=== PATIENT | male | born 1965 | race Caucasian/White ===

== ENCOUNTER 2022-12-24 16:06 | Emergency (ER) | payer OTHER, SELFPAY ==
--- NOTE | ~2022-12-24 | CT_ITS ---
EXAMINATION: CT HEAD WITHOUT CONTRAST CLINICAL INFORMATION: Headache. COMPARISON: None. TECHNIQUE: Contiguous axial imaging was performed from the skull base to vertex without intravenous administration of contrast. This CT examination was performed using dose optimization techniques as appropriate, variously including the following: *Automated exposure control *Adjustment of mA and/or kV according to patient size (this includes techniques or standardized protocols for targeted exams where dose is matched to indication/reason for exam; i.e. extremities or head) *Use of iterative reconstruction technique DLP: 714 mGy-cm FINDINGS: Metallic bodies, likely vascular coils, in the right frontal lobe generate significant streak artifacts limiting evaluation of the adjacent brain parenchyma. Otherwise, no evidence of acute intracranial hemorrhage or edematous territorial infarction within the well-seen portions of the brain. The ventricles are normal in size and configuration. No evidence for obstructive hydrocephalus. No abnormal mass effect or midline shift. No extra-axial fluid collections. No acute soft tissue or osseous abnormalities. The mastoid air cells and paranasal sinuses are clear. CT/CT head/brain wo IV con IMPRESSION: Metallic bodies generate significant artifact in the right supratentorial brain. Otherwise, no acute intracranial hemorrhage or edematous territorial infarction are noted in the well-seen portions of the parenchyma.
[2022-12-24 16:13] VITALS: BP 130/78; PULSE 85; RESP 15; O2SAT 96
[2022-12-24 16:19] VITALS: BP 135/85; PULSE 87; RESP 16; O2SAT 96; BMI 39.6
[2022-12-24 16:20] LABS: Glucose, Whole Blood 225 mg/dL (60-115)
[2022-12-24 16:52] LABS: MANUAL DIFF FLAG NO; Venous Blood Gas Refer to POC result
--- NOTE | 2022-12-24 16:52 | ED_ITS ---
HPI - General Adult General Chief complaint: General Medical Stated complaint: High blood Sugar Time Seen by Provider: 12/24/22 16:09 Source: patient and family Mode of arrival: ambulatory Limitations: no limitations History of Present Illness HPI narrative: This is a 57-year-old male history of diabetes presenting to the emergency department with dizziness, fatigue, malaise, patient tells me earlier today he had a flight from [place] prior to getting on the flight he felt extremely dizzy, he reports that they gave him orange juice and he felt better. According to patient his blood sugar was low at that time, and after the orange juice it went up to 300 and something. When he got off the plane he wanted to get evaluated because his blood sugar was in the mid 300s and he was still experiencing dizziness, occipital headache ( without vision changes, weakness, head trauma), he tells me just does not feel right. No history of DKA. Patient takes metformin twice a day he already took his dose this morning and is scheduled to take a 2nd dose before bed. Patient also reporting intermittent chest pain substernal, nonradiating. Also reporting shortness of breath both at rest and with exertion. Patient denies fevers, chills, sick contacts, nausea, vomiting, abdominal pain, vision changes, weakness. Related Data Allergies Allergy/AdvReac Type Severity Reaction Status Date / Time Unable to Assess Allergy Verified 12/24/22 16:10 Review of Systems Review of Systems: Constitutional : No Weight loss, No Fever, No Chills, + Fatigue, + Malaise ENT/Mouth : No sore throat, No Rhinorrhea Eyes: No Eye Pain, No Swelling, No Redness Cardiovascular : + Chest Pain, + SOB, No Dyspnea on Exertion, No Orthopnea, No Edema, No Palpitations Respiratory : No Cough, No Sputum, No Wheezing Gastrointestinal : No Nausea, No Vomiting, No Diarrhea, No Constipation, No abdominal Pain, No Hematochezia, No Melena Genitourinary : No Dysuria, No Urinary Frequency, No Hematuria, Musculoskeletal : No joint pain, No Myalgias, No Joint Swelling Skin : No Skin Lesions, No rash Neuro : No Weakness, No Numbness, + Dizziness, + Headache Psych : No Anxiety/Panic, No Depression All other systems reviewed and are negative Yes all other systems are reviewed and are negative [facility] Past Medical History Attestation statement: The following information was validated with the patient. Source: old records reviewed and nursing notes reviewed Social History Social History Alcohol intake: never Smoked in Last 30 Days: No Use of substances other than those prescribed or required for medical reasons: No Advance Directives: No Advance Directives Information Provided: Yes Physical Exam ED Vital Signs: Vital Signs - 24 hr 12/24/22 16:13 12/24/22 16:19 12/24/22 18:22 Temperature 98.4 F Pulse Rate 85 87 89 Respiratory Rate 15 16 16 Blood Pressure 130/78 135/85 112/71 Pulse Oximetry 96 96 96 Oxygen Delivery Method Room Air Room Air Room Air 12/24/22 18:31 12/24/22 18:33 12/24/22 18:36 Temperature Pulse Rate 88 93 95 Respiratory Rate Blood Pressure 117/74 124/79 116/73 Pulse Oximetry Oxygen Delivery Method BMI result Body Mass Index 39.6 Vital signs stable Appearance: Alert.? Oriented X3.? No acute distress.? Head: Normocephalic, atraumatic, no step-offs or deformities Eyes: Pupils equal, round and reactive to light.? Neck: Normal inspection.? Neck supple.? CVS: Normal heart rate and rhythm.? Pulses normal.? Respiratory: No respiratory distress.? Breath sounds normal.? Abdomen: Soft and nontender.? Skin: Skin warm and dry.? Normal skin color.? Normal skin turgor.? Extremities: No lower extremity edema.? No calf ttp. 5/5 strength to bilateral upper and lower extremities Back: No midline tenderness, no C-spine tenderness, full range of motion, no CVA tenderness bilaterally Neuro: Oriented X 3.? No motor deficit.? No sensory deficit. CN 2-12 intact . Negative Romberg and pronator drift. Normal [id number]-[id number], [id number], steady tandem gait normal coordination. NIH stroke scale 0. Course Reevaluation(s) Reevaluation #1: CBC wnl, chemistry with no acute findings requiring intervention. Normal potass ium and anion gap. Glucose 200, patient receiving IV fluids. Troponin, BNP negative. EKG nonischemic. D-dimer negative. Unlikely ACS, PE, CHF. UA clean. Acetone negative, VBG unremarkable unlikely that this is DKA, HHS. Time: 18:01 Reevaluation #2: Head CT with no acute intracranial hemorrhage or edematous her to oral infarction. Patient's NIH stroke scale is 0. I went to go re-evaluate patient he tells me he is feeling much better. No longer experiencing dizziness. He tells me he feels like he is back to normal. Will repeat point of care and obtain orthostatic vital signs. Time: 18:31 Reevaluation #3: Repeat point of care less than 200, orthostatic vital signs negative. Plan is to discharge home patient to continue his prescribed metformin dose. Will have him follow-up with PCP. Educated patient on diagnosis and treatment plan, answered all question, patient verbalizes understanding. At this time patient will be discharged home, advised to return with new or worsening symptoms. Educated on worrisome signs and symptoms and when to return. At this time I feel comfortable discharge home. Time: 18:44 Medications Administered Discontinued Medications Generic Name Dose Route Start Last Admin Trade Name Freq PRN Reason Stop Dose Admin Sodium Chloride 1,000 mls @ 999 mls/hr 12/24/22 16:15 12/24/22 18:30 Ns IV 12/24/22 17:15 Infused .Q1H1M JIN Infusion Medical Decision Making Medical Decision Making [facility] Narrative: 1430 57-year-old male sugars, chest pain, shortness of breath, headache. Review of systems overwhelmingly positive. Physical exam benign. Concerns for possible uncontrolled diabetes, electrolyte abnormalities. History and physical examination not consistent with PE, ACS, intracranial hemorrhage, stroke. Other differentials included dehydration or viral infection. Other differentials which are less likely include HHS and DKA Plan basic labs , point of care, will obtain head CT as patient reports an occipital headache and is poor historian, will also obtain acetone, to rule out DKA. Differential Diagnosis Differential Diagnoses: The differential diagnosis associated with the presentation includes Concerns for possible uncontrolled diabetes, electrolyte abnormalities. History and physical examination not consistent with PE, ACS, intracranial hemorrhage, stroke. Other differentials included dehydration or viral infection. Other differentials which are less likely include HHS and DKA Admission/Observation Consideration of admission/observation: Escalation of care including admission/observation considered Lab Data 12/24/22 16:45 12/24/22 16:45 Labs: Lab Results 02/28/23 02/28/23 02/28/23 Range/Units 16:11 16:45 16:45 WBC 7.6 (4.8-10.8) X10*3/uL RBC 5.10 (4.60-5.80) X10*6/uL Hgb 14.5 (14.0-18.0) g/dl Hct 42.3 (42.0-52.0) % MCV 82.9 (80.0-98.0) fL MCH 28.4 (27.0-33.0) pg MCHC 34.3 (31.0-36.0) g/dl RDW 14.5 (11.0-16.0) % Plt Count 218 (160-400) X10*3/uL MPV 8.6 L (9.4-12.4) fL Immature Gran % (Auto) 0.3 (0.0-0.4) % Neut % (Auto) 47.1 (45-73) % Lymph % (Auto) 32.2 (20-40) % Isabella % (Auto) 12.7 H (2-11) % Eos % (Auto) 6.5 H (0-4) % Baso % (Auto) 1.2 (0-2) % Lymph # (Auto) 2.4 (1.2-4.9) X10*3/uL Isabella # (Auto) 1.0 (0.1-1.2) X10*3/uL Eos # (Auto) 0.5 H (0.0-0.4) X10*3/uL Baso # (Auto) 0.1 (0.0-0.2) X10*3/uL Abs Immat Gran (auto) 0.02 (0.00-0.03) X10*3/uL Absolute Neuts (auto) 3.6 (2.0-8.3) x10*3/uL Absolute Nucleated RBC 0.000 (0.0-0.012) X10*3/uL Nucleated RBC % (auto) 0.0 (0.0-0.2) /100WBC D-Dimer High Sensitivty NG/ML VBG pH (7.32-7.43) VBG pCO2 mmHg VBG pO2 mmHg VBG HCO3 (22-26) mmol/L VBG O2 Saturation % VBG Base Excess mmol/L Sodium 137 (135-145) mmol/L Potassium 4.2 (3.3-5.1) mmol/L Chloride 99 (96-108) mmol/L Carbon Dioxide 25 (22-29) mmol/L Anion Gap 17 (12-20) BUN 18 H (9-16) mg/dL Creatinine 1.21 (0.5-1.4) mg/dL Estim Creat Clear Calc 64.6 Estimated GFR > 60 POC Glucose 225 H (60-115) mg/dL Random Glucose 200 H (60-115) mg/dL Calcium 10.0 (8.4-10.2) mg/dL Total Bilirubin 0.4 (0.0-1.0) mg/dL AST 38 H (5-37) U/L ALT 45 H (0-40) U/L Alkaline Phosphatase 96 (39-117) U/L Troponin I High Sens (<3.5-35.0) ng/L B-Natriuretic Peptide (<100) pg/mL Total Protein 7.1 (6.5-8.0) g/dL Albumin 4.4 (3.5-5.0) g/dL Urine Color Urine Appearance Urine pH (5.0-9.0) Ur Specific Tyro (1.005-1.025) Urine Protein (Neg-Trace) mg/dL Urine Glucose (UA) (Negative) mg/dL Urine Ketones (Negative) mg/dL Urine Blood (Negative) Urine Nitrite (Negative) Ur Leukocyte Esterase (Negative) Acetone, Qual Negative (Negative) COVID-19 (MAYCO) (Negative) COVID-19 Clin Com Influenza Type A (PETEY) (Negative) Influenza Type B (PETEY) (Negative) Influenza A & B Note 12/24/22 12/24/22 12/24/22 Range/Units 16:45 16:45 16:45 WBC (4.8-10.8) X10*3/uL RBC (4.60-5.80) X10*6/uL Hgb (14.0-18.0) g/dl Hct (42.0-52.0) % MCV (80.0-98.0) fL MCH (27.0-33.0) pg MCHC (31.0-36.0) g/dl RDW (11.0-16.0) % Plt Count (160-400) X10*3/uL MPV (9.4-12.4) fL Immature Gran % (Auto) (0.0-0.4) % Neut % (Auto) (45-73) % Lymph % (Auto) (20-40) % Isabella % (Auto) (2-11) % Eos % (Auto) (0-4) % Baso % (Auto) (0-2) % Lymph # (Auto) (1.2-4.9) X10*3/uL Isabella # (Auto) (0.1-1.2) X10*3/uL Eos # (Auto) (0.0-0.4) X10*3/uL Baso # (Auto) (0.0-0.2) X10*3/uL Abs Immat Gran (auto) (0.00-0.03) X10*3/uL Absolute Neuts (auto) (2.0-8.3) x10*3/uL Absolute Nucleated RBC (0.0-0.012) X10*3/uL Nucleated RBC % (auto) (0.0-0.2) /100WBC D-Dimer High Sensitivty < 150 NG/ML VBG pH (7.32-7.43) VBG pCO2 mmHg VBG pO2 mmHg VBG HCO3 (22-26) mmol/L VBG O2 Saturation % VBG Base Excess mmol/L Sodium (135-145) mmol/L Potassium (3.3-5.1) mmol/L Chloride (96-108) mmol/L Carbon Dioxide (22-29) mmol/L Anion Gap (12-20) BUN (9-16) mg/dL Creatinine (0.5-1.4) mg/dL Estim Creat Clear Calc Estimated GFR POC Glucose (60-115) mg/dL Random Glucose (60-115) mg/dL Calcium (8.4-10.2) mg/dL Total Bilirubin (0.0-1.0) mg/dL AST (5-37) U/L ALT (0-40) U/L Alkaline Phosphatase (39-117) U/L Troponin I High Sens < 3.5 (<3.5-35.0) ng/L B-Natriuretic Peptide < 10 (<100) pg/mL Total Protein (6.5-8.0) g/dL Albumin (3.5-5.0) g/dL Urine Color Urine Appearance Urine pH (5.0-9.0) Ur Specific Tyro (1.005-1.025) Urine Protein (Neg-Trace) mg/dL Urine Glucose (UA) (Negative) mg/dL Urine Ketones (Negative) mg/dL Urine Blood (Negative) Urine Nitrite (Negative) Ur Leukocyte Esterase (Negative) Acetone, Qual (Negative) COVID-19 (MAYCO) (Negative) COVID-19 Clin Com Influenza Type A (PETEY) (Negative) Influenza Type B (PETEY) (Negative) Influenza A & B Note 12/24/22 12/24/22 12/24/22 Range/Units 16:45 16:46 16:46 WBC (4.8-10.8) X10*3/uL RBC (4.60-5.80) X10*6/uL Hgb (14.0-18.0) g/dl Hct (42.0-52.0) % MCV (80.0-98.0) fL MCH (27.0-33.0) pg MCHC (31.0-36.0) g/dl RDW (11.0-16.0) % Plt Count (160-400) X10*3/uL MPV (9.4-12.4) fL Immature Gran % (Auto) (0.0-0.4) % Neut % (Auto) (45-73) % Lymph % (Auto) (20-40) % Isabella % (Auto) (2-11) % Eos % (Auto) (0-4) % Baso % (Auto) (0-2) % Lymph # (Auto) (1.2-4.9) X10*3/uL Isabella # (Auto) (0.1-1.2) X10*3/uL Eos # (Auto) (0.0-0.4) X10*3/uL Baso # (Auto) (0.0-0.2) X10*3/uL Abs Immat Gran (auto) (0.00-0.03) X10*3/uL Absolute Neuts (auto) (2.0-8.3) x10*3/uL Absolute Nucleated RBC (0.0-0.012) X10*3/uL Nucleated RBC % (auto) (0.0-0.2) /100WBC D-Dimer High Sensitivty NG/ML VBG pH (7.32-7.43) VBG pCO2 mmHg VBG pO2 mmHg VBG HCO3 (22-26) mmol/L VBG O2 Saturation % VBG Base Excess mmol/L Sodium (135-145) mmol/L Potassium (3.3-5.1) mmol/L Chloride (96-108) mmol/L Carbon Dioxide (22-29) mmol/L Anion Gap (12-20) BUN (9-16) mg/dL Creatinine (0.5-1.4) mg/dL Estim Creat Clear Calc Estimated GFR POC Glucose (60-115) mg/dL Random Glucose (60-115) mg/dL Calcium (8.4-10.2) mg/dL Total Bilirubin (0.0-1.0) mg/dL AST (5-37) U/L ALT (0-40) U/L Alkaline Phosphatase (39-117) U/L Troponin I High Sens (<3.5-35.0) ng/L B-Natriuretic Peptide (<100) pg/mL Total Protein (6.5-8.0) g/dL Albumin (3.5-5.0) g/dL Urine Color Yellow Urine Appearance Clear Urine pH 6.0 (5.0-9.0) Ur Specific Tyro 1.020 (1.005-1.025) Urine Protein Negative (Neg-Trace) mg/dL Urine Glucose (UA) 100 H (Negative) mg/dL Urine Ketones Trace (Negative) mg/dL Urine Blood Negative (Negative) Urine Nitrite Negative (Negative) Ur Leukocyte Esterase Negative (Negative) Acetone, Qual (Negative) COVID-19 (MAYCO) Negative (Negative) COVID-19 Clin Com See Note Influenza Type A (PETEY) Negative (Negative) Influenza Type B (PETEY) Negative (Negative) Influenza A & B Note See Note 12/24/22 12/24/22 Range/Units 16:48 18:28 WBC (4.8-10.8) X10*3/uL RBC (4.60-5.80) X10*6/uL Hgb (14.0-18.0) g/dl Hct (42.0-52.0) % MCV (80.0-98.0) fL MCH (27.0-33.0) pg MCHC (31.0-36.0) g/dl RDW (11.0-16.0) % Plt Count (160-400) X10*3/uL MPV (9.4-12.4) fL Immature Gran % (Auto) (0.0-0.4) % Neut % (Auto) (45-73) % Lymph % (Auto) (20-40) % Isabella % (Auto) (2-11) % Eos % (Auto) (0-4) % Baso % (Auto) (0-2) % Lymph # (Auto) (1.2-4.9) X10*3/uL Isabella # (Auto) (0.1-1.2) X10*3/uL Eos # (Auto) (0.0-0.4) X10*3/uL Baso # (Auto) (0.0-0.2) X10*3/uL Abs Immat Gran (auto) (0.00-0.03) X10*3/uL Absolute Neuts (auto) (2.0-8.3) x10*3/uL Absolute Nucleated RBC (0.0-0.012) X10*3/uL Nucleated RBC % (auto) (0.0-0.2) /100WBC D-Dimer High Sensitivty NG/ML VBG pH 7.42 (7.32-7.43) VBG pCO2 33 mmHg VBG pO2 64 mmHg VBG HCO3 22 (22-26) mmol/L VBG O2 Saturation 89.0 % VBG Base Excess -1.3 mmol/L Sodium (135-145) mmol/L Potassium (3.3-5.1) mmol/L Chloride (96-108) mmol/L Carbon Dioxide (22-29) mmol/L Anion Gap (12-20) BUN (9-16) mg/dL Creatinine (0.5-1.4) mg/dL Estim Creat Clear Calc Estimated GFR POC Glucose 196 H (60-115) mg/dL Random Glucose (60-115) mg/dL Calcium (8.4-10.2) mg/dL Total Bilirubin (0.0-1.0) mg/dL AST (5-37) U/L ALT (0-40) U/L Alkaline Phosphatase (39-117) U/L Troponin I High Sens (<3.5-35.0) ng/L B-Natriuretic Peptide (<100) pg/mL Total Protein (6.5-8.0) g/dL Albumin (3.5-5.0) g/dL Urine Color Urine Appearance Urine pH (5.0-9.0) Ur Specific Tyro (1.005-1.025) Urine Protein (Neg-Trace) mg/dL Urine Glucose (UA) (Negative) mg/dL Urine Ketones (Negative) mg/dL Urine Blood (Negative) Urine Nitrite (Negative) Ur Leukocyte Esterase (Negative) Acetone, Qual (Negative) COVID-19 (MAYCO) (Negative) COVID-19 Clin Com Influenza Type A (PETEY) (Negative) Influenza Type B (PETEY) (Negative) Influenza A & B Note Critical Care Time Critical Care Time Critical Care Time: No Discharge Plan Discharge Clinical Impression: Hyperglycemia, Chest pain, Shortness of breath, Headache Patient Disposition: Home, Self-Care Instructions: Acute Headache (ED), Chest Pain (DC), General Headache (ED), Shortness of Breath (ED), Chest Pain (ED) Additional Instructions: Take your medications as prescribed. If you were prescribed antibiotics today, it is important that you take your medication to their entirety, do not skip any doses, do not finish them early. Follow-up with your primary care provider this week. Return to the emergency department with new or worsening symptoms. Such as fevers, chills, chest pain, shortness of breath, nausea, vomiting, dizziness, headache, vision changes, lethargy In case of emergency call 911 Continue taking her metformin as prescribed. Your blood sugar came down nicely after fluid hydration. Please follow-up with your primary care provider and endocrinology. Please check your sugars and show them with your primary care provider [place] robert medicamentos seg?n lo prescrito. Si le recetaron antibi?ticos hoy, es importante que tome dong medicamento en dong totalidad, no se salte ninguna dosis, no los termine antes de tiempo. Seguimiento con dong proveedor de atenci?n primaria esta semana. Regrese al departamento de emergencias con s?ntomas nuevos o que empeoran. Peyton fiebre, escalofr?os, dolor de pecho, dificultad para respirar, n?useas, v?mitos, mareos, dolor de claudia, cambios en la visi?n, letargo En homa de emergencia llama al 911 Contin?e tomando dong metformina seg?n lo prescrito. Dong nivel de az?car en la jacklyn baj? muy bryan despu?s de la hidrataci?n con l?quidos. Por favor, esa un seguimiento con dong proveedor de atenci?n primaria y endocrinolog?a. Verifique robert niveles de az?car y mu?streselos a dong proveedor de atenci?n primaria. Referrals: Physician,Unknown J [Primary Care Provider] - 2 days
[2022-12-24 16:54] LABS: VBG Base Excess -1.3 mmol/L; VBG HCO3 22 mmol/L (22-26); VBG pCO2 33 mmHg; VBG pH 7.42 (7.32-7.43); VBG pO2 64 mmHg
[2022-12-24 16:54] LABS: Appearance Urine Clear; Basophils Absolute Auto 0.1 X10*3/uL (0.0-0.2); Basophils Percent Auto 1.2 % (0-2); Color Urine Yellow; Eosinophils Absolute Auto 0.5 X10*3/uL (0.0-0.4); Eosinophils Percent Auto 6.5 % (0-4); Glucose Urine UA 100 mg/dL (Negative); Hematocrit 42.3 % (42.0-52.0); Hemoglobin 14.5 g/dl (14.0-18.0); Imm Gran Abs Auto 0.02 X10*3/uL (0.00-0.03); Imm Gran Pct Auto 0.3 % (0.0-0.4); Leukocyte Esterase Urine Negative (Negative); Lymphocytes Absolute Auto 2.4 X10*3/uL (1.2-4.9); Lymphocytes Percent Auto 32.2 % (20-40); Mean Corpuscular HGB Conc 34.3 g/dl (31.0-36.0); Mean Corpuscular Hemoglobin 28.4 pg (27.0-33.0); Mean Corpuscular Volume 82.9 fL (80.0-98.0); Mean Platelet Volume 8.6 fL (9.4-12.4); Monocytes Percent Auto 12.7 % (2-11); Neutrophils Absolute Auto 3.6 x10*3/uL (2.0-8.3); Neutrophils Percent Auto 47.1 % (45-73); Nitrite Urine Negative (Negative); Platelet Count 218 X10*3/uL (160-400); Red Cell Distribution Width 14.5 % (11.0-16.0); Urine Blood Negative (Negative); Urine Ketones Trace mg/dL (Negative); Urine Protein Negative (Neg-Trace); White Blood Count 7.6 X10*3/uL (4.8-10.8)
[2022-12-24] MEDS: 0.9 % Sodium Chloride 1,000 ML 999 ML IV ×2 (16:55→18:43)
[2022-12-24 17:08] LABS: COVID-19 Test Negative (Negative); IDNOW Serial# 16C4AD1C
[2022-12-24 17:09] LABS: Acetone, serum QL Negative (Negative)
[2022-12-24 17:12] LABS: Alanine Aminotransferase 45 U/L (0-40); Albumin Level 4.4 g/dL (3.5-5.0); Alkaline Phosphatase 96 U/L (39-117); Anion Gap 17 (12-20); Aspartate Amino Transferase 38 U/L (5-37); Bilirubin Total 0.4 mg/dL (0.0-1.0); Blood Urea Nitrogen 18 mg/dL (9-16); Carbon Dioxide 25 mmol/L (22-29); Chloride 99 mmol/L (96-108); Creatinine Clr Calc Pharmacy 64.6; Estimated Glomerular Filt Rate > 60; Glucose Random 200 mg/dL (60-115); Potassium 4.2 mmol/L (3.3-5.1); Sodium 137 mmol/L (135-145); Total Protein 7.1 g/dL (6.5-8.0)
[2022-12-24 17:18] LABS: B Type Natriuretic Peptide < 10 pg/mL (<100)
[2022-12-24 17:19] LABS: D Dimer High Sensitivity < 150 NG/ML
[2022-12-24 17:20] LABS: Troponin-I High Sensitivity < 3.5 ng/L (<3.5-35.0)
[2022-12-24 17:20] LABS: IDNOW Serial# BCCEAD1C; Influenza A Negative (Negative); Influenza B2 Negative (Negative)
[2022-12-24 18:22] VITALS: BP 112/71; PULSE 89; RESP 16; TEMP 36.9; O2SAT 96
[2022-12-24 18:31] VITALS: BP 117/74; PULSE 88
[2022-12-24 18:33] VITALS: BP 124/79; PULSE 93
[2022-12-24 18:33] LABS: Glucose, Whole Blood 196 mg/dL (60-115)
[2022-12-24 18:36] VITALS: BP 116/73; PULSE 95
--- NOTE | 2022-12-24 20:07 | PC.NURSE ---
Pt assess and discharge by provider, This Rn print and reviewed discharge with pt, pt verbalized understanding. no distressed at discharge.
== END 2022-12-24 20:11 | disposition home or self-care (01) ==
PROVIDERS: Physician Assistant; Emergency Provider Emergency Medicine
DX: R07.89 Other chest pain (principal); R06.02 Shortness of breath; R51.9 Headache, unspecified; Z20.822 Contact with and (suspected) exposure to COVID-19; Z20.828 Contact with and (suspected) exposure to other viral communicable diseases; Z79.899 Other long term (current) drug therapy
CPT/HCPCS: 36415; 70450; 80053; 81003; 82009; 82803; 82947; 83880; 84484; 85025; 85379; 87502; 87635; 96360; 96361; 99284

== ENCOUNTER 2025-02-10 19:51 | Emergency (ER) | payer OTHER, SELFPAY ==
--- NOTE | ~2025-02-10 | XR_ITS ---
CLINICAL HISTORY: pain Three views of the lumbar spine. Findings: No fractures or suspicious bony lesions are seen. There is minimal spondylolisthesis of T12 on L1. There are moderate to advanced multilevel degenerative changes. Impression: Chronic findings as described. This document has been electronically signed by: Angel Santos MD on 02/10/2025 20:50:20
[2025-02-10 20:12] VITALS: BP 190/91; PULSE 77; RESP 18; O2SAT 98; BMI 31.2
--- NOTE | 2025-02-10 20:19 | ED_ITS ---
HPI - General Adult General Chief complaint: Back Pain/Injury Stated complaint: lower back pain ? kidney stone Time Seen by Provider: 02/10/25 23:38 Source: patient Limitations: no limitations History of Present Illness ED Provider: Sera Martines PA-C HPI narrative: 59-year-old male presents with right-sided low back pain x2 months. Patient states his discomfort was precipitated by moving a box. Pain over right low back with radiation down right lower extremity. Pain worse with ambulation. Associated paresthesia at time. Denies weakness of lower extremity, urinary retention or bowel incontinence. Related Data Previous Rx's ?Medication ?Instructions ?Recorded ketorolac 10 mg tablet 10 mg PO Q6H PRN pain #20 tabs 02/11/25 methocarbamol 750 mg tablet 750 mg PO Q8H PRN pain, moderate 02/11/25 #15 tabs methylprednisolone 4 mg tablets in 4 mg PO QAM #21 ea 02/11/25 a dose pack (Medrol (Willis)) Allergies Allergy/AdvReac Type Severity Reaction Status Date / Time No Known Allergies Allergy Verified 02/10/25 20:15 Review of Systems 2 Review of Systems: Yes all other systems are reviewed and are negative Constitutional: Constitutional: Denies fatigue and Denies fever(s) Cardiovascular: Cardiovascular: Denies chest pain and Denies dyspnea Respiratory: Respiratory: Denies dyspnea Gastrointestinal: Gastrointestinal: Denies abdominal pain Musculoskeletal: Musculoskeletal: Reports back pain, Denies muscle weakness, Denies numbness, Reports radiating pain into limb and Reports tingling Neurologic: Denies numbness and Reports tingling Endocrine: Endocrine: Denies fatigue PMF Past Medical History Attestation statement: The following information was validated with the patient. Social History Social History Alcohol intake: never Smoked in Last 30 Days: No Use of substances other than those prescribed or required for medical reasons: No Advance Directives: No Advance Directives Information Provided: No Do you have a plan to hurt others: No Plan Physical Exam ED Vital Signs: Vital Signs - 24 hr 02/10/25 20:12 02/10/25 23:04 02/11/25 00:00 Temperature 98.5 F 98.3 F Pulse Rate 77 70 68 Respiratory Rate 18 16 16 Blood Pressure 190/91 H 165/81 H 140/61 H Pulse Oximetry 98 98 98 Oxygen Delivery Method Room Air Room Air Room Air BMI result Body Mass Index 31.2 Const Other: Alert Orientation/consciousness: patient oriented x3 Resp Effort & Inspection: normal respiratory effort Cardio Other: Normal peripheral perfusion Skin Other: Warm dry no rash Neuro Other: Antalgic gait General: patient oriented x3, no focal motor deficits and CN's II-XI intact bilaterally Extrem Other: Strength 5/5 bilateral lower extremities Psych Other: Cooperative Course Course Course Narrative: This is a rapid medical exam performed by Alon Fields [employer]: Additional HPI, ROS, PE not included below will be deferred to primary provider. Patient is a 59-year-old male presenting emergency department with complaint of right lower back pain for the past 2 months. States pain radiates down right leg to foot. Also reports history of kidney stones, is unsure if this is the cause of his symptoms. Plan: Labs, UA, xray Medications Administered Discontinued Medications Generic Name Dose Route Start Last Admin Trade Name Freq PRN Reason Stop Dose Admin Ketorolac Tromethamine 15 mg 02/11/25 00:27 02/11/25 00:43 Ketorolac Tromethamine 15 Mg/Ml Vial IM 02/11/25 00:28 15 mg ONCE ONE Administration Methocarbamol 750 mg 02/11/25 00:27 02/11/25 00:43 Methocarbamol 750 Mg Tablet PO 02/11/25 00:28 750 mg ONCE ONE Administration Medical Decision Making Medical Decision Making [facility] Narrative: 59-year-old male presents with right-sided low back pain x2 months. Patient states his discomfort was precipitated by moving a box. Pain over right low back with radiation down right lower extremity. Pain worse with ambulation. Associated paresthesia at time. Denies weakness of lower extremity, urinary retention or bowel incontinence. Problem: Ongoing back pain History: Per patient I have considered the following differential diagnoses: Lumbar strain, compression fracture, lumbar radiculopathy, cauda equina Plan: Screening labs and imaging obtained from triage, the patient has a arthritis. He is having radicular symptoms without red flag signs symptoms concerning for cord compression. We will Treat appropriately. I have independently reviewed the following tests: Labs: No leukocytosis, not anemic, urine not infected no hematuria Lumbar spine : Findings: No fractures or suspicious bony lesions are seen. There is minimal spondylolisthesis of T12 on L1. There are moderate to advanced multilevel degenerative changes. Impression: Chronic findings as described. Lab Data 02/10/25 20:30 02/10/25 20:30 Labs: Lab Results 02/10/25 02/10/25 02/10/25 Range/Units 20:29 20:30 23:57 WBC 8.7 (4.8-10.8) X10*3/uL RBC 5.55 (4.60-5.80) X10*6/uL Hgb 15.4 (14.0-18.0) g/dl Hct 46.3 (42.0-52.0) % MCV 83.4 (80.0-98.0) fL MCH 27.7 (27.0-33.0) pg MCHC 33.3 (31.0-36.0) g/dl RDW 15.0 (11.0-16.0) % Plt Count 278 D (160-400) X10*3/uL MPV 9.0 L (9.4-12.4) fL Immature Gran % (Auto) 0.2 (0.0-0.4) % Neut % (Auto) 44.5 L (45-73) % Lymph % (Auto) 31.9 (20-40) % Clay % (Auto) 11.9 H (2-11) % Eos % (Auto) 10.6 H (0-4) % Baso % (Auto) 0.9 (0-2) % Lymph # (Auto) 2.8 (1.2-4.9) X10*3/uL Clay # (Auto) 1.0 (0.1-1.2) X10*3/uL Eos # (Auto) 0.9 H (0.0-0.4) X10*3/uL Baso # (Auto) 0.1 (0.0-0.2) X10*3/uL Abs Immat Gran (auto) 0.02 (0.00-0.03) X10*3/uL Absolute Neuts (auto) 3.9 (2.0-8.3) x10*3/uL Absolute Nucleated RBC 0.000 (0.0-0.012) X10*3/uL Nucleated RBC % (auto) 0.0 (0.0-0.2) /100WBC Sodium 142 (135-145) mmol/L Potassium 4.3 (3.3-5.1) mmol/L Chloride 107 (96-108) mmol/L Carbon Dioxide 24 (22-29) mmol/L Anion Gap 15 (12-20) BUN 16 (9-16) mg/dL Creatinine 1.15 (0.5-1.4) mg/dL Estim Creat Clear Calc 58.5 Estimated GFR > 60 POC Glucose 91 (60-115) mg/dL Random Glucose 96 (60-115) mg/dL Calcium 9.9 (8.4-10.2) mg/dL Total Bilirubin 0.6 (0.0-1.0) mg/dL AST 34 (5-37) U/L ALT 30 (0-40) U/L Alkaline Phosphatase 120 H (39-117) U/L Total Protein 7.4 (6.5-8.0) g/dL Albumin 4.3 (3.5-5.0) g/dL Urine Color Yellow Urine Appearance Clear Urine pH 6.0 (5.0-9.0) Ur Specific [place] 1.025 (1.005-1.025) Urine Protein Negative (Neg-Trace) mg/dL Urine Glucose (UA) Negative (Negative) mg/dL Urine Ketones Trace (Negative) mg/dL Urine Blood Negative (Negative) Urine Nitrite Negative (Negative) Ur Leukocyte Esterase Negative (Negative) Discharge Plan Discharge Clinical Impression: Lumbar radiculopathy Patient Disposition: Home, Self-Care Instructions: Lumbar Radiculopathy (ED) Additional Instructions: All of your labs were normal, the x-ray revealed that you do have arthritis in the back. See home care instructions. You were also being treated for sciatica. See home care instructions. Take the ketorolac as directed this is an anti-inflammatory, take it with food. Take the Medrol Dosepak as directed this is another anti-inflammatory. Use the methocarbamol as needed for further pain, this is a muscle relaxant, do not drive or operate machinery while taking this medication. Follow up with your primary care provider next week. Prescriptions: New methylprednisolone [Medrol (Willis)] 4 mg tablets,dose pack 4 mg PO QAM Qty: 21 0RF Rx Instructions: Take per package instructions methocarbamol 750 mg tablet 750 mg PO Q8H PRN (Reason: pain, moderate) Qty: 15 0RF ketorolac 10 mg tablet 10 mg PO Q6H PRN (Reason: pain) Qty: 20 0RF Rx Instructions: maximum total duration of 5 days from all oral, intranasal, or parenteral formulations. Patient had dose of Toradol here in the emergency department. Print Language: Bahraini
[2025-02-10 20:41] LABS: MANUAL DIFF FLAG NO
[2025-02-10 20:43] LABS: Basophils Absolute Auto 0.1 X10*3/uL (0.0-0.2); Basophils Percent Auto 0.9 % (0-2); Eosinophils Absolute Auto 0.9 X10*3/uL (0.0-0.4); Eosinophils Percent Auto 10.6 % (0-4); Hematocrit 46.3 % (42.0-52.0); Hemoglobin 15.4 g/dl (14.0-18.0); Imm Gran Abs Auto 0.02 X10*3/uL (0.00-0.03); Imm Gran Pct Auto 0.2 % (0.0-0.4); Lymphocytes Absolute Auto 2.8 X10*3/uL (1.2-4.9); Lymphocytes Percent Auto 31.9 % (20-40); Mean Corpuscular HGB Conc 33.3 g/dl (31.0-36.0); Mean Corpuscular Hemoglobin 27.7 pg (27.0-33.0); Mean Corpuscular Volume 83.4 fL (80.0-98.0); Monocytes Percent Auto 11.9 % (2-11); Neutrophils Absolute Auto 3.9 x10*3/uL (2.0-8.3); Neutrophils Percent Auto 44.5 % (45-73); Platelet Count 278 X10*3/uL (160-400); Red Blood Count 5.55 X10*6/uL (4.60-5.80); White Blood Count 8.7 X10*3/uL (4.8-10.8)
[2025-02-10 20:44] LABS: Appearance Urine Clear; Color Urine Yellow; Glucose Urine UA Negative (Negative); Leukocyte Esterase Urine Negative (Negative); Nitrite Urine Negative (Negative); Specific Gravity - Urine 1.025 (1.005-1.025); Urine Blood Negative (Negative); Urine Ketones Trace mg/dL (Negative); Urine Protein Negative (Neg-Trace)
[2025-02-10 21:06] LABS: Alanine Aminotransferase 30 U/L (0-40); Albumin Level 4.3 g/dL (3.5-5.0); Anion Gap 15 (12-20); Aspartate Amino Transferase 34 U/L (5-37); Bilirubin Total 0.6 mg/dL (0.0-1.0); Blood Urea Nitrogen 16 mg/dL (9-16); Calcium 9.9 mg/dL (8.4-10.2); Carbon Dioxide 24 mmol/L (22-29); Chloride 107 mmol/L (96-108); Creatinine Clr Calc Pharmacy 58.5; Estimated Glomerular Filt Rate > 60; Glucose Random 96 mg/dL (60-115); Potassium 4.3 mmol/L (3.3-5.1); Sodium 142 mmol/L (135-145); Total Protein 7.4 g/dL (6.5-8.0)
[2025-02-10 21:13] LABS: Alkaline Phosphatase 120 U/L (39-117)
--- OUTSIDE RECORDS SUMMARY | 2025-02-10 22:19 | XMS_ITS | Patient Health Record ---
Author Organization [facility] Address [address], [place] [address] Care Team Providers Care Patient Care Specialist Name Role Phone Shane Zamora Primary Care Provider ALLERGIES No Known Allergies REASON FOR REFERRAL No Information MEDICATIONS Medication SIG (Take, Route, Frequency, Duration) Notes Start Date End Date Status Isosorbide Mononitrate ER 60 MG 1 tablet in the morning Orally Once a day Active traZODone HCl 100 MG 1 tablet at bedtime Orally Once a day Active Polyethylene Glycol 3350 17 GM/SCOOP 1 scoop as needed Orally Once a day Active Bydureon BCise 2 MG/0.85ML 2 MG Subcutan eous Once a week Active Allopurinol 100 MG 1 tablet Orally Twic e a day Active DULoxetine HCl 30 MG 3 capsules Orally O nce a day Active lamoTRIgine 100 MG 1 tablet Orally Once a day Active clonazePAM 1 MG 1 tablet as needed Orally Every 12 hours for 30 days 10/22/2021 Active Nitroglycerin 0.4 MG as directed Subling ual Every 5 min Active oxyCODONE HCl 5 MG 1 tablet as needed Orally every 6 hrs for 30 days 10/22/2021 Active Clopidogrel Bisulfate 75 MG 1 tablet Ora lly Once a day Active metFORMIN HCl 500 MG 1 tablet with a tien l Orally twice a day Active Albuterol Sulfate HFA 108 (9 0 Base) MCG/ACT 2 puffs as needed Inhalation every 6 hrs Active hydroCHLOROthiazide 25 MG 1 tablet in th e morning Orally Once a day Active Tamsulosin HCl 0.4 MG 1 capsule Orally O nce a day Active Insulin Glargine 100 UNIT/ML 18 Units at bedtime Subcutaneous Once a day Active Aspirin 81 MG 1 tablet Orally Once a day Active Sertraline HCl 50 MG 1 tablet Orally Onc e a day Active Lactulose 10 GM/15ML 30 ml Orally Once a day Active Docusate Sodium 100 MG 1 capsule Orally Once a day Active Atorvastatin Calcium 40 MG 1 tablet Oral ly Once a day Active Ranolazine ER 500 MG 1 tablet Orally Twi ce a day Active Pantoprazole Sodium 40 MG 1 tablet Orall y Once a day Active Gabapentin 600 MG 1 tablet Orally Thre e times a day Active Furosemide 20 MG 1 tablet Orally Once a day Active SOCIAL HISTORY Tobacco Use: Social History Observation Description Date Details (start date - stop date) Former Smoker NA - NA Sex Assigned At : Social History Observation Description Sex Assigned At Unknown Tobacco Use/Smoking Question Answer Notes Are you a former smoker Alcohol Screen Question Answer Notes Did you have a drink containing alcohol in the p ast year? No Points 0 Interpretation Negative PROBLEMS Problem Type ICD Code Onset Dates Problem Status W/U Status Risk SNOMED Code Notes Problem Type 2 diabetes mellitus with hyperglycemia (E11.65) Active confirmed Hyperglycemia d ue to type 2 diabetes mellitus (857964962225990) Problem Hyperlipidemia, unspecified (E78.5) Active confirmed Hyperlipidemia (33722096) Problem Major depressive disorder, recurrent, moderate (F33.1) Active confirmed Moderate recurrent major depression (97385899) Problem Generalized anxiety disorder (F41.1) Active confirmed Generalized anxiety disorder (18191764) Problem Insomnia, unspecified (G47.00) Active confirmed Insomnia (871157224) Problem Essential (primary) hypertension (I10) Active confirmed Essential hypertension (09037399) Problem Atherosclerotic heart disease of [place] coronary artery without angina pectoris (I25.10) Active confirmed Atherosclerotic heart disease of [place] coronary artery without angina pectoris (253059859059198) Problem Gastro-esophageal reflux disease without esophagitis (K21.9) Active confirmed Gastro-esophage al reflux disease without esophagitis (867629618) Problem Constipation, unspecified (K59.00) Active confirmed Constipation (40361889) Problem Gout, unspecified (M10.9) Active confirmed Gout (06900899) Problem Muscle weakness (generalized) (M62.81) Active confirmed Muscle weakness (53748195) Problem Unspecified rotator cuff tear or rupture of left shoulder, not specified as traumatic (M75.102) Active confirmed Tear of left rotator cuff (0523833605113607 2) Problem Enlarged prostate with lower urinary tract symptoms (N40.1) Active confirmed Lower urinary tract symptoms due to benign prostatic hypertrophy (08528299362719) PLAN OF TREATMENT No Information MEDICAL (GENERAL) HISTORY Medical History History ICD Code Rotator cuff arthropathy Constipation Coronary artery disease Diabetes mellitus Anxiety Depression BPH Asthma Degenerative joint disease Cervical spondylosis Gout Stroke Sleep apnea Arteriovenous malformations of the brain Hypertension Dyslipidemia Nephrolithiasis Insomnia History of substance abuse GERD Surgical History Surgery Date(Month/Year) Cardiac catheterization with stents Bilateral carpal tunnel release Cystoscopy and lithotripsy Ablation of arteriovenous malformations Left rotator cuff surgery 09/2021 Hospitalization History Reason Date(Month/Year) Abdominal pain, constipation, shoulder p ain 09/2021
--- OUTSIDE RECORDS SUMMARY | 2025-02-10 22:19 | XMS_ITS ---
Author Organization [facility], [facility] Address [address] [place] [address] Care Team Providers Care Carcass Trimmer Name Role Phone Indu STEPHENS, Renetta Unavailable Un available Rick Orozco Unavailable [phone] Encounters Encounter Location Date Provider Diagnosis [address] [facility] [address], [facility] [address] [place] [address] 01/16/2024 Rick Orozco Plan Of Treatment No Information Progress Notes * Bulmaro GARRIDOoDOB: [birth year] (59 yo M)Acc No.[id number]:01/16/2024 Progress Notes Patient:?ADITYA Justin Appointment Provider:?Rick Orozco DO :1965???Age:58 Y???Sex:Male Artie e:01/16/2024 Address:[address] [place], [place] [address]deepa toro [facility] Subjective: * Chief Complaints: * ??? * HPI: ???Pain Management:?The severity of the pain is?change after asking patient. .?New symptom(s):? Patient is ___ years old, presenting to our clinic with complaints of back and ____ pain. Patient states that currently the pain is worse than pain. Patient was referred by: The patient's pain began Since it started, it has been constant / intermittent The neck pain radiates to The lower back pain radiates to The patient's pain is described as The pain is worsened by The patient has tried the following modalities to treat the pain: Clinical encounter chaperoned by: PAIN SCORE ON NUMERIC SCALE IS DOCUMENTED ABOVE. * ROS:?Neurologic:?Pain?Pt. reports pain.?6 point ROS:?General/Constitutional ?denies fever, chills, night sweats, unexplained weight loss.?Allergy/Immunology:?Patient denies?swollen lymph glands.?Ophthalmologic:?Patient denies?loss of vision, double vision, eye pain, eye discharge.?ENT:?Patient denies?hoarseness, trouble swallowing, hearing loss, ear pain, .?Respiratory:?Patient denies?respiratory depression, difficulty breathing, cough, wheezing, reports of excessive snoring, reports of apnea while asleep.?Endocrine:?Patient denies?excessive sweating, heat intolerance, cold intolerance, fatigue.?Cardiovascular:?Patient denies?chest pain, new leg swelling, palpitations, heart murmur.?Gastrointestinal:?Patient denies?nausea, vomiting, diarrhea, constipation, blood in stool, abdominal pain.?Hematology:?Patient denies?easy bruising, prolonged bleeding.?Skin:?Patient denies?hives, itching, rash.?Psychiatric:?Patient denies?depression, anxiety, alcohol addiction, illegal drug abuse, prescription drug abuse, recent substance abuse treatment, craving medications, difficulty controlling medication use, family or work problems related to medication use, suicidal thoughts, homicidal thoughts.? * Medical History:? Objective: * Vitals:? * Examination: ???PHYSICAL EXAM: ?GENERAL APPEARANCE:?NAD, AAO x3, appears stated age, does not appear over sedated .?HEENT?normocephalic, anicteric sclera, no evidence of airway obstruction, EOMI.?CV?extremities appear to be grossly perfused, no obvious chest deformity.?RESPIRATORY?unlabored respirations, no respiratory depression.?ABDOMEN:? nondistended, no guarding noted.?EXTREMITIES:?no clubbing/cyanosis.?SKIN:? no gross lesions noted.?PSYCH?responds to commands, converses appropriately, cooperative, normal mood and affect.?MUSCULOSKELETAL?strength grossly intact in bilateral UE/LE..?NEUROLOGICAL?sensation and DTRs grossly intact in bilateral UE and LE.?CERVICAL?POSITIVE facet loading noted ?,decreased range of motion ?, tenderness to palpation along mid cervical facet joints ? .?THORACIC?Normal alignment and ROM. No deformity. No axial or paraspinal tenderness.?LUMBOSACRAL?POSITIVE facet loading noted ?, decreased range of motion ?, tenderness to palpation along lower lumbar facet joints ?, negative SLR.? Assessment: Plan: * Treatment: * Preventive Medicine:? ??Counseling:?pain Management?Follow-up Plan documented:?Yes.? * * Electronic signature of Barak Orozco DO on 02/10/2025 at 09:36 PM EDT Sign off status: Pending * Appointment Provider:?DO Rashaun Cisneros te:?01/16/2024 Generated for Efrain yusuf/Lainey/Arikitting on:?02/10/2025 09:36 PM EDT History and Physical Notes * HPI (History of Present Illness) Category Sub-Category Detail Notes Category Not es Pain Management The severity of the pain is change after asking patient. New symptom(s) Patient is ___ years old, presenting to our clinic with complaints of back and ____ pain. Patient states that currently the pain is worse than pain. Patient was referred by: The patient's pain began Since it started, it has been constant / intermittent The neck pain radiates to The lower back pain radiates to The patient's pain is described as The pain is worsened by The patient has tried the following modalities to treat the pain: Clinical encounter chaperoned by: PAIN SCORE ON NUMERIC SCALE IS DOCUMENTED ABOVE. Examination Category Sub-Category Detail Notes Category Not es PHYSICAL EXAM GENERAL APPEARANCE: PADMINI AAJosh x3, appears stated age, does not appear over sedated HEENT normocephalic, anict garrett sclera, no evidence of airway obstruction, EOMI CV extremities appear t o be grossly perfused, no obvious chest deformity CERVICAL POSITIVE facet loading noted ,decreased range of motion , tenderness to palpation along mid cervical facet joints MUSCULOSKELETAL strength grossly int act in bilateral UE/LE. RESPIRATORY unlabored respiratio ns, no respiratory depression ABDOMEN: nondistended, no gua rding noted SKIN: no gross lesions not ed EXTREMITIES: no clubbing/cyanosis THORACIC Normal alignment and ROM. No deformity. No axial or paraspinal tenderness LUMBOSACRAL POSITIVE facet loading noted , decreased range of motion , tenderness to palpation along lower lumbar facet joints , negative SLR PSYCH responds to commands , converses appropriately, cooperative, normal mood and affect NEUROLOGICAL sensation and DTRs g rossly intact in bilateral UE and LE
--- OUTSIDE RECORDS SUMMARY | 2025-02-10 22:19 | XMS_ITS | CCD ---
Author Name Karen Calero NP Address [address] [facility] [address] [address] [place] [address] Phone Organization 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 Name Role Phone Alycia Weaver NP Primary Care Provider Unavailabl e Unavailable Chronic Care Management Unavaila ble Summary Purpose DataExchange Insurance Providers Payer name Policy type / Coverage type Covered libertarian ID Effective Begin Date Effective End Date MEDICARE [place] [id number] Unknown Unknown NO COPAY HOLD [id number] Unknown Unknown Family History Family History data not found Problems Condition Codes Effective Dates Condition St atus At high risk for falls ICD-10: Z91.81 ICD-9: V15.88 04/02/2024 Active Bipolar disorder ICD-10: F31.9 ICD-9: 296.80 06/10/2023 Active CAD (coronary artery disease) ICD-10: I2 5.10 ICD-9: 414.00 06/10/2023 Active DM2 (diabetes mellitus, type 2) ICD-10: E11.9 ICD-9: 250.00 06/10/2023 Active 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 ICD-9: 278.00 12/09/2023 Active Frailty ICD-10: R54 ICD-9: 797 04/02/2024 Active Gout ICD-10: M10.9 ICD-9: 274.9 06/10/2023 Active H/O heart artery stent ICD-10: Z95.5 ICD-9: V45.82 06/10/2023 Active Hemiplegia ICD-10: G81.90 ICD-9: 342.90 12/09/2023 Active HLD (hyperlipidemia) ICD-10: E78.5 ICD-9: 272.4 06/10/2023 Active HTN (hypertension) ICD-10: I10 ICD-9: 401.9 06/10/2023 Active Hx of syncope ICD-10: Z87.898 ICD-9: V15.89 04/02/2024 Active Leg edema ICD-10: R60.0 ICD-9: 782.3 06/10/2023 Active Malaise and fatigue ICD-10: R53.81 ICD-9: 780.79 06/17/2024 Active Morbid (severe) obesity due to excess calories ICD-10: E66.01 ICD-9: 278.01 12/09/2023 Active Neuropathy ICD-10: G62.9 ICD-9: 355.9 06/10/2023 Active Other fatigue ICD-10: R53.83 06/17/2024 Active Pulmonary embolism ICD-10: I26.99 ICD-9: 415.19 06/17/2024 Active Recurrent falls ICD-10: R29.6 ICD-9: V15.88 04/02/2024 Active Spinal cord disorder ICD-10: G95.9 ICD-9: 336.9 12/09/2023 Active Syncope and collapse ICD-10: R55 ICD-9: 780.2 06/17/2024 Active Tremors of nervous system ICD-10: R25.1 ICD-9: 781.0 04/02/2024 Active Vascular disease ICD-10: I99.9 ICD-9: 459.9 12/09/2023 Active Colon cancer screening ICD-10: Z12.11 ICD-9: V76.51 04/02/2024 Active Medications Medication Codes Instructions Start Date Stop Date Status Fill Instructions nitroglycerin 0.4 mg sublingual tablet RxNorm: 208317 Take 1 Tablet(s) Sublingual every 5 minutes as needed for chest pain. Do not exceed 3 doses in 15 minutes 04/02/20 24 024 Inactive albuterol sulfate HFA 90 mcg/actuation aerosol inhaler RxNorm: 8001301 Administer 2 Puff(s) Inhalation every 6 hours as needed 04/02/20 24 024 Inactive Toujeo Max U-300 SoloStar 300 unit/mL (3 mL) subcutaneous insulin pen RxNorm: 0723273 Administer 13 Unit(s) Subcutaneous two times a day 13 units in the morning and 13 units in the evening 04/02/20 No Stop Date Active Flonase Allergy Relief 50 mcg/actuation nasal spray,suspension RxNorm: 5569918 [place] 2 [place] Nasal every day 04/02/20 24 Inactive isosorbide mononitrate ER 30 mg tablet,extended release 24 hr RxNorm: 602533 Take 1 Tablet(s) Oral every morning 04/02/20 Active Ozempic 2 mg/dose (8 mg/3 mL) subcutaneous pen injector RxNorm: 9257648 Administer 2 Milligram(s) Subcutaneous once a week 04/02/20 No Stop Date Active duloxetine 30 mg capsule,delayed release RxNorm: 380531 Take 3 Capsule(s) Oral once daily 04/02/20 025 Active olanzapine 7.5 mg tablet RxNorm: 572309 Take 1 Tablet(s) Oral every night at bedtime 04/02/20 025 Active metformin 1,000 mg tablet RxNorm: 775797 Take 1 Tablet(s) Oral two times a day 04/02/20 025 Active allopurinol 100 mg tablet RxNorm: 120232 Take 1 Tablet(s) Oral 2 times a week 04/02/20 025 Active loratadine 10 mg tablet RxNorm: 607861 Take 1 Tablet(s) Oral every day 04/02/20 025 Active lisinopril 20 mg tablet RxNorm: 321349 Take 1 Tablet(s) Oral every day 04/02/20 025 Active buspirone 10 mg tablet RxNorm: 580332 Take 1 Tablet(s) Oral two times a day 04/02/20 24 024 Inactive lisinopril 20 mg tablet RxNorm: 475457 Take 1 Tablet(s) Oral every day 12/09/19 24 024 Inactive aspirin 81 mg tablet,delayed release RxNorm: 729081 Take 1 Tablet(s) Oral every day 06/10/20 023 Inactive ranolazine ER 500 mg tablet,extended release,12 hr RxNorm: 041505 Take 1 Tablet(s) Oral two times a day 06/10/20 No Stop Date Active furosemide 20 mg tablet RxNorm: 167653 Take 1 Tablet(s) Oral every day 06/10/20 No Stop Date Active hydrochlorothiazide 12.5 mg tablet RxNorm: 638118 Take 1 Tablet(s) Oral every day 06/10/20 No Stop Date Active pantoprazole 40 mg tablet,delayed release RxNorm: 586822 Take 1 Tablet(s) Oral every morning 06/10/20 No Stop Date Active divalproex 500 mg tablet,delayed release RxNorm: 7975002 Take 1 Tablet(s) Oral two times a day for mood 06/10/20 No Stop Date Active atorvastatin 40 mg tablet RxNorm: 950181 Take 1 Tablet(s) Oral every evening 06/10/20 023 Inactive gabapentin 600 mg tablet RxNorm: 764047 Take 1 Tablet(s) Oral two times a day 06/10/20 No Stop Date Active citalopram 20 mg tablet RxNorm: 082108 Take 1 Tablet(s) Oral every day 06/10/20 No Stop Date Active clopidogrel 75 mg tablet RxNorm: 222154 Take 1 Tablet(s) Oral every day 06/10/20 No Stop Date Active hydroxyzine HCl 25 mg tablet RxNorm: 521535 Take 1 Tablet(s) Oral two times a day as needed for anxiety 06/10/20 No Stop Date Active buspirone 15 mg tablet RxNorm: 982372 Take 1 Tablet(s) Oral two times a day for anxiety 06/10/20 024 Inactive Ozempic 1 mg/dose (4 mg/3 mL) subcutaneous pen injector RxNorm: 7542706 Inject 1 Milligram(s) Subcutaneous once a week 06/10/20 024 Inactive duloxetine 60 mg capsule,delayed release RxNorm: 013273 Take 1 Capsule(s) Oral every day 06/10/20 024 Inactive metformin 500 mg tablet RxNorm: 183494 Take 1 Tablet(s) Oral two times a day 06/10/20 023 Inactive quetiapine 400 mg tablet RxNorm: 030832 Take 1 Tablet(s) Oral every evening for sleep and pspychosis 06/10/20 024 Inactive lisinopril 10 mg tablet RxNorm: 007850 Take 1 Tablet(s) Oral every day 06/10/20 024 Inactive Toujeo SoloStar U-300 Insulin 300 unit/mL (1.5 mL) subcutaneous pen RxNorm: 9966514 Administer 60 Unit(s) Subcutaneous every morning and 30 Units every evening 06/10/20 024 Inactive allopurinol 100 mg tablet RxNorm: 716239 Take 1 Tablet(s) Oral every day 06/10/20 024 Inactive Toujeo Max U-300 SoloStar subcutaneous RxNorm: 8775364 subcutaneous 06/10/20 023 Inactive Medication Administered No Medication Administered data Procedures Procedure Codes Date Screening for clinical depre ssion is positive and follow up plan documented CPT-4: G8431 06/17/2024 MED LIST DOCD IN [facility] CPT-4: 1159F 06/17/2024 RVW MEDS BY RX/DR IN [facility] CPT-4: 1160F 2023 Discharge Meds Reconciled w/ Current Med list CP T-4: 1111F 06/17/2024 Amnt pain noted; pain prsnt CPT-4: 1125F 05/28 Screening for clinical depre ssion is positive and follow up plan documented CPT-4: G8431 06/17/2024 [id number] CPT-4: 74940 Unknown [id number]-Bwgjoglyivmxlzn CPT-4: 04470 Unknown W8L-Knyuqyzcdgompwk CPT-4: 58498 Unknown Fecal Occult Blood Test (FOBT) Screening CPT-4: G0328 Unknown Vital Signs Date Vital 06/17/2024 Blood Pressure 1: 100/70 Code: 8480-6 BMI: 34.8 Code: 75254-6 Heart Rate 1: 87 bpm Height: 5'1 Code: 8302-2 Respiratory Rate: 18 bpm SpO2: 97% Temperature: 35.9 (C) / 96.7 (F) Weight: 184 lbs 3 oz Code: 25146-0 Reason For Visit Reason For Visit Effective Dates Notes established patient visit 06/17/2024 diabetes mellitus 06/17/2024 hyperlipidemia disease 06/17/2024 HTN 06/17/2024 CAD 06/17/2024 post ED/hospital visit 06/17/2024 fainting/passing out episodes 06/17/2024 Encounters Encounter Performer Location Location Address Codes Artie e ([id number]) Home or Residence Visit Est Pt - Moderate Level, 40 mins Diagnosis: At high risk for falls[ICD10: Z91.81] Diagnosis: Bipolar disorder[ICD10: F31.9] Diagnosis: CAD (coronary artery disease)[ICD10: I25.10] Diagnosis: DM2 (diabetes mellitus, type 2)[ICD10: E11.9] Diagnosis: 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] Diagnosis: HLD (hyperlipidemia)[ ICD10: E78.5] Diagnosis: Hemiplegia[ICD10: G81.90] Diagnosis: H/O heart artery stent[ICD10: Z95.5] Diagnosis: Gout[ICD10: M10.9] Diagnosis: Frailty[ICD10: R54] Diagnosis: HTN (hypertension)[IC D10: I10] Diagnosis: Hx of syncope[ICD10: Z87.898] Diagnosis: Morbid (severe) obesity due to excess calories[ICD10: E66.01] Diagnosis: Spinal cord disorder[ICD10: G95.9] Diagnosis: Tremors of nervous system[ICD10: R25.1] Diagnosis: Vascular disease[ICD10: I99.9] Diagnosis: Neuropathy[ICD10: G62.9] Diagnosis: Recurrent falls[ICD10: R29.6] Diagnosis: Leg edema[ICD10: R60.0] Diagnosis: Syncope and collapse[ICD10: R55] Diagnosis: Pulmonary embolism[ICD10: I26.99] Diagnosis: Malaise and fatigue[ICD10: R53.81] Diagnosis: Other fatigue[ICD10: R53.83] Karen Calero [facility] [address] [place] [id number] CPT-4: 14638 06/17/2024 Plan of Care Planned Activity Notes Codes Status Date Visit Plan: Z91.81-V15.88 At hig h risk for falls F31.9-296.80 Bipolar disorder I25.10-414.00 CAD (coronary artery disease) E11.9-250.00 DM2 (diabetes mellitus, type 2) E66.1-278.00 Drug-induced obesity E78.5-272.4 HLD (hyperlipidemia) G81.90-342.90 Hemiplegia Z95.5-V45.82 H/O heart artery stent M10.9-274.9 Gout R54-797 Frailty I10-401.9 HTN (hypertension) Z87.898-V15.89 Hx of syncope E66.01-278.01 Morbid (severe) obesity due to excess calories G95.9-336.9 Spinal cord disorder R25.1-781.0 Tremors of nervous system I99.9-459.9 Vascular disease G62.9-355.9 Neuropathy R29.6-V15.88 Recurrent falls R60.0-782.3 Leg edema 06/17/2024 Patient Education: Patient Medication Summary Completed 06/17/2024 Patient Education: Hypertension Completed 06/17/2024 Patient Education: Heart Disease Completed 06/17/2024 Patient Education: Diabetes Complete d 06/17/2024 Patient Education: Obesity Completed 06/17/2024 Appointment: Karen Calero WPtel: [address] [place] [address] E180 04/02/2024 Appointment: Marivel Lloyd WPtel: [address] [place] [address] E180 12/09/2023 Appointment: Marivel Lloyd WPtel: [address] [place] [address] E180 09/24/2023 Appointment: Marivel Lloyd WPtel: [address] [place] [address] N180 06/10/2023 Appointment: Marivel Lloyd WPtel: [address] [place] [address] N180 05/15/2023 Referral: Housing Coordination Referral Initiated Referral: Pending Medical Records Information faxed MR request Order Faxed Instructions Comment Date ?? Keep all scheduled appts with providers and f/u as needed. day worker referral for housing resources Next f/u appt in 6 weeks. CALL CRISIS HOTLINE IF YOU BECOME SUICIDAL OR HOMICIDAL!!! CALL 911 OR GO TO THE NEAREST ER IF YOU FEEL LIKE HURTING YOURSELF OR ANYONE ELSE!!!! Continue current medications as prescribed. Consume a low sodium, low fat, DIABETIC heart healthy diet. Continue current level of physical activity as tolerated. Use assistive devices as instructed. ?? Safety and falls precautions ongoing. Monitor bp daily and record findings. ?? Monitor blood glucose as instructed and record findings. ?? Notify provider for any issues via appening 24 hour line. [phone]. Z91.81-V15.88 At high risk for falls F31.9-296.80 Bipolar disorder I25.10-414.00 CAD (coronary artery disease) E11.9-250.00 DM2 (diabetes mellitus, type 2) E66.1-278.00 Drug-induced obesity E78.5-272.4 HLD (hyperlipidemia) G81.90-342.90 Hemiplegia Z95.5-V45.82 H/O heart artery stent M10.9-274.9 Gout R54-797 Frailty I10-401.9 HTN (hypertension) Z87.898-V15.89 Hx of syncope E66.01-278.01 Morbid (severe) obesity due to excess calories G95.9-336.9 Spinal cord disorder R25.1-781.0 Tremors of nervous system I99.9-459.9 Vascular disease G62.9-355.9 Neuropathy R29.6-V15.88 Recurrent falls R60.0-782.3 Leg edema 06/17/2024 Medical Equipment No Medical Equipment data Health Concerns Section Concern Status Date Bi Polar- DL Active 08/18/2023 Gout, unspecified- DL Active 08/18/2023 No Related Observations Available Goals Section Goals Value Date Patient will know the approp riate diet for gout.-DL (Achieved 09/01/2023) Unknown 09/01/2023 Patient will continue to navid e anti psychotic meds as prescribed. -DL Unknown 08/18/2023 Patient will see MD for Bi-Polar on regular basi s when needed.-DL Unknown 08/18/2023 Patient will take gout medication.-DL Unknown 08/18/2023 Interventions Section Planned Intervention Status Date Patient has psychiatrist/psychologist available when needed. Active 08/18/2023 Patient will be taking gout medication as ordere d. Active 08/18/2023 Advance Directives No Advance Directive data
--- OUTSIDE RECORDS SUMMARY | 2025-02-10 22:19 | XMS_ITS | Data Portability ---
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 [email or web address] Not available 03/28/2024 12:34:49 04/26/2024 04/26/2024 25 min 15 min health promotion with DM, HTN, fall and prevention of worsening s/s with discussion of diet and need to comply with exercise. nmccallgaston Not available 04/26/2024 16:43:24 05/24/2024 05/24/2024 25 min 15 min health promotion with Pre-DM, pain management with use of prescription and over the counter topical medications and prevention of worsening s/s with discussion of diet and need to comply with exercise. nmccallgaston Not available 05/24/2024 20:44:00 06/01/2024 06/01/2024 25 min 15 min health promotion with DM, HTN and prevention of worsening s/s with discussion of diet and need to comply with exercise. [facility] Not available 07/01/2024 14:03:13 06/23/2024 06/23/2024 25 min 15 min health promotion with DM, HTN and prevention of worsening s/s with discussion of diet and need to comply with exercise. [facility] Not available 07/01/2024 14:31:36 Plan of Treatment Reminders Order Date Submit Date Provider Last Modified By Organization Details Last Modified Time Details Appointments None record ed. Lab glucos e, finger stick, blood 2023 024 [facility], [address] [place] [address], [id number], 4 15:46:30 glucos e, finger stick, blood 2023 024 [facility], [address] [place] [address], [id number], 4 15:30:04 glucos e, finger stick, blood 2023 024 [facility], [address] [place] [address], [id number], 4 20:51:21 glucos e, finger stick, blood 2023 024 [facility], [address] [place] [address], [id number], 4 16:10:09 vitami n D, 25-hyd rodrigue, total, serum 2023 024 [employer] [facility], [address] [place] [address] , [address], [place], [address], 4 09:09:50 CMP, serum or plasma 2023 024 [facility] [address] , [address], [place], [address], 4 14:16:18 CBC w/ auto diff 2023 024 [facility], [address], [address], [place], [address], 4 14:16:18 urinal ysis, dipsti ck 2023 024 [facility] Main Office, [address] [place] [address], [id number], 4 04:25:54 glucos e, finger stick, blood 2023 024 [facility], [address] [place] [address], [id number], 4 16:19:19 Referral home health referr al - Please contac t deedee remy for evalua tion and need of home health servic es. Deedee remy is in need for self care assist ance due to the follow ing condit ions:I nabili ty to provid e adequa te self care as relate d to inabil ity stand for extend ed period s of time to prepar e meals, diffic ulty with ambula tion and is in need of Physic al therap y servic es as deedee remy has had greate r than 2 falls with syncop y in the past year and ambula ady with use of a caneAc tive histor y of COPD and cardio vascul ar diseas e and will need nursin g assist ance and aid servic es.Arturo segundo, DENTAL SCHEDULING COORDINATOR-BC /Dr. Huber , [facility] ([facility]) 2023 024 [facility], [address], [address], [place], [address], 4 14:53:59 neurol ogist referr al 2023 024 Damion Ibarra ([facility]), [address], [place], [address], 4 10:43:04 diabet ic ophtha lmolog y referr al - Please contac t patien t for evalua tion of DM retina screen ing. Englis h second langua ge Thank KAT Beatty-BC /Markus Lowery [facility] 2023 024 [id number] Sandoval Payne MD, [address] [facility], [facility] [address], [place], [address], 12:56:22 diabet ic nutrit ion educat ion referr al - Please contac t patien t for nutrit ional educat ion. Patien t only eat 1 meal daily with freque nt syncop e. Patien t trigly ceride level 409 mg/[place]ila ethan KAT Beatty-VIC /[facility] 2023 024 [id number] [facility], [facility], [facility] Conference Room 2nd Level, [place], [address], Ph [phone] 4 10:43:06 Procedures None record ed. Surgeries None record ed. Imaging None record ed. Medication Orders Mirala x 17 gram/d ose oral powder 2023 024 [facility], [address], [place], [address], 4 14:31:56 Fleet Minera l Oil enema 2023 024 [facility], [address], [place], [address], 4 14:31:54 docusa te sodium 100 mg capsul e 2023 024 [facility], [address] [place], [address], 4 14:31:58 Vitami n D3 125 mcg (5,000 unit) tablet 2023 024 [facility], [address], [place], [address], 4 04:30:05 ezetim kate 10 mg tablet 2023 024 [facility], [address], [place], [address], 4 13:15:44 Patient Targets Encounter Date Encounter Id Patient Goals Patient Target Last Modified By Organization Details Last Modified Time 03/23/2024 [id number] 6 months of BMI 25 Not available Not parish ilable Not available Blood Pressure Not available Not availab le Not available 6 months of Weight Not available Not available Not available 6 months of Hemoglobin A1C <6% Not available Not available Not available 6 months of HDL > 49 Not available Not availa ble Not available TSH <4.50 MIU/L Not available Not available Not available Cholesterol, Total <200 Not available Not available Not available 1 month of Triglycerides <150 Not available Not available Not available ASCVD Risk [id number] risk of atherosclerotic cardiovascular disease: 17.7%10-year risk in a similar patient with optimal risk factors Question: 5.7% [email or web address] Not available 03/28/2024 13:04:25 04/26/2024 8516 6 months of BMI Not available Not parish ilable Not available Blood Pressure Not available Not availab le Not available Pulse bpm Not available Not available Not available Respiration Rate Not available Not avail able Not available 6 months of Weight Not available Not available Not available 05/24/2024 8820 6 months of BMI 25 Not available Not parish ilable Not available assisted goal o f Blood Pressure Not available Not available Not available 6 months of Weight Not available Not available Not available ocean transportation intermediary goal o f HDL Not available Not available Not available assisted goal o f Cholesterol, Total Not available Not available Not available assisted goal o f Triglycerides Not available Not available Not available 06/01/2024 8875 Next visit of BMI 25 Not available Not a vailable Not available Blood Pressure Not available Not availab le Not available Next visit of Weight Not available Not available Not available assisted goal o f Hemoglobin A1C Not available Not available Not available assisted goal o f Glucose, Random Not available Not available Not available assisted goal o f HDL Not available Not available Not available ocean transportation intermediary goal o f Cholesterol, Total Not available Not available Not available ocean transportation intermediary goal o f Triglycerides Not available Not available Not available 06/23/2024 8987 Next visit of BMI 25 Not available Not a vailable Not available Blood Pressure Not available Not availab le Not available Next visit of Weight Not available Not available Not available [place] of Hemoglobin A1C Not available Not available Not available [place] of HDL Not available Not availab le Not available [place] of TSH Not available Not availab le Not available Cholesterol, Total Not available Not available Not available Next visit of Triglycerides Not available Not available Not available Cholesterol, LDL Not available Not avail able Not available Patient Instructions Encounter Date Encounter Id Patient Instructions Last Modified By Organization Details Last Modified Time 03/23/2024 [id number] high cholesterol : care instructions nmccallgaston Not available 03/28/2024 13:15:36 Cholesterol/High Triglyceride level: Please follow a low cholesterol diet. Increase fresh vegetables, water intake and natural vegetable fat. Exercise 3-5 days per week for at least 30 min per day. Take your Atorvastatin as directed daily. Adding ezetimibe 10 mg tablet 1 tablet every day as directed for 90 days, for Triglyceride level of 409. Will continue to monitor your cholesterol level. Dizziness/syncope: Current Appointment schedule: Neurology for evaluation. 04/05/2024 11:00 AM EDT Office Visit [facility] [address], [address] [place] [address], Damion Ibarra MD [address] [facility], [address], [place] [address], Diabetes: Monitor A1c level 6.3% is observed in control with current medications. Educated patient to eat at least 3 meals per day and continue current medications. Monitor your blood glucose and return to the office with your glucose log. Check your blood glucose and if your blood sugar is between 55-69 mg/dL, raise it by following the 15-15 rule: have 15 grams of carbs (small orange) and check your blood sugar after 15 minutes. If it's still below your target range, eat a small meal and recheck your blood glucose. Repeat these steps until it's in your target range is at least 80-90 or you feel less symptoms. Diabetic Jointer Operator Referral: [facility] [address] [place] [address] Ph. [phone] Diabetic Vision screening referral: Sandoval Payne MD [address] [place] [address] Ph. nmccallgaston Not available 03/28/2024 13:56:58 04/26/2024 8516 blood pressure check* nmccallgaston Not available 04/26/2024 16:10:05 learning about type 2 diabetes nmccallgaston Not available 04/26/2024 16:48:32 type 2 diabetes: care instructions nmccallgaston Not available 04/26/2024 16:48:33 body mass index: care instructions nmccallgaston Not available 04/26/2024 17:01:39 learning about healthy weight nmccallgaston Not available 04/26/2024 17:01:39 weight check* nmccallgaston Not availabl e 04/26/2024 17:01:39 Diabetes/Diet/Di zz iness: Your past dizziness maybe related to you not eating well. Continue diabetic medication as directed. Begin to eat as directed and follow up with Diabetic Jointer Operator as scheduled. Return to to the office with your blood glucose log. For low blood sugar between 55-69 mg/dL, raise it by following the 15-15 rule: have 15 grams of carbs and check your blood sugar after 15 minutes. If it's still below your target range, have another serving. Repeat these steps until it's in your target range. Hypertension: Take medication and monitor BP. Report if BP is greater than 140/90 or less then 100/60 continue current medication. will consider dose adjustment based on abnormal findings or onset of s/s. Report s/s of stroke, dizziness or weakness with any upper body pain or burning with women. Go to ER if have onset of chest pain. eileen Not available 04/26/2024 16:57:54 05/24/2024 8820 type 2 diabetes: care instructions eileen Not available 05/24/2024 20:51:11 transition of ca re 7 to 14 days follow-up* [email or web address] Not available 06/09/2024 14:53:41 Weight loss diet : Follow a low carbohydrate diet, increase water and 2-3 servings of fresh/frozen vegetables in daily diet. Patient is advised to drink at least 8-10 glasses of water daily. Diabetes: Your blood glucose level is elevated 7.9 with previous medications. Prior authorization completed in request for Ozempic and reordered Farxiga but the tier level is found at 6 for both medications. Please contact the office if you cannot continue or start these medications. Continue lispro and we will discuss other medications based on you financial ability and A1c from today's labs. Muscular/Skeletal Pain Start taking gabapentin 600 mg 3 times daily for 4-6 days. Consider use of topical analgesics such as [place]. If use of OTC is not working please return to the office to discuss taking a medication muscle/skeletal pain. Exercise your back with stretching daily. Follow up with orthopedic as scheduled and inform them of new medications provided. Will monitor for orthopedic reports prior to next visit. When should you call for help? Call your doctor now or seek immediate medical care if: You have new or worsening numbness in your legs. You have new or worsening weakness in your legs. (This could make it hard to stand up.) You lose control of your bladder or bowels. Watch closely for changes in your health, and be sure to contact your doctor if: You have a fever, lose weight, or don't feel well. You do not get better as expected. Home Health Request: Please contact patient for evaluation and need of home health services. Patient is in need for self care assistance due to the following conditions: Inability to provide adequate self care as related to inability stand for extended periods of time to prepare meals, difficulty with ambulation and is in need of Physical therapy services as patient has had greater than 2 falls in the past year and ambulates with use of a cane Active history of COPD and cardiovascular disease and will need nursing assistance and aid services. Based on services will determine need for medications. [facility] Not [facility] 05/24/2024 20:53:46 06/01/2024 8875 diabetes and preventing falls: care instructions eileen Not available 07/02/2024 15:38:12 preventing falls : care instructions zainnaomi Not available 07/02/2024 15:38:12 Diabetes: Monito r dietary and medication intake. Not eating can cause your blood surgars to be too low and worsen your dizziness. Please eat more freqently. For low blood sugar between 55-69 mg/dL, raise it by following the 15-15 rule: have 15 grams of carbs and check your blood sugar after 15 minutes. If it's still below your target range, have another serving. Repeat these steps until it's in your target range. High blood pressure: Take medication and monitor BP. Report if BP is greater than 140/90 or less then 100/60 continue current medication. will consider dose adjustment based on abnormal findings or onset of s/s. Report s/s of stroke, dizziness or weakness with any upper body pain or burning with women. Go to ER if have onset of chest pain. Home health: Patient instructed to continue with home health and will discuss need for regular home visit moving forward. Fall prevention: See handouts. How can you care for yourself at home? Taking care of yourself Exercise regularly to improve your strength, muscle tone, and balance. Walk if you can. Swimming may be a good choice if you cannot walk easily. Have your vision and hearing checked each year or any time you notice a change. If you have trouble seeing and hearing, you might not be able to avoid objects and could lose your balance. Know the side effects of the medicines you take. Ask your doctor or pharmacist whether the medicines you take can affect your balance. Sleeping pills or sedatives can affect your balance. Limit the amount of alcohol you drink. Alcohol can impair your balance and other senses. Ask your doctor whether calluses or corns on your feet need to be removed. If you wear loose-fitting shoes because of calluses or corns, you can lose your balance and fall. Talk to your doctor if you have numbness in your feet. You may get dizzy if you do not drink enough water. To prevent dehydration, drink plenty of fluids. Choose water and other clear liquids. If you have kidney, heart, or liver disease and have to limit fluids, talk with your doctor before you increase the amount of fluids you drink. Preventing falls at home Remove raised doorway thresholds, throw rugs, and clutter. Repair loose carpet or raised areas in the floor. Move furniture and electrical cords to keep them out of walking paths. Use nonskid floor wax, and wipe up spills right away, especially on ceramic tile floors. If you use a walker or cane, put rubber tips on it. If you use crutches, clean the bottoms of them regularly with an abrasive pad, such as steel wool. Keep your house well lit, especially stairways, porches, and outside walkways. Use night-lights in areas such as hallways and bathrooms. Add extra light switches or use remote switches (such as switches that go on or off when you clap your hands) to make it easier to turn lights on if you have to get up during the night. Install sturdy handrails on stairways. Move items in your cabinets so that the things you use a lot are on the lower shelves (about waist level). Keep a cordless phone and a flashlight with new batteries by your bed. If possible, put a phone in each of the main rooms of your house, or carry a cell phone in case you fall and cannot reach a phone. Or, you can wear a device around your neck or wrist. You push a button that sends a signal for help. Wear low-heeled shoes that fit well and give your feet good support. Use footwear with nonskid soles. Check the heels and soles of your shoes for wear. Repair or replace worn heels or soles. Do not wear socks without shoes on wood floors. Walk on the grass when the sidewalks are slippery. If you live in an area that gets snow and ice in the winter, sprinkle salt on slippery steps and sidewalks. Or ask a family member or friend to do this for you. [facility] Not available 07/02/2024 15:38:11 Medication and dietary compliance [facility] Not available 07/02/2024 15:31:18 06/23/2024 [id number] constipation: ca re instructions [facility] Not available 07/01/2024 14:35:07 learning about type 2 diabetes [facility] Not available 06/23/2024 14:31:44 type 2 diabetes: care instructions [facility] Not available 06/23/2024 14:31:44 dizziness: care instructions [facility] Not available 06/23/2024 14:31:44 High Blood Pressure: Continue monitoring BP report BP greater than 140/90 or less then 100/60 continue medication will consider dose adjustment based on abnormal findings or onset of s/s. Fall prevention: Report any new falls and cause of your fall. Please report any head injuries. How can you care for yourself at home? Taking care of yourself Exercise regularly to improve your strength, muscle tone, and balance. Walk if you can. Swimming may be a good choice if you cannot walk easily. Have your vision and hearing checked each year or any time you notice a change. If you have trouble seeing and hearing, you might not be able to avoid objects and could lose your balance. Know the side effects of the medicines you take. Ask your doctor or pharmacist whether the medicines you take can affect your balance. Sleeping pills or sedatives can affect your balance. Limit the amount of alcohol you drink. Alcohol can impair your balance and other senses. Ask your doctor whether calluses or corns on your feet need to be removed. If you wear loose-fitting shoes because of calluses or corns, you can lose your balance and fall. Talk to your doctor if you have numbness in your feet. You may get dizzy if you do not drink enough water. To prevent dehydration, drink plenty of fluids. Choose water and other clear liquids. If you have kidney, heart, or liver disease and have to limit fluids, talk with your doctor before you increase the amount of fluids you drink. Preventing falls at home Remove raised doorway thresholds, throw rugs, and clutter. Repair loose carpet or raised areas in the floor. Move furniture and electrical cords to keep them out of walking paths. Use nonskid floor wax, and wipe up spills right away, especially on ceramic tile floors. If you use a walker or cane, put rubber tips on it. If you use crutches, clean the bottoms of them regularly with an abrasive pad, such as steel wool. Keep your house well lit, especially stairways, porches, and outside walkways. Use night-lights in areas such as hallways and bathrooms. Add extra light switches or use remote switches (such as switches that go on or off when you clap your hands) to make it easier to turn lights on if you have to get up during the night. Install sturdy handrails on stairways. Move items in your cabinets so that the things you use a lot are on the lower shelves (about waist level). Keep a cordless phone and a flashlight with new batteries by your bed. If possible, put a phone in each of the main rooms of your house, or carry a cell phone in case you fall and cannot reach a phone. Or, you can wear a device around your neck or wrist. You push a button that sends a signal for help. Wear low-heeled shoes that fit well and give your feet good support. Use footwear with nonskid soles. Check the heels and soles of your shoes for wear. Repair or replace worn heels or soles. Do not wear socks without shoes on wood floors. Walk on the grass when the sidewalks are slippery. If you live in an area that gets snow and ice in the winter, sprinkle salt on slippery steps and sidewalks. Or ask a family member or friend to do this for you. Diabetes: Monitor A1c level is mildly elevated 6.3% and observed in control with current medications. Continue to follow up with your police detention attendant and keep a blood glucose log. For low blood sugar between 55-69 mg/dL, raise it by following the 15-15 rule: have 15 grams of carbs and check your blood sugar after 15 minutes. If it's still below your target range, have another serving. Repeat these steps until it's in your target range. Constipation: Increase vegetables, walk after meals and drink warm to aid with digestion and improvement of constipation. Please inform your police detention attendant of your bile changes for monitoring. If you have worsening symptoms occur please remember to improve your symptoms by assessing your lifestyle eating habits. Weight loss 10 lbs, eating evening meal greater than 3-4 hours before bedtime. Limiting acidic and greasy foods to early meal times to allow for digestion. Medication: Start Miralax 17 gram/dose oral powder 1 capful or pkt/day; Info: dissolve in 4-8 oz of liquid; may take 1-3 days to produce BM; use shortest effective tx duration Start Fleet Mineral Oil enema 1 mL as needed at bedtime for 15 days, for constipation Start docusate sodium 100 mg capsule 1 capsule every day as directed for 30 days, for constipation nmccnaomi Not available 07/02/2024 15:49:09 Reason for Referral Neurologist Referral for Fal ls Referring Physician: Renetta Griggs, [facility], Encounter Date: 03/23/2024 Diabetic Ophthalmology Refer ral for Hypertension in chronic kidney disease stage 2 due to type 2 diabetes mellitus diabetic vision screening and hypertension Please contact patient for evaluation of DM retina screening. Kazakh second language Thank ANGIE Villa[facility] Referring Physician: Renetta Griggs, [facility], Encounter Date: 03/23/2024 Diabetic Nutrition Education Referral for Hypertension in chronic kidney disease stage 2 due to type 2 diabetes mellitus insufficient dietary intake, syncopye and elevated triglyceride. Please contact patient for nutritional education. Patient only eat 1 meal daily with frequent syncope. Patient triglyceride level 409 mg/dlThank ANGIE Warren/Dr. Mayo [facility] Referring Physician: Renetta Griggs [facility], Encounter Date: 03/23/2024 Home Health Referral for Tra nsition of care need home health (medication reconciliation, fall precosions and need of follow up referral [facility] Please contact patient for evaluation and need of home health services. Patient is in need for self care assistance due to the following conditions:Inability to provide adequate self care as related to inability stand for extended periods of time to prepare meals, difficulty with ambulation and is in need of Physical therapy services as patient has had greater than 2 falls with syncopy in the past year and ambulates with use of a caneActive history of COPD and cardiovascular disease and will need nursing assistance and aid services.Thank Brianna Griggs, [facility]/Dr. Huber, [facility] ([facility] be [facility]) Referring Physician: Renetta Griggs, Family Medicine, Encounter Date: 05/24/2024 Results Created Date Observation Date Name Description Value Unit Range Abnormal Flag Note LastModifiedBy Organization Detail LastModifiedTime 03/23/20 24 03/24/2024 COMPR EHENS HASMUKH METAB OLIC PANEL glucose 121 mg/dL 65-99 high Fasti ng refer ence inter brenda For someo ne witho ut known diabe ady, a gluco se value betwe en 100 and 125 mg/dL is consi stent with predi abete s and shoul d be confi rmed with a follo w-up test. Not Available [facility] [address] [place], [address], 03/24/2024 09:09:49 03/23/20 24 03/24/2024 COMPR EHENS HASMUKH METAB OLIC PANEL urea nitrogen (BUN) 18 mg/dL 7-25 normal Not Available [facility] [address] [place], [address], 03/24/2024 09:09:49 03/23/20 24 03/24/2024 COMPR EHENS HASMUKH METAB OLIC PANEL creatinine 1.13 mg/dL 0.70-1 .35 normal Not Available [facility] [address] [place], [address], 03/24/2024 09:09:49 03/23/20 24 03/24/2024 COMPR EHENS HASMUKH METAB OLIC PANEL eGFR 74 mL/mi n/1.7 3m2 > or = 60 normal Not Available [facility] [address] [place], [address], 03/24/2024 09:09:49 03/23/20 24 03/24/2024 COMPR EHENS HASMUKH METAB OLIC PANEL BUN/creatini ne ratio SEE NOTE: (calc ) 6-22 Not Repor ti: BUN and Creat inine are withi n refer ence range . Not Available [facility] [address] [place], [address], 03/24/2024 09:09:49 03/23/20 24 03/24/2024 COMPR EHENS HASMUKH METAB OLIC PANEL sodium 137 mmol/ L 135-14 6 normal Not Available [facility] [address] [place], [address], 03/24/2024 09:09:49 03/23/20 24 03/24/2024 COMPR EHENS HASMUKH METAB OLIC PANEL potassium 5.0 mmol/ L 3.5-5. 3 normal Not Available [facility] [address] [place], [address], 03/24/2024 09:09:49 03/23/20 24 03/24/2024 COMPR EHENS HASMUKH METAB OLIC PANEL chloride 102 mmol/ L 98-110 normal Not Available [facility] [address] [place], [address], 03/24/2024 09:09:49 03/23/20 24 03/24/2024 COMPR EHENS HASMUKH METAB OLIC PANEL carbon dioxide 24 mmol/ L 20-32 normal Not Available [facility] [address] [place], [address], 03/24/2024 09:09:49 03/23/20 24 03/24/2024 COMPR EHENS HASMUKH METAB OLIC PANEL calcium 9.7 mg/dL 8.6-10 .3 normal Not Available [facility] [address] [place], [address], 03/24/2024 09:09:49 03/23/20 24 03/24/2024 COMPR EHENS HASMUKH METAB OLIC PANEL protein, total 6.7 g/dL 6.1-8. 1 normal Not Available [facility] [address] [place] [address], [address], 03/24/2024 09:09:49 03/23/20 24 03/24/2024 COMPR EHENS HASMUKH METAB OLIC PANEL albumin 4.4 g/dL 3.6-5. 1 normal Not Available [employer] [address] [place], [address], 03/24/2024 09:09:49 03/23/20 24 03/24/2024 COMPR EHENS HASMUKH METAB OLIC PANEL globulin 2.3 g/dL_ (calc ) 1.9-3. 7 normal Not Available [facility] [address] [place], [address], 03/24/2024 09:09:49 03/23/20 24 03/24/2024 COMPR EHENS HASMUKH METAB OLIC PANEL albumin/glob ulin ratio 1.9 (calc ) 1.0-2. 5 normal Not Available [facility] [address] [place] [address], [address], 03/24/2024 09:09:49 03/23/20 24 03/24/2024 COMPR EHENS HASMUKH METAB OLIC PANEL bilirubin, total 0.5 mg/dL 0.2-1. 2 normal Not Available [employer] [address] [place] [address], [address], 03/24/2024 09:09:49 03/23/20 24 03/24/2024 COMPR EHENS HASMUKH METAB OLIC PANEL alkaline phosphatase 50 U/L 35-144 normal Not Available [facility] [employer] [facility] [address] [place], [address], 03/24/2024 09:09:49 03/23/20 24 03/24/2024 COMPR EHENS HASMUKH METAB OLIC PANEL AST 12 U/L 10-35 normal Not Available [employer] [facility] [address] [place] [address], [address], 03/24/2024 09:09:49 03/23/20 24 03/24/2024 COMPR EHENS HASMUKH METAB OLIC PANEL ALT 10 U/L 9-46 normal Not Available [facility] [address] [place], [address], 03/24/2024 09:09:49 03/23/20 24 03/24/2024 CBC (INCL UDES DIFF/ PLT) white blood cell count 5.2 thous and/u L 3.8-10 .8 normal Not Available [facility] [address] [place], [address], 03/24/2024 09:09:50 03/23/20 24 03/24/2024 CBC (INCL UDES DIFF/ PLT) red blood cell count 4.32 lupillo on/uL 4.20-5 .80 normal Not Available [facility] [address] [place] [address], [address], 03/24/2024 09:09:50 03/23/20 24 03/24/2024 CBC (INCL UDES DIFF/ PLT) hemoglobin 12.8 g/dL 13.2-1 7.1 low Not Available [employer] [facility] [address] [place], [address], 03/24/2024 09:09:50 03/23/20 24 03/24/2024 CBC (INCL UDES DIFF/ PLT) hematocrit 36.6 % 38.5-5 0.0 low Not Available [employer] [facility] [address] [place] [address], [address], 03/24/2024 09:09:50 03/23/20 24 03/24/2024 CBC (INCL UDES DIFF/ PLT) MCV 84.7 fL 80.0-1 00.0 normal Not Available [employer] [facility] [address] [place] [address], [address], 03/24/2024 09:09:50 03/23/20 24 03/24/2024 CBC (INCL UDES DIFF/ PLT) MCH 29.6 pg 27.0-3 3.0 normal Not Available [facility] [address] [place] [address], [address], 03/24/2024 09:09:50 03/23/20 24 03/24/2024 CBC (INCL UDES DIFF/ PLT) MCHC 35.0 g/dL 32.0-3 6.0 normal Not Available [facility] [address] [place], [address], 03/24/2024 09:09:50 03/23/20 24 03/24/2024 CBC (INCL UDES DIFF/ PLT) RDW 17.3 % 11.0-1 5.0 high Not Available [facility] [address] [place] [address], [address], 03/24/2024 09:09:50 03/23/20 24 03/24/2024 CBC (INCL UDES DIFF/ PLT) platelet count 204 thous and/u L 140-40 0 normal Not Available [facility] [address] [place] [address], [address], 03/24/2024 09:09:50 03/23/20 24 03/24/2024 CBC (INCL UDES DIFF/ PLT) MPV 9.0 fL 7.5-12 .5 normal Not Available [facility] [address] [place] [address], [address], 03/24/2024 09:09:50 03/23/20 24 03/24/2024 CBC (INCL UDES DIFF/ PLT) absolute neutrophils 2122 cells /uL 1500-7 800 normal Not Available [facility] [address] [place] [address], [address], 03/24/2024 09:09:50 03/23/20 24 03/24/2024 CBC (INCL UDES DIFF/ PLT) absolute lymphocytes 2012 cells /uL 850-39 00 normal Not Available [facility] [address] [place] [address], [address], 03/24/2024 09:09:50 03/23/20 24 03/24/2024 CBC (INCL UDES DIFF/ PLT) absolute monocytes 619 cells /uL 200-95 0 normal Not Available [facility] [address] [place] [address], [address], 03/24/2024 09:09:50 03/23/20 24 03/24/2024 CBC (INCL UDES DIFF/ PLT) absolute eosinophils 390 cells /uL 15-500 normal Not Available [facility] [address] [place] [address], [address], 03/24/2024 09:09:50 03/23/20 24 03/24/2024 CBC (INCL UDES DIFF/ PLT) absolute basophils 57 cells /uL 0-200 normal Not Available [facility] [address] [place] [address], [address], 03/24/2024 09:09:50 03/23/20 24 03/24/2024 CBC (INCL UDES DIFF/ PLT) neutrophils 40.8 % normal Not Available [facility] [address] [place] [address], [address], 03/24/2024 09:09:50 03/23/20 24 03/24/2024 CBC (INCL UDES DIFF/ PLT) lymphocytes 38.7 % normal Not Available [facility] [address] [place] [address], [address], 03/24/2024 09:09:50 03/23/20 24 03/24/2024 CBC (INCL UDES DIFF/ PLT) monocytes 11.9 % normal Not Available [facility] [address] [place] [address], [address], 03/24/2024 09:09:50 03/23/20 24 03/24/2024 CBC (INCL UDES DIFF/ PLT) eosinophils 7.5 % normal Not Available [facility] [address] [place] [address], [address], 03/24/2024 09:09:50 03/23/20 24 03/24/2024 CBC (INCL UDES DIFF/ PLT) basophils 1.1 % normal Not Available [facility] [address] [place], [address], 03/24/2024 09:09:50 03/23/20 24 03/24/2024 VITAM IN D,25- OH,TO SOHAM,I A vitamin D,25-oh,tota l,ia 27 NG/mL 30-100 low Vitam in D Statu s 25-OH Vitam in D: Defic iency : <20 ng/mL Insuf ficie ncy: 20 - 29 ng/mL Optim al: > or = 30 ng/mL For 25-OH Vitam in D testi ng on patie nts on D2-dong pplem entat ion and patie nts for whom quant itati on of D2 and D3 fract ions is requi red, the [facility] e[facility](TM ) 25-OH VIT D, (D2,D 3), LC/MS /MS is recom nhan d: order code 58327 (cj ents >2yrs ). See Note 1 Note 1 For addit ional infor liban miller e refer to http: //[facility] [place].Que stDia gnost ics.c om/fa q/FAQ 199 (This link is being provi ded for infor aubrey son/ educrashawn gerard purpo ses only. ) Not Available [facility] [address] [place], [address], 03/24/2024 09:09:50 03/23/20 24 03/23/2024 gluco se, finge rstic k, blood Blood Glucose: mg/dl 160 Not Available Main [facility] [address] [place], [address], 03/23/2024 15:32:35 03/24/20 24 03/24/2024 urina lysis , dipst ick Leukocytes Negati ve Not Available Main Office [address] [place], [address], 03/24/2024 09:28:06 03/24/20 24 03/24/2024 urina lysis , dipst ick Nitrite negati ve Not Available Main Office [address] [place] [address], [address], 03/24/2024 09:28:06 03/24/20 24 03/24/2024 urina lysis , dipst ick Urobilinogen 4 Not Available Main Office [address] [place] [address], [address], 03/24/2024 09:28:06 03/24/20 24 03/24/2024 urina lysis , dipst ick Protein Negati ve Not Available Main Office [address] [place] [address], [address], 03/24/2024 09:28:06 03/24/20 24 03/24/2024 urina lysis , dipst ick pH 6.5 Not Available Main Offic e [address] [place] [address], [address], 03/24/2024 09:28:06 03/24/20 24 03/24/2024 urina lysis , dipst ick Blood Negati ve Not Available Main Office [address] [place] [address], [address], 03/24/2024 09:28:06 03/24/20 24 03/24/2024 urina lysis , dipst ick Specific Tofte 1.015 Not Available Main O ffice [address] [place] [address], [address], 03/24/2024 09:28:06 03/24/20 24 03/24/2024 urina lysis , dipst ick Ketone Negati ve Not Available Main Office [address] [place] [address], [address], 03/24/2024 09:28:06 03/24/20 24 03/24/2024 urina lysis , dipst ick Bilirubin Negati ve Not Available Main Office [address] [place] [address], [address], 03/24/2024 09:28:06 03/24/20 24 03/24/2024 urina lysis , dipst ick Glucose Negati ve Not Available Main Office [address] [place] [address], [address], 03/24/2024 09:28:06 03/24/20 24 03/24/2024 urina lysis , dipst ick Appearance Slight ly Cloudy Not Available Main Office [address] [place] [address], [address], 03/24/2024 09:28:06 03/24/20 24 03/24/2024 urina lysis , dipst ick Color Yellow Not Available Main Offic e [address] [place] [address], [address], 03/24/2024 09:28:06 04/26/20 24 04/26/2024 weigh t check * Weight Measure abnorm al Not Available Main Office [address] [place] [address], [address], 04/26/2024 16:59:50 04/26/20 24 04/26/2024 weigh t check * Weight/BMI 190.8l bs/38. 5% Not Available Main Office [address] [place] [address], [address], 04/26/2024 16:59:50 04/26/20 24 04/26/2024 blood press ure check * Unknown Analyte 122 Not Available Main O ffice [address] [place] [address], [address], 04/26/2024 15:51:31 04/26/20 24 04/26/2024 blood press ure check * Unknown Analyte 60 Not Available Main O ffice [address] [place] [address], [address], 04/26/2024 15:51:31 04/26/20 24 04/26/2024 gluco se, finge rstic k, blood Blood Glucose: mg/dl 145 Not Available Main O [facility]ice [address] [place], [address], 04/26/2024 15:21:57 05/24/20 24 05/24/2024 gluco se, finge rstic k, blood Blood Glucose: mg/dl 161 Not Available Main O [facility]ice [address] [place], [address], 05/24/2024 15:27:34 06/01/20 24 06/01/2024 gluco se, finge rstic k, blood Blood Glucose: mg/dl 137 Not Available Main O ffice [address] [place] [address], [address], 06/01/2024 15:19:57 07/02/20 24 07/02/2024 gluco se, finge rstic k, blood Blood Glucose: mg/dl 122 Not Available Main O ffice [address] [place] [address], [address], 07/02/2024 15:44:34 Result Notes None recorded. Problems Name Problem SNOMED Code Status Onset Date Resolution Date Notes Provider Name and Address Organization Details Recorded Time Type 2 diabetes mellitus 67366920 Active 2022 Renetta slaughter [address], [address] , [employer] 21:55:00 Dental abscess 101613154 Completed 202209/01/2023 Removal Reason: Resolved Renetta slaughter [address], [address] , [employer], [employer] 07:39:25 Morbid obesity 802213093 Completed 202212/22/2023 Removal Reason: improved Renetta slaughter, [address], [address] , [facility] 4 09:22:18 Hyperlip idemia screenin g Active 2022 Renetta Zabala-Lynn slaughter, [address], [address] , [facility] 3 05:04:07 Cerebral arteriov enous malforma tion 558262661 Active 2020 Renetta Zabala-Lynn slaughter, [address], [address] [place] [address] , [facility] 3 05:01:31 Phimosis 107493448 Active 2020 Renetta Zabala-Lynn slaughter, [address], [address] [place] [address] , [facility] 3 05:02:07 History of cocaine abuse 91259508003 9106 Active 2019 Renetta slaughter, [address], [address] , [facility] 3 05:03:25 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 17615559932 9102 Active 2015 Renetta slaughter, [address], [address] , [facility] 3 05:07:31 Recurren t major depressi on 36955556 Active 2022 Renetta Zabala-Gas sukhjinder, [address], [address] , [facility] 3 05:21:40 Anxiety attack 083018292 Active 2022 Renetta Zabala-Gas sukhjinder, [address], [address] , [employer], [facility] 3 05:23:11 Low back pain 871385650 Active 2022 Renetta Zabala-Lynn slaughter, [address], [address] , [employer], [facility] 3 21:41:30 Dental caries 75017949 Active 2022 Renetta Zabala-Gas ton, [address], [address] , [employer], [facility] 3 11:31:03 Atopic dermatit is 67308917 Active 2022 Renetta Zabala-Gas sukhjinder, [address], [address] , [employer], [facility] 3 11:31:36 Essentia l hyperten yvrose 37555005 Completed 202212/22/2023 Removal Reason: duplicat ion Renetta slaughter, [address], [address] , [employer], [facility] 4 09:23:02 Hyperlip idemia 49020478 Active 2022 Renetta Zabala-Gas sukhjinder, [address], [address] , [employer], [facility] 3 06:53:36 Congesti ve heart failure 29654016 Completed 202212/22/2023 Removal Reason: duplicat ion Renetta Zabala-Gas ton, [address], [address] , [employer], [facility] 4 09:27:01 Angina co-occur rent and due to coronary arterios clerosis 71812849416 938404 Active 2022 Renetta Loboall-Gas ton, [address], [address] , [facility] [employer] [facility] 3 16:07:15 Chronic kidney disease 693141473 Active 2022 Renetta slaughter, [address], [address] , [facility] [employer] [facility] 3 20:49:26 Bleeding from nose 874884299 Completed 202212/22/2023 Removal Reason: resolved Renetta slaughter, [address], [address] , [employer] [facility] 4 09:22:34 Pain of bilatera l knee joints 71627104396 4104 Active 2023 Renetta slaughter, [address], [address] , [facility] [employer] [facility] 4 16:45:25 Benign hyperten sive heart disease without congesti ve heart failure 67679558 Active 2023 Renetta slaughter, [address], [address] , [facility] [employer] [facility] 4 09:25:43 Depressi ve disorder 48922581 Active 2023 Renetta slaughter, [address], [address] , [facility] [employer], [facility] 4 09:25:36 Dizzines s 840315480 Active 2023 Chastity melvin, [facility] 4 14:08:11 Tremor 35285257 Active 2023 Chastity melvin, [facility] 4 14:11:58 Falls 054376478 Active 2023 Renetta slaughter, [address], [address] , [employer], [facility] 4 17:21:51 Chronic kidney disease due to type 2 diabetes mellitus 50734262826 8 Active 2023 Renetta slaughter, [address], [address] , [employer], [facility] 4 18:30:26 Vitamin D deficien cy 25112965 Active 2023 Renetta Zabala-Lynn slaughter, [address], [address] , [employer], [employer] 4 12:38:05 Body mass index 30+ - obesity 216804634 Active 2023 Renetta Zabala-Lynn slaughter, [address], [address] , [employer], [employer] 4 17:00:47 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 Medical Equipment None Reported. Allergies No known drug allergies Medications Name Sig Start Date Stop Date Status Note LastModified by Organization Details LastModified Time amoxicill in 500 mg capsule TAKE 1 CAPSULE BY MOUTH THREE TIMES DAILY UNTIL GONE 06/18 completed Not Available Not Available Not Available Miralax 17 gram/dose oral powder 1 capful or pkt/day; Info: dissolve in 4-8 oz of liquid; may take 1-3 days to produce BM; use shortest effectiv e tx duration 2023 active Not Available Not Available Not Avai lable atorvasta tin 40 mg tablet TAKE 1 TABLET BY MOUTH ONCE DAILY active Not Available Not Available No t Available metformin 500 mg tablet TAKE 2 TABLETS BY MOUTH TWICE DAILY active Not Available Not Available No t Available promethaz ine-DM 6.25 mg-15 mg/5 mL oral syrup TAKE 5 ML ORALLY EVERY 6 HOURS NEEDED active Not Available Not Available No t Available gabapenti n 600 mg tablet TAKE 1 TABLET BY MOUTH TWICE DAILY active Not Available Not Available No t Available benztropi ne 0.5 mg tablet TAKE 1 TABLET BY MOUTH ONCE DAILY AT NIGHT active Not Available Not Available No t Available torsemide 20 mg tablet TAKE 1 TABLET BY MOUTH ONCE DAILY STOP FUROSEMI DE active Not Available Not Available No t Available quetiapin e 300 mg tablet TAKE 1 TABLET BY MOUTH EVERY DAY AT BEDTIME active Not Available Not Available No t Available divalproe x 250 mg tablet,de layed release TAKE 1 TABLET BY MOUTH TWICE DAILY active Not Available Not Available No t Available nitroglyc herman 0.3 mg sublingua l tablet DISSOLVE ONE TABLET UNDER THE TONGUE EVERY 5 MINUTES NEEDED FOR CHEST PAIN. DO NOT EXCEED A TOTAL OF 3 DOSES IN 15 MINUTES active Not Available Not Available No t Available ibuprofen 800 mg tablet TAKE 1 TABLET BY MOUTH EVERY 8 HOURS WITH FOOD OR MILK NEEDED active Not Available Not Available No t Available Lidocaine Viscous 2 % mucosal solution PLEASE SEE ATTACHED FOR DETAILED DIRECTIO NS active Not Available Not Available No t Available amoxicill in 250 mg-potass ium clavulana te 62.5 mg/5 mL oral suspensio n TAKE 10ML (CC) BY MOUTH TWICE DAILY FOR 5 DAYS. 01/20 completed Not Available Not Available Not Available hydrocodo ne 5 mg-acetam inophen 325 mg tablet TAKE 1 TABLET BY MOUTH EVERY 6 HOURS NEEDED FOR PAIN 07/07 completed Not Available Not Available Not Available lisinopri l 20 mg tablet TAKE 1 TABLET BY MOUTH EVERY DAY active Not Available Not Available No t Available isosorbid e mononitra te ER 30 mg tablet,ex tended release 24 hr TAKE 1 TABLET BY MOUTH ONCE DAILY active Not Available Not Available No t Available quetiapin e 200 mg tablet TAKE 1 TABLET BY MOUTH ONCE DAILY AT NIGHT FOR PSYCHOSI S AND SLEEP 01/20 completed Pharmacy stated that he is taking 400mg Not Available Not Available Not Available olanzapin e 5 mg tablet TAKE 1 TABLET BY MOUTH ONCE DAILY AT NIGHT DIRECTED 01/20 completed Pharmacy stated that he is taking 7.5mg Not Available Not Available Not Available clopidogr el 75 mg tablet TAKE 1 TABLET BY MOUTH ONCE DAILY active Not Available Not Available No t Available allopurin ol 100 mg tablet TAKE 1 TABLET BY MOUTH ONCE DAILY active Not Available Not Available No t Available divalproe x 500 mg tablet,de layed release TAKE 1 TABLET BY MOUTH TWICE DAILY. TAKE 500MG AND 250MG, A TOTAL OF 750MG, TWICE DAILY FOR MOOD active Not Available Not Available No t Available ciproflox acin 500 mg tablet TAKE 1 TABLET BY MOUTH IN THE MORNING AND 1 AT BEDTIME 06/18 completed Not Available Not Available Not Available olanzapin e 7.5 mg tablet TAKE 1 TABLET BY MOUTH ONCE DAILY AT NIGHT DIRECTED active Not Available Not Available No t Available aspirin 81 mg tablet,de layed release TAKE 1 TABLET BY MOUTH ONCE DAILY active Not Available Not Available No t Available tramadol 50 mg tablet TAKE 1 TABLET BY MOUTH TWICE DAILY NEEDED active Not Available Not Available No t Available risperido ne 2 mg tablet TAKE 1 TABLET BY MOUTH TWICE DAILY FOR PSYCHOSI S active Not Available Not Available No t Available isosorbid e mononitra te ER 60 mg tablet,ex tended release 24 hr TAKE 1 TABLET BY MOUTH ONCE DAILY 01/20 completed Pharmacy stated that he is taking 30mg Not Available Not Available Not Available terbinafi ne HCl 250 mg tablet TAKE 1 TABLET BY MOUTH ONCE DAILY 01/20 completed Pharmacy stated that he is not taking medicati on Not Available Not Available Not Available citalopra m 20 mg tablet TAKE 1 TABLET BY MOUTH ONCE DAILY active Not Available Not Available No t Available trazodone 100 mg tablet TAKE 1 TABLET BY MOUTH ONCE DAILY AT NIGHT AT BEDTIME FOR SLEEP 01/20 completed Pharmacy stated that he is taking 150mg Not Available Not Available Not Available benzonata te 100 mg capsule TAKE 1-2 CAPSULES BY MOUTH THREE TIMES A DAY NEEDED FOR COUGH FOR 7 DAYS 01/20 completed Pharmacy stated that he is not taking medicati on Not Available Not Available Not Available pantopraz ole 40 mg tablet,de layed release TAKE 1 TABLET BY MOUTH ONCE DAILY active Not Available Not Available No t Available trazodone 150 mg tablet TAKE 1 TABLET BY MOUTH ONCE DAILY AT NIGHT AT BEDTIME FOR SLEEP active Not Available Not Available No t Available metformin 1,000 mg tablet TAKE 1 TABLET BY MOUTH TWICE DAILY active Not Available Not Available No t Available buspirone 10 mg tablet TAKE 1 TABLET BY MOUTH TWICE DAILY FOR ANXIETY 01/20 completed pharmacy stated that 15mg Not Available Not Available Not Available lisinopri l 10 mg tablet TAKE 2 TABLETS BY MOUTH ONCE DAILY active Not Available Not Available No t Available polymyxin B sulfate 10,000 unit-trim ethoprim 1 mg/mL eye drops INSTILL 3 DROPS THREE TIMES DAILY TO AFFECTED EYE UNTIL CLEAR active Not Available Not Available No t Available docusate sodium 100 mg capsule Take 1 capsule every day by oral route as directed for 30 days, for constipa tion. 2023 active Not Available Not Available Not Avai lable Fleet Mineral Oil enema Insert 1 mL as needed by rectal route at bedtime for 15 days, for constipa tion. 2023 active Not Available Not Available Not Avai lable folic acid 1 mg tablet TAKE 1 TABLET BY MOUTH ONCE DAILY FOR 30 DAYS active Not Available Not Available No t Available mupirocin 2 % topical ointment APPLY ASMAL AMOUNT OF OINTMENT TOPICALL Y TO AFFECTED AREA ONCE DAILY 02/04 completed Not Available Not Available Not Available furosemid e 20 mg tablet TAKE 1 TABLET BY MOUTH ONCE DAILY active Not Available Not Available No t Available oxycodone -acetamin ophen 7.5 mg-325 mg tablet TAKE 1 TABLET BY MOUTH FOUR TIMES DAILY NEEDED FOR PAIN 07/07 completed Not Available Not Available Not Available levofloxa adolph 750 mg tablet TAKE 1 TABLET BY MOUTH ONCE DAILY 02/04 completed Not Available Not Available Not Available methylpre dnisolone 4 mg tablets in a dose pack TAKE 6 TABLETS ON DAY 1 DIRECTED ON PACKAGE AND DECREASE BY 1 TAB EACH DAY FOR A TOTAL OF 6 DAYS 02/04 completed Not Available Not Available Not Available albuterol sulfate HFA 90 mcg/actua tion aerosol inhaler INHALE 2 PUFFS BY MOUTH 4 TIMES DAILY NEEDED active Not Available Not Available No t Available ipratropi um bromide 42 mcg (0.06 %) nasal spray SPRAY 2 SPRAYS TO EACH NOSTRIL THREE TIMES A DAY FOR 4 DAYS active Not Available Not Available No t Available fluticaso ne propionat e 50 mcg/actua tion nasal spray,robert pension active Not Available Not Available Not Available risperido ne 1 mg tablet TAKE 1 TABLET BY MOUTH TWICE DAILY FOR PSYCHOSI S 01/20 completed Not Available Not Available Not Available loratadin e 10 mg tablet TAKE 1 TABLET BY MOUTH ONCE DAILY active Not Available Not Available No t Available amoxicill in 875 mg-potass ium clavulana te 125 mg tablet Take 1 tablet every 12 hours by oral route for 7 days. 07/07 completed Not Available Not Available Not Available buspirone 15 mg tablet TAKE 1 TABLET BY MOUTH TWICE DAILY FOR ANXIETY active Not Available Not Available No t Available hydroxyzi ne pamoate 25 mg capsule TAKE 1 CAPSULE BY MOUTH TWICE DAILY NEEDED active Not Available Not Available No t Available ezetimibe 10 mg tablet Take 1 tablet every day by oral route as directed for 90 days, for choleste rol. active Not Available Not Available No t Available duloxetin e 30 mg capsule,d elayed release TAKE 1 CAPSULE BY MOUTH ONCE DAILY IN THE MORNING FOR DEPRESSI VE MOOD TAKE WITH 60 MG AND 30 MG DAILY 07/07 completed Not Available Not Available Not Available duloxetin e 60 mg capsule,d elayed release TAKE 1 CAPSULE BY MOUTH ONCE DAILY active Not Available Not Available No t Available chlorhexi dine gluconate 0.12 % mouthwash SWISH WITH 1 CAPFUL TWICE DAILY FOR 2 WEEKS active Not Available Not Available No t Available ranolazin e ER 500 mg tablet,ex tended release,1 2 hr TAKE 1 TABLET BY MOUTH TWICE DAILY active Not Available Not Available No t Available quetiapin e 400 mg tablet TAKE 1 TABLET BY MOUTH NIGHTLY PSYCHOSI S AND SLEEP active Not Available Not Available No t Available hydrochlo rothiazid e 12.5 mg tablet TAKE 1 TABLET BY MOUTH ONCE DAILY active Not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 I15.1 Will monitor BP and blood glucose and A1c Chronic ki dney disease 470628419 N18.5 Will monitor renal function Bleeding from nose 18923 6005 R04.0 Leave pressure bulb in place until follow up appointmen t with ENT as directed. Do not blow your nose. 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 Collection next visit. Pain of bi lateral knee joints 9742063310 91552 M25.561 Provided referral to orthopaedi c surgeon for c/o. Hyperlipidemia 06462100 E78.5 Will monitor level and treat per findings Morbid obesity 314374404 E66.01 Monitor wt with each visit Benign hyp ertensive heart disease without congestive heart failure 89908450 I11.0 will monitor for s/s with each visit. Depressive disorder 3548 9007 F33.9 will continue to monitor and discuss patient need to return to psychology if have worsening s/s Anxiety attack 246052992 F41.1 Will continue to monitor. Hyperlipid emia screening 758429241 Z13.220 E78.5 ASCVD Risk Score:12.4 % Risk of cardiovasc ular event (coronary or stroke or non-fatal PA or stroke) in next 10 years.5.2% 10-year cardiovasc ular risk if risk factors were optimal.la bs collected. Low back pain 505984299 M54.50 G89.29 Will refer to pain management to aid in pain management [id number] Renetta slaughter, [facility]- Main Office [address] [place] [address] 01/08/2024 13:26:50 01/11/2024 19:18:56 Depressive disorder 41737399 F33.9 Will monitor mental status with medication and contact psych to assist with medication evaluation and reconcilia tion Chronic ki dney disease 265663447 N18.5 Will monitor renal function Type 2 mika betes mellitus 02535965 E11.65 Current A1C is 6.3. Will monitor A1c and treat per findings. Collection next visit. Recurrent major depression 94567338 F33.9 R45.851 Will monitor thoughts or behavior with each visit. Will monitor for intention of self harm. Dizziness 235098328 R42 Improved with glucerna. Will monitor with each visit in associatio n with diabetes. Tremor 94484220 R25.1 Will monitor with each visit. Hyperlipidemia 14323670 E78.5 Will monitor cholestero l level [id number] slaughter [facility] Main Office [address] [place] [phone] 7 01/15/2024 13:00:14 01/17/2024 19:00:15 Dizziness 661324527 R42 EMS called for worsening s/s of dizziness. EMS call to take patient to hospital. Staff contacted patients [facility] per patient request to pickle pumper his car. Patient was admitted s/p ER visit for full evaluation .[facility] Chronic ki dney disease due to type 2 diabetes mellitus 7703634713 08 E11.22 N18.30 no abnormal findings Noncomplia nce with treatment 4002420 Z91.199 Upon return to the office will assess patient for home health care. Will review the medical records of specialty providers. Falls 149800641 R29.6 8099 Renetta slaughter [facility] Main Office [address] [place] [phone] 7 01/21/2024 12:55:53 01/24/2024 17:40:04 Falls 916988520 R29.6 Resolved since return from hospital. Dizziness 918691703 R42 Improved Chronic ki dney disease due to type 2 diabetes mellitus 9163275232 08 E11.22 N18.30 no abnormal findings:u frantz nitrogen (BUN) 18 normalcrea tinine 0.95 normaleGFR 92 normal A1c 6.3% Anxiety attack 104910294 F41.1 Will continue to monitor. Continue to follow up with mental health for continuati on of care. [id number] Renetta slaughter [facility] Main Office [address] [place] [phone] 03/23/2024 15:17:31 03/28/2024 13:59:42 Hypertension in chronic kidney disease stage 2 due to type 2 diabetes mellitus 9357513575 53398 E11.22 E11.8 I15.1 Will monitor BP and blood glucose and A1c Benign hyp ertensive heart disease without congestive heart failure 40216572 I11.0 will monitor for s/s with each visit. Hyperlipidemia 33452853 E78.5 E78.89 Will monitor cholestero l level Chronic ki dney disease 627584918 N18.5 Will monitor renal function Falls 612085192 R29.6 R42 H81.8X3 Keep appointmen t scheduled 04/05/2024 Vitamin D deficiency 347 29285 E55.9 labs collected [id number] slaughter [facility] Main Office [address] [place] [phone] 7 04/26/2024 15:03:18 04/26/2024 17:02:57 Hypertension in chronic kidney disease stage 2 due to type 2 diabetes mellitus 5538504922 51993 E11.22 E11.8 I15.1 Will monitor BP and blood glucose and A1c Benign hyp ertensive heart disease without congestive heart failure 79966890 I11.0 will monitor for s/s with each visit. Falls 815849238 R29.6 R42 H81.8X3 Keep appointmen t scheduled 04/05/2024 Chronic ki dney disease 171660775 N18.5 Will monitor renal function Type 2 mika betes mellitus 67167393 E11.65 Current A1C is 6.3. Will monitor A1c and treat per findings. Collection next visit. Body mass index 30+ - obesity 464529688 Z68.38 E66.9 Will monitor [id number] slaughter [facility] Main Office [address] [place] [phone] 7 05/24/2024 15:04:58 05/24/2024 20:55:01 Benign hypertensive heart disease without congestive heart failure 42853328 I11.0 will monitor for s/s with each visit. Type 2 mika betes mellitus 40249126 E11.65 Current A1C is 6.3. Will monitor A1c and treat per findings. Collection next visit. Deep venou s thrombosis of lower extremity 990751772 I82.409 continue Eliquis as directed. Will continue to monitor and instructed patient to follow up with cardiology . Transition of care 35164 35604 105 Z75.8 Z74.2 Referral to home health services. 8875 [address] slaughter [facility] Main Office [address] [place] [phone] 7 06/01/2024 15:01:33 07/02/2024 15:51:13 Benign hypertensive heart disease without congestive heart failure 43916845 I11.0 will monitor for s/s with each visit. Hypertensi on in chronic kidney disease stage 2 due to type 2 diabetes mellitus 5744503398 69230 E11.22 E11.8 I15.1 Will monitor BP and blood glucose and A1c Falls 060080568 R29.6 R42 H81.8X3 Keep appointmen t scheduled [id number] [address] slaughter [facility] Main Office [address] [place] [address] 06/23/2024 13:21:04 07/02/2024 15:51:29 Falls 817278537 R29.6 R42 H81.8X3 no fall since last appointmen t Dizziness 450408640 R42 Improved Type 2 mika betes mellitus 55164833 E11.65 Current A1C is 6.3. Will monitor A1c and treat per findings. Collection next visit. Constipation 33355503 K5 9.00 Medication ordered to aid with BM. Will inform endocrinol ogy of complaints of constipati on Health Concerns Section Related Observation LastModified by Organization Detai ls LastModified Time None Recorded Concern Status LastModified by Organization Details LastModified Time None Recorded Advance Directives Directive N: Payers Encounter Date Sequence Insurance Name Policy Number Policy Us Covered Member ID Us Member ID Guarantor Name 03/23/2024 1 [employer] (MEDICARE REPLACEMENT HMO) Justin Garrido [id number] Justin Garrido 03/23/2024 2 [place] Justin Garrido [id number] Justin Garrido 04/26/2024 1 [employer] (MEDICARE REPLACEMENT HMO) Justin Garrido [id number] Justin Garrido 04/26/2024 2 [place] Justin Garrido [id number] Justin Garrido 05/24/2024 1 [employer] (MEDICARE REPLACEMENT HMO) Justin Garrido [id number] Justin Garrido 05/24/2024 2 [place] Justin Garrido [id number] Justin Garrido 06/01/2024 1 [employer] (MEDICARE REPLACEMENT HMO) Justin Garrido [id number] Justin Garrido 06/01/2024 2 [place] Justin Garrido [id number] Justin Garrido 06/23/2024 1 [employer] (MEDICARE REPLACEMENT HMO) Justin Garrido [id number] Justin Garrido 06/23/2024 2 [place] Justin Garrido [id number] Justin Garrido Notes Date Note Type Note Provider Name and Address Organization Details Recorded Time 4 text/htm l DiabetesReported bypatient.Review finger sticks:fastin-250; Patient denies low BG in am Duration:chronic Control:usually well controlled; improved since last visit;home blood sugar range high(but reports improving since last visit, <200. No acute changes with BG); treated with insulin (and oral medications. Patient reports only eating 1 meal per day with intermittent snacks.); hemoglobin A1C has been less than 7; hemoglobin A1C goal is less than 6.5; LDL usually runs <100, goal is less than 80; BP usually runs less than 135/85, goal is less than 120/80 Compliance:compliant with medications; compliant with follow-up visits; compliant with physical activity; compliant with home glucose monitoring;noncompliant with diet(denies hunger and eat 1 time daily. Patient reports decrease in teeth causes the problem);side effects from medications(dizziness during the day and night and causes him not to be hungry and do not eat); no side effects from medications Self Care:monitoring glucose 4 times per day; checking feet regularly;not seeing eye doctor yearly(need referral); taking aspirin daily Associated Symptoms:no headaches; no confusion; no increased thirst; no increased urination; no blurred vision; no numbness of feet; no calluses on feet; no fatigue; no blurred vision; no paresthesias;weight loss (6 lbs);dizziness;sweats;increa sed appetite(poor decreased) Chronic Complications:diabetic neuropathy: Yes; hypertension: Yes; hyperlipidemia: Yes; kidney disease: Yes Comorbidities:cardiovascular risk factors; depression: Yes; heart failureDizzinessReported bypatient.Quality:spinning; lightheadedness; unsteadiness; disorientation Severity:some effect on daily activities;avoiding exercise Duration:intermittent episodes lasting: (1 time every 2-3 weeks) Onset/Timing:recurrent; episodic; took nitroglycerin 1 day ago Context:non-smoker Alleviating factors:holding still; lying down Aggravating factors:moving head; positional change Associated Symptoms:syncope;loss of consciousness; a fall;history of diabetes;seizure;palpitation s(after becoming dizzy) Prior opinioncardiology Renetta Alvarado n, [facility]- [address] [place], [address], [facility] [employer] [facility] 03/28/2024 13:58:49 4 text/htm l DiabetesReported bypatient.Review finger sticks:fasting: <150; middle of the night: 240-300 Duration:chronic Control:usually well controlled; improved since last visit;home blood sugar range high(but reports improving since last visit, <200. No acute changes with BG); treated with insulin (and oral medications. Patient reports only eating 1 meal per day with intermittent snacks.) Compliance:compliant with medications; compliant with follow-up visits; compliant with physical activity; compliant with home glucose monitoring;noncompliant with diet(drink OJ and other carbs at bedtime);side effects from medications(dizziness during the day and night and causes him not to be hungry and do not eat); no side effects from medications Self Care:monitoring glucose 4 times per day; checking feet regularly;not seeing eye doctor yearly(Patient did not get a call from eye MD); taking aspirin daily Associated Symptoms:no headaches; no confusion; no increased thirst; no increased appetite; no increased urination; no blurred vision; no numbness of feet; no calluses on feet; no fatigue; no blurred vision; no paresthesias;weight loss (4 lbs);dizziness;sweats Chronic Complications:diabetic neuropathy: Yes; hypertension: Yes; hyperlipidemia: Yes; kidney disease: Yes Comorbidities:cardiovascular risk factors; depression: Yes; heart failureDizzinessReported bypatient.Severity:no effect on daily activities Onset/Timing:took nitroglycerin 1 day ago Context:non-smoker Associated Symptoms:no double vision; no dysphagia; no slurred speech; no blurred vision; no vision changes; no foggy vision; no blindness; no spots in field of vision; no eye pain; no hearing loss; no difficulty understanding speech; no ear discharge; no ringing in the ears; no pressure in ears; no noise in the ears; no earache; no anxiety or unsteady feelings; no syncope; no loss of consciousness; no headache; no head pressure; no nausea; no vomiting; no weak limbs; no facial numbness; no difficulty with speech; no tingling around the mouth; normal stools; no sensation of heart racing; (normal) a fall; no history of hypertension; no history of diabetes; no seizure; no facial weakness; no tingling of fingers; no audible eye movements; no tinnitis; no shortness of breath; no palpitations; no deafness; no sweating; no photophobiaNotes:Patient reports no longer falling since began eating but reports only miss lunch daily. Renetta segundo, [facility] [address] [place] [address], [phone], [facility] [employer] [facility] 04/26/2024 17:02:17 4 text/htm l DiabetesReported bypatient.Review finger sticks:fasting: <250 Duration:chronic Control:usually well controlled; improved since last visit;home blood sugar range high(but continues to reports improving since last visit, <200. No acute changes with BG); treated with insulin (and oral medications continues. Patient reports only eating 1 meal per day with intermittent snacks.); hemoglobin A1C has been less than 7; hemoglobin A1C goal is less than 6.5 Compliance:compliant with medications; compliant with follow-up visits; compliant with physical activity; compliant with home glucose monitoring;side effects from medications(dizziness during the day and night and causes him not to be hungry and do not eat); no side effects from medications Self Care:monitoring glucose 4 times per day; checking feet regularly;not seeing eye doctor yearly(still did not get a call from eye MD); taking aspirin daily Associated Symptoms:no headaches; no confusion; no increased thirst; no increased appetite; no increased urination; no blurred vision; no numbness of feet; no calluses on feet; no fatigue; no blurred vision; no paresthesias;weight loss (2 lbs) Chronic Complications:diabetic neuropathy: Yes; hypertension: Yes; hyperlipidemia: Yes; kidney disease: Yes Comorbidities:cardiovascular risk factors; depression: Yes; heart failureDizzinessReported bypatient.Severity:no effect on daily activities Duration:intermittent episodes lasting:; lasts <1 minute Onset/Timing:daytime; recurrent; episodic; went to Er d/t chest pain Context:non-smoker;occurs with exertion Alleviating factors:holding still; lying down Aggravating factors:rapid movements; bending/stooping; positional change; exertion Associated Symptoms:no double vision; no dysphagia; no slurred speech; no blurred vision; no vision changes; no foggy vision; no blindness; no spots in field of vision; no eye pain; no hearing loss; no difficulty understanding speech; no ear discharge; no ringing in the ears; no pressure in ears; no noise in the ears; no earache; no anxiety or unsteady feelings; no syncope; no loss of consciousness; no headache; no head pressure; no nausea; no vomiting; no weak limbs; no facial numbness; no difficulty with speech; no tingling around the mouth; normal stools; no sensation of heart racing; (normal) a fall; no seizure; no facial weakness; no tingling of fingers; no audible eye movements;history of hypertension;history of diabetes; no tinnitis;shortness of breath; no palpitations; no deafness; no sweating; no photophobia Prior opinioncardiologyNotes:Patie nt continue to report no longer falling since began eating but reports no longer missing meals. blood thinner right arm pain r/t Renetta Alvarado n, [facility]- [address] [place], [address], [facility], [facility] 05/24/2024 20:54:31 4 text/htm l DiabetesReported bypatient.Review finger sticks:fasting: <200; Patient denies checking BG at night Duration:chronic Control:usually well controlled; improved since last visit; treated with insulin (and oral medications continues. Patient reports only eating 1 meal per day with intermittent snacks. Patient reports long hx of working at night and continues to eat breakfast 3 am.); hemoglobin A1C has been less than 7; hemoglobin A1C goal is less than 6.5 Compliance:compliant with medications; compliant with follow-up visits; compliant with physical activity; compliant with home glucose monitoring;noncompliant with diet; no side effects from medications Self Care:monitoring glucose 4 times per day; seeing eye doctor regularly; checking feet regularly Associated Symptoms:no headaches; no confusion; no increased thirst; no increased appetite; no increased urination; no blurred vision; no calluses on feet; no fatigue; no blurred vision; no paresthesias;dizziness;numbn ess of feet(numbness) Chronic Complications:diabetic neuropathy: Yes; hypertension: Yes; hyperlipidemia: Yes; kidney disease: Yes Comorbidities:cardiovascular risk factors; depression: Yes; heart failureDizzinessReported bypatient.Quality:lightheade dness; Patient reports sleeping Severity:no effect on daily activities Duration:intermittent episodes lasting:; lasts <1 minute Onset/Timing:daytime; recurrent; episodic; Patient reports usually sleeping 2-6 pm and when he is up during his sleeping our he has increased dizziness. Context:non-smoker;occurs with exertion Alleviating factors:holding still; lying down Aggravating factors:rapid movements; bending/stooping; positional change; exertion Associated Symptoms:no double vision; no dysphagia; no slurred speech; no blurred vision; no vision changes; no foggy vision; no blindness; no spots in field of vision; no eye pain; no hearing loss; no difficulty understanding speech; no ear discharge; no ringing in the ears; no pressure in ears; no noise in the ears; no earache; no anxiety or unsteady feelings; no syncope; no loss of consciousness; no headache; no head pressure; no nausea; no vomiting; no weak limbs; no facial numbness; no difficulty with speech; no tingling around the mouth; normal stools; no sensation of heart racing; (normal) a fall; no seizure; no facial weakness; no tingling of fingers; no audible eye movements;history of hypertension;history of diabetes; no tinnitis;shortness of breath; no palpitations; no deafness; no sweating; no photophobia Prior opinioncardiologyNotes:Patie nt reports falling after appointment Friday d/t time of his normal sleep blood thinner right arm pain r/t Renetta segundo, [facility]- [address] [place], [address], [facility] 07/02/2024 15:39:38 4 text/htm l ConstipationReported bypatient.Quality:worsening; decreased frequency Associated Symptoms:no excess gas; no heartburn;abdominal pain;crampingDiabetesReporte d bypatient.Review finger sticks:fasting: <120-300 Duration:chronic Control:improved since last visit;usually poorly controlled; treated with insulin (and oral medications continues. Patient reports only eating 1 meal per day with intermittent snacks. Patient reports not taking insulin same time daily.); hemoglobin A1C has been less than 7; hemoglobin A1C goal is less than 6.5 Compliance:compliant with follow-up visits; compliant with physical activity; compliant with home glucose monitoring;noncompliant with medications(not taking medication same time daily.);noncompliant with diet(no appetite); no side effects from medications Self Care:monitoring glucose 4 times per day; seeing eye doctor regularly; checking feet regularly Associated Symptoms:no headaches; no confusion; no increased thirst; no increased appetite; no increased urination; no blurred vision; no calluses on feet; no fatigue; no blurred vision; no paresthesias;dizziness;numbn ess of feet(numbness) Chronic Complications:diabetic neuropathy: Yes; hypertension: Yes; hyperlipidemia: Yes; kidney disease: Yes Comorbidities:cardiovascular risk factors; depression: Yes; heart failureDizzinessReported bypatient.Quality:lightheade dness; Patient reports not eating x 3 days at time Severity:no effect on daily activities Duration:intermittent episodes lasting:; lasts <1 minute Onset/Timing:daytime; recurrent; episodic; New Patient reports not eating and no changes in usually sleeping 2-6 pm and when he is up during his sleeping our he has increased dizziness. Context:non-smoker;occurs with exertion Alleviating factors:holding still; lying down Aggravating factors:rapid movements; bending/stooping; positional change; exertion Associated Symptoms:no double vision; no dysphagia; no slurred speech; no blurred vision; no vision changes; no foggy vision; no blindness; no spots in field of vision; no eye pain; no hearing loss; no difficulty understanding speech; no ear discharge; no ringing in the ears; no pressure in ears; no noise in the ears; no earache; no anxiety or unsteady feelings; no syncope; no loss of consciousness; no head pressure; no nausea; no vomiting; no weak limbs; no facial numbness; no difficulty with speech; no tingling around the mouth; normal stools; no sensation of heart racing; (normal) a fall; no seizure; no facial weakness; no tingling of fingers; no audible eye movements;headache;history of hypertension;history of diabetes; no tinnitis;shortness of breath; no palpitations; no deafness; no sweating; no photophobia Prior opinioncardiologyNotes:Patiluiza nt reports falling after appointment Friday d/t time of his normal sleepMusculoskeletal PainReported bypatient.Location:lumbar spine Severity:worsening;interfere s with work/school Duration:present for >12 months Timing:constant Context:prior back problems Alleviating Factors:rest Aggravating factors:bending over Associated Symptoms:no fever; no weak limbs; no tingling; no incontinence;numbness of the legs/feet Prior Tests/Treatmentsused medication for back pain; had evaluations by back specialist Renetta segundo, DENTAL SCHEDULING COORDINATOR-BC [address] [place], [address], [facility] CLAUDE JIMENEZ 07/02/2024 15:50:52
--- OUTSIDE RECORDS SUMMARY | 2025-02-10 22:19 | XMS_ITS | CCD ---
Author Name Gabino MILNER, Dr Brianna jarrett Address [address] [facility] [address] [place] [address] Phone Organization [employer] [facility] Phone Care Team Providers Care Bank Guard Name Role Phone Alycia Weaver NP Primary Care Provider Unavailabl e Unavailable Chronic Care Management Unavaila ble Summary Purpose DataExchange Insurance Providers Payer name Policy type / Coverage type Covered republican ID Effective Begin Date Effective End Date MEDICARE [place] [id number] Unknown Unknown NO COPAY HOLD [id number] Unknown Unknown Family History Family History data not found Problems Condition Codes Effective Dates Condition St atus Bipolar disorder ICD-10: F31.9 ICD-9: 296.80 06/10/2023 Active CAD (coronary artery disease) ICD-10: I2 5.10 ICD-9: 414.00 06/10/2023 Active DM2 (diabetes mellitus, type 2) ICD-10: E11.9 ICD-9: 250.00 06/10/2023 Active Gout ICD-10: M10.9 ICD-9: 274.9 06/10/2023 Active H/O heart artery stent ICD-10: Z95.5 ICD-9: V45.82 06/10/2023 Active HLD (hyperlipidemia) ICD-10: E78.5 ICD-9: 272.4 06/10/2023 Active HTN (hypertension) ICD-10: I10 ICD-9: 401.9 06/10/2023 Active Leg edema ICD-10: R60.0 ICD-9: 782.3 06/10/2023 Active Neuropathy ICD-10: G62.9 ICD-9: 355.9 06/10/2023 Active Medications Medication Codes Instructions Start Date Stop Date Status Fill Instructions aspirin 81 mg tablet,delayed release RxNorm: 793687 Take 1 Tablet(s) Oral every day 06/10/20 023 Inactive ranolazine ER 500 mg tablet,extended release,12 hr RxNorm: 939737 Take 1 Tablet(s) Oral two times a day 06/10/20 No Stop Date Active buspirone 15 mg tablet RxNorm: 132018 Take 1 Tablet(s) Oral two times a day for anxiety 06/10/20 23 Inactive Ozempic 1 mg/dose (4 mg/3 mL) subcutaneous pen injector RxNorm: 6708354 Inject 1 Milligram(s) Subcutaneous once a week 06/10/20 Inactive duloxetine 60 mg capsule,delayed release RxNorm: 946614 Take 1 Capsule(s) Oral every day 06/10/20 Inactive furosemide 20 mg tablet RxNorm: 507431 Take 1 Tablet(s) Oral every day 06/10/20 No Stop Date Active hydrochlorothiazide 12.5 mg tablet RxNorm: 128259 Take 1 Tablet(s) Oral every day 06/10/20 No Stop Date Active pantoprazole 40 mg tablet,delayed release RxNorm: 963795 Take 1 Tablet(s) Oral every morning 06/10/20 No Stop Date Active divalproex 500 mg tablet,delayed release RxNorm: 8617852 Take 1 Tablet(s) Oral two times a day for mood 06/10/20 No Stop Date Active atorvastatin 40 mg tablet RxNorm: 093930 Take 1 Tablet(s) Oral every evening 06/10/20 023 Inactive gabapentin 600 mg tablet RxNorm: 006093 Take 1 Tablet(s) Oral two times a day 06/10/20 No Stop Date Active citalopram 20 mg tablet RxNorm: 107265 Take 1 Tablet(s) Oral every day 06/10/20 No Stop Date Active lisinopril 10 mg tablet RxNorm: 879818 Take 1 Tablet(s) Oral every day 06/10/20 024 Inactive Lex Valdes U-300 Insulin 300 unit/mL (1.5 mL) subcutaneous pen RxNorm: 8107408 Administer 60 Unit(s) Subcutaneous every morning and 30 Units every evening 06/10/20 23 024 Inactive allopurinol 100 mg tablet RxNorm: 954355 Take 1 Tablet(s) Oral every day 06/10/20 23 024 Inactive clopidogrel 75 mg tablet RxNorm: 758600 Take 1 Tablet(s) Oral every day 06/10/20 No Stop Date Active hydroxyzine HCl 25 mg tablet RxNorm: 431573 Take 1 Tablet(s) Oral two times a day as needed for anxiety 06/10/20 No Stop Date Active metformin 500 mg tablet RxNorm: 149365 Take 1 Tablet(s) Oral two times a day 06/10/20 23 023 Inactive quetiapine 400 mg tablet RxNorm: 286477 Take 1 Tablet(s) Oral every evening for sleep and pspychosis 06/10/20 024 Inactive Toujeo Max U-300 SoloStar subcutaneous RxNorm: 0553478 subcutaneous 06/10/20 023 Inactive Medication Administered No Medication Administered data Results Observation Observation Code Item Item Code Result Date Service Location CHOLESTEROL 03452 Cholesterol 2093-3 154 mg/dL 023 [facility] [address] [place] [address] CHEM 14 (METABOLIC PANEL) 39416 Glucose 2345-7 173 mg/dL 023 [facility] [address] [place] [address] CHEM 14 (METABOLIC PANEL) 38812 BUN 3094-0 17 mg/dL 023 [facility] [address] [place] [address] CHEM 14 (METABOLIC PANEL) 08518 Creatinine 2160-0 1.1 mg/dL 023 [facility] [address] [place] [address] CHEM 14 (METABOLIC PANEL) 34014 BUN/Creat Ratio 3097-3 16.0 023 [facility] [address] [place] [address] CHEM 14 (METABOLIC PANEL) 65732 GFR Estimated 06877-8 81 mL/min/1. 73m2 023 [facility] [address] [place] [address] CHEM 14 (METABOLIC PANEL) 38942 Sodium 2951-2 143 mmol/L 023 [facility] [address] [place] [address] CHEM 14 (METABOLIC PANEL) 04529 Potassium 2823-3 4.4 mmol/L 023 [facility] [address] [place] [address] CHEM 14 (METABOLIC PANEL) 64855 Chloride 2075-0 109 mmol/L 023 [facility] [address] [place] [address] CHEM 14 (METABOLIC PANEL) 50363 Total CO2 2028-9 26 mmol/L 023 [facility] [address] [place] [address] CHEM 14 (METABOLIC PANEL) 76542 Anion Gap 1863-0 12.4 mEq/L 023 [facility] [address] [place] [address] CHEM 14 (METABOLIC PANEL) 16561 Calculated Serum Osmolality 22724-5 302 mOsm/kg 023 [facility] [address] [place] [address] CHEM 14 (METABOLIC PANEL) 96263 Albumin 39780-4 3.7 g/dL 023 [facility] [address] [place] [address] CHEM 14 (METABOLIC PANEL) 75620 Total Protein 2885-2 6.6 g/dL 023 [facility] [address] [place] [address] CHEM 14 (METABOLIC PANEL) 48089 Globulin 2336-6 2.9 g/dL 023 [facility] [address] [place] [address] CHEM 14 (METABOLIC PANEL) 19843 Albumin/Globulin Ratio 1759-0 1.3 023 [facility] [address] [place] [address] CHEM 14 (METABOLIC PANEL) 78201 ALK PHOS 6768-6 112.00 U/L 023 [facility] [address] [place] [address] CHEM 14 (METABOLIC PANEL) 42677 SGOT/AST 1920-8 33 U/L 023 [facility] [address] [place] [address] CHEM 14 (METABOLIC PANEL) 23933 SGPT/ALT 1743-4 37 U/L 023 [facility] [address] [place] [address] CHEM 14 (METABOLIC PANEL) 48517 Total Bilirubin 1975-2 0.5 mg/dL 023 [facility] [address] [place] [address] CHEM 14 (METABOLIC PANEL) 54623 Calcium 19546-1 9.3 mg/dL 023 [facility] [address] [place] [address] CHEM 14 (METABOLIC PANEL) 10665 Corrected Calcium 72057-0 9.7 mg/dL 06/11 023 [facility] [address] [place] [address] TSH 81295 TSH 42286-6 2.240 uIU/mL 023 [facility] [address] [place] [address] COMPLETE CBC W/ DIFF WBC 48605 WBC 6690-2 5.6 K/ul 023 [facility] [address] [place] [address] COMPLETE CBC W/ DIFF WBC 68867 RBC 789-8 5.33 M/uL 023 [facility] [address] [place] [address] COMPLETE CBC W/ DIFF WBC 49091 Hemoglobin 718-7 14.8 g/dL 0[address] [facility] [address] [place] [address] COMPLETE CBC W/ DIFF WBC 14176 Hematocrit 4544-3 46.2 % 0[address] [facility] [address] [place] [address] COMPLETE CBC W/ DIFF WBC 91920 MCV 787-2 86.8 fL 023 [facility] [address] [place] [address] COMPLETE CBC W/ DIFF WBC 71601 MCH 785-6 27.8 pg 023 [facility] [address] [place] [address] COMPLETE CBC W/ DIFF WBC 05639 MCHC 786-4 32.1 g/dL 0[address] [facility] [address] [place] [address] COMPLETE CBC W/ DIFF WBC 50005 RDW 788-0 17.4 % 0[address] [facility] [address] [place] [address] COMPLETE CBC W/ DIFF WBC 18860 Platelet Count 777-3 248 K/uL 023 [facility] [address] [place] [address] COMPLETE CBC W/ DIFF WBC 18085 MPV 05980-0 7.2 fL 023 [facility] [address] [place] [address] COMPLETE CBC W/ DIFF WBC 57696 Neutrophils % 770-8 48.7 % 023 [facility] [address] [place] [address] COMPLETE CBC W/ DIFF WBC 63610 Lymphocytes % 736-9 32.9 % 023 [facility] [address] [place] [address] COMPLETE CBC W/ DIFF WBC 09535 Monocytes % 5905-5 12.2 % 023 [facility] [address] [place] [address] COMPLETE CBC W/ DIFF WBC 62555 Eosinophils % 713-8 5.2 % 023 [facility] [address] [place] [address] COMPLETE CBC W/ DIFF WBC 51731 Basophils% 706-2 1.0 % 023 [facility] [address] [place] [address] COMPLETE CBC W/ DIFF WBC 39449 Absolute Neutrophil 751-8 2727 /ul 023 [facility] [address] [place] [address] COMPLETE CBC W/ DIFF WBC 61129 Absolute Lymphocyte 53852-1 1842 /ul 023 [facility] [address] [place] [address] COMPLETE CBC W/ DIFF WBC 28159 Absolute Monocyte 742-7 683 /ul 023 [facility] [address] [place] [address] COMPLETE CBC W/ DIFF WBC 21378 Absolute Eosinophil 711-2 291 /ul 023 [facility] [address] [place] [address] COMPLETE CBC W/ DIFF WBC 90997 Absolute Basophil 704-7 56 /ul 023 [facility] [address] [place] [address] DIRECT LDL - CHOL 56034 LDL-Direct 27321-0 83 mg/dL 0 023 [facility] [address] [place] [address] TRIGLYCERIDES 34369 Triglycerides 2571-8 206 mg/dL 023 [facility] [address] [place] [address] TRIGLYCERIDES 71203 VLDL 64519-4 41 mg/dL 023 [facility] [address] [place] [address] [id number] IN [facility]8-4 Glyco HGB A1C 41494-7 9.5 % 023 [facility] [address] [place] [address] [id number] IN [facility]8-4 eAG 53540-2 226 mg/dL 023 [facility] [address] [place] [address] HDL - CHOL 34172 HDL 2085-9 44 mg/dL 023 [facility] [address] [place] [address] HDL - CHOL 62198 CHD 11734-4 29 % 023 [facility] [address] [place] [address] Procedures Procedure Codes Date Colorectal Screening Screening for Colorectal Cancer/Screened:/*Yes colonoscopy was performed:/Negative: DOS: CPT-4: CRSUnknown 023 [id number] CPT-4: 68589 Unknown Vital Signs Date Vital 06/10/2023 Blood Pressure 1: 120/78 Code: 8480-6 Blood Pressure 2: 119/80 Code: 8480-6 Heart Rate 1: 82 bpm Respiratory Rate: 16 bpm SpO2: 97% Temperature: 36.7 (C) / 98.0 (F) Weight: 219 lbs 14 oz Code: 60778-9 Reason For Visit Reason For Visit Effective Dates Notes HTN 06/10/2023 CAD 06/10/2023 bipolar disorder 06/10/2023 anxiety 06/10/2023 gout 06/10/2023 Encounters Encounter Performer Location Location Address Codes Artie e ([id number]) Home or Residence Visit WINE STEWARD/STEWARDESS - Moderate Level, 60 mins Diagnosis: Gout[ICD10: M10.9] Diagnosis: DM2 (diabetes mellitus, type 2)[ICD10: E11.9] Diagnosis: CAD (coronary artery disease)[ICD10: I25.10] Diagnosis: H/O heart artery stent[ICD10: Z95.5] Diagnosis: Bipolar disorder[ICD10: F31.9] Diagnosis: HTN (hypertension)[I CD10: I10] Diagnosis: Neuropathy[ICD10 : G62.9] Diagnosis: Leg edema[ICD10: R60.0] Diagnosis: HLD (hyperlipidemia) [ICD10: E78.5] Marivel Lloyd [place] [facility] [address] [place] [address] CPT-4: 51813 06/10/2023 Plan of Care Planned Activity Notes Codes Status Date Patient Education: Anxiety Completed 06/10/2023 Patient Education: Hypertension Comp leted 06/10/2023 Patient Education: Patient M edication Summary Completed 06/10/2023 Patient Education: Heart Disease Com pleted 06/10/2023 Appointment: Marivel Lloyd WPtel: [address] [place] [address] N180 05/15/2023 Referral: Housing Coordination Referral Initi ated Referral: Pending Medical Re cords Information faxed MR request Order Faxed Instructions Comment Date follow up with power originator next month as planned bloodwork obtained today . 06/10/2023 Medical Equipment No Medical Equipment data Health [...]
--- OUTSIDE RECORDS SUMMARY | 2025-02-10 22:19 | XMS_ITS | Clinical Summary ---
Author Organization [facility] Address [address] [place] [address] Care Team Providers Care Hair Tinter Name Role Phone ZabalaRichmondWellington, Renetta Llanos NP Primary Care Provide r Allergies No known active allergies Medications * This document contains information received from the source organization and may not represent a complete record from that organization. allopurinol (ZYLOPRIM) 100 MG tablet Take 1 tablet (100 mg total) by mouth daily 3 Active albuterol 90 mcg/actuation inhaler Inhale 2 puffs into the lungs every 6 (six) hours as needed for wheezing 1 Inhaler 3 1 Active aspirin 81 MG tablet, delayed release Take 1 tablet by mouth once daily 90 tablet 3 3 Active hydrOXYzine (VISTARIL) 25 MG capsule Take 1 capsule (25 mg total) by mouth 2 (two) times a day between meals 3 Active busPIRone (BUSPAR) 15 MG tablet Take 1 tablet (15 mg total) by mouth 2 (two) times a day 3 Active divalproex (DEPAKOTE) 500 MG tablet, delayed release, 12hr Take 1 tablet (500 mg total) by mouth 2 (two) times a day 3 Active OLANZapine (ZYPREXA) 7.5 MG tablet Take 1 tablet (7.5 mg total) by mouth nightly 3 Active pantoprazole (PROTONIX) 40 MG tablet, delayed release Take 1 tablet (40 mg total) by mouth daily 90 tablet 3 3 Active ranolazine (RANEXA) 500 MG tablet, extended release 12 hr Take 1 tablet (500 mg total) by mouth 2 (two) times a day 180 tablet 3 3 Active flash glucose sensor (FreeStyle Geovanni 2 Sensor) KitIndications: Diabetes mellitus type 2, insulin dependent (HCC) 1 kit by Miscellaneous route every 14 (fourteen) days 2 kit 11 3 Active flash glucose sensor (FreeStyle Geovanni 2 Sensor) KitIndications: Diabetes mellitus type 2, insulin dependent (HCC) 1 kit by Miscellaneous route every 14 (fourteen) days 2 kit 11 3 Active QUEtiapine (SEROquel) 300 MG tablet Take 1 tablet (300 mg total) by mouth nightly Active traZODone (DESYREL) 150 MG tablet Take 1 tablet (150 mg total) by mouth nightly Active atorvastatin (Lipitor) 40 MG tabletIndicatio ns:Diabetes mellitus type 2, insulin dependent (HCC) Take 1 tablet (40 mg total) by mouth daily 90 tablet 3 4 Active Additional Information Patient taking differently:40 mg OralNightly, Informant: Other, Reported on 05/17/2024 semaglutide (Ozempic) 2 mg/dose (8 mg/3 mL) PnIjIndications :Diabetes mellitus type 2, insulin dependent (HCC) Inject 2 mg under the skin every 7 (seven) days 3 mL 11 4 Active benztropine (COGENTIN) 0.5 MG tablet Take 1 tablet (0.5 mg total) by mouth nightly Active dapagliflozin propanediol (Farxiga) 10 mg tablet Take 2 tablets (20 mg total) by mouth daily Patient states he is taking 20 MG Active DULoxetine (CYMBALTA) 60 MG capsule, delayed release Take 2 capsules (120 mg total) by mouth every morning 4 Active furosemide (LASIX) 20 MG tablet Take 1 tablet (20 mg total) by mouth daily 4 Active risperiDONE (RisperDAL) 2 MG tablet Take 1 tablet (2 mg total) by mouth 2 (two) times a day Active traMADoL (ULTRAM) 50 mg tablet Take 1 tablet (50 mg total) by mouth 2 (two) times a day as needed for pain 4 Active nitroglycerin (NITROSTAT) 0.[address] 1 tablet (0.3 mg total) under the tongue every 5 (five) minutes as needed for chest pain 4 Active metFORMIN (GLUCOPHAGE) 500 MG tabletIndicatio ns:type 2 diabetes mellitus Take 2 tablets (1,000 mg total) by mouth 2 (two) times a day 360 tablet 3 4 Active isosorbide mononitrate (IMDUR) 30 MG tablet, extended release 24 hr Take 1 tablet (30 mg total) by mouth daily 90 tablet 3 4 Active lisinopriL (ZESTRIL) 10 MG tabletIndicatio ns:Diabetes mellitus type 2, insulin dependent (HCC),Hypertens ion associated with type 2 diabetes mellitus (HCC) Take 2 tablets (20 mg total) by mouth daily 180 tablet 3 4 Active clopidogreL (PLAVIX) 75 mg tablet Take 1 tablet (75 mg total) by mouth daily 90 tablet 1 4 Active insulin glargine U-300 conc (Toujeo Max U-300 SoloStar) 300 unit/mL (3 mL) InPnIndications :Diabetes mellitus type 2, insulin dependent (HCC) Inject 12 Units under the skin daily 9 mL 2 4 Active gabapentin (NEURONTIN) 600 MG tabletIndicatio ns:Diabetes mellitus type 2, insulin dependent (HCC),Neuropath y Take 1 tablet (600mg) in the morning and take 1.5 (900mg) at bedtime 140 tablet 2 4 Active Active Problems Problem Noted Date Diagnosed Date Pulmonary embolism 05/17/2024 Hyponatremia 01/16/2024 Hypochloremia 01/16/2024 History of CAD (coronary artery disease) 024 Benign essential HTN 01/16/2024 Unstable angina 01/16/2024 Recurrent syncope 01/15/2024 Mixed hyperlipidemia 02/11/2023 Advance care planning 07/29/2022 Phimosis 08/21/2021 AVM (arteriovenous malformation) brain 1 Overview (01/19/2021): Added automatically from request for surgery [id number] Confusion and disorientation 01/08/2021 Cerebral AVM 01/05/2021 Overdose of cocaine 11/15/2020 Cocaine overdose, undetermined intent, initial e ncounter 11/15/2020 Left sided numbness 08/16/2020 Anxiety 06/20/2020 Atherosclerosis of [place] co ronary artery of [place] heart without angina pectoris 01/25/2020 Facial numbness 09/29/2018 Controlled type 2 diabetes m kalee with hypoglycemia, without long-term current use of insulin 01/02/2017 [place] on CPAP 10/23/2016 Diabetes mellitus with neuro logical manifestations, uncontrolled 02/16/2016 Hypertension associated with type 2 diabetes delfina litus 02/16/2016 Hyperlipidemia associated with type 2 diabetes m ellitus Morbid obesity Near syncope Major depression, recurrent, chronic Panic attack 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 Stroke risk Ileus Lingual facial buccal dyskinesia Obesity (BMI 30-39.9) Oropharyngeal dysphagia Methamphetamine abuse History of substance use disorder Mood disorder Visual disturbance Syncope and collapse Immunizations Immunization Administration Dates Next Due Annual Influenza 06/13/2023, 2,06/12/2022,07/21,06/28/2019,02/07/2019,07/09/2018 ,06/12/2017,07/23/2016,08/22/2015 Cholera 07/21/2020 Hep A / Hep B 06/13/2023 Moderna COVID-19 Vaccine Biv alent Booster 10/02/2022 Pneumococcal Polysaccharide (PCV23) 03/27,04/13/2019,01/23/2018,08/22 Pneumococcal Unspecified 04/13/2019 Shingrix 12/31/2019, 0,09/28/2019,09/28 Tdap 02/17/2017 Zoster, live 01/23/2018 influenza Quad, 3 years - 64 years 07/23/2016, Family History Medical History Relation Name Comments No Known Medical Problems Father No Known Medical Problems Mother Relation Name Status Comments Father Mother Social History Tobacco Use Types Packs/Day Years Used Date Smoking Tobacco: Former Cigarettes 7 33 1 - 08/20/2005 Smokeless Tobacco: Never Tobacco Cessation:Counseling Given: No Comments:07/12/19....AGE 6.....5 PPD......QUIT FOR 14 YRS......PATG Alcohol Use Standard Drinks/Week Comments Not Currently 0 (1 standard drink = 0.6 oz pur e alcohol) [facility] Utilities Answer Date Recorded In the past 12 months has th e electric, gas, oil, or water company threatened to shut off services in your home? No 05/18/2024 PHQ-2 Answer Date Recorded PHQ-2 Total Score 6 09/23/2020 Hunger Vital Sign Answer Date Recorded Within the past 12 months, y ou worried that your food would run out before you got the money to buy more. Never true 05/18/20 24 Within the past 12 months, t he food you bought just didn't last and you didn't have money to get more. Never true 05/18/2024 PRAPARE - Transportation Answer Date Re corded In the past 12 months, has l ack of transportation kept you from medical appointments or from getting medications? No 04/27 In the past 12 months, has l ack of transportation kept you from meetings, work, or from getting things needed for daily living? No 05/18/2024 Housing Stability Vital Sign Answer Artie e Recorded In the last 12 months, was t here a time when you were not able to pay the mortgage or rent on time? No 05/18/2024 Number of Times Moved in the Last Year Not on fi le 05/18/2024 At any time in the past 12 m [facility], were you homeless or living in a nursing home (including now)? No 05/18/2024 Sex and Gender Information Value Date Recorded Sex Assigned at Not on file Legal Sex Male 3:29 AM EDT Gender Identity Not on file Sexual Orientation Not on file Last Filed Vital Signs Vital Sign Reading Time Taken Comments Blood Pressure 131/72 08/16/2024 9:39 PM EDT Pulse 84 08/16/2024 9:39 PM EDT Temperature 36.6 ??C (97.9 ??F) 08/16/2024 9:39 PM ED T Respiratory Rate 17 08/16/2024 9:39 PM EDT Oxygen Saturation 93% 08/16/2024 9:39 PM EDT Inhaled Oxygen Concentration 30% 10/20/2021 3 :50 AM EST Weight 84.5 kg (186 lb 4.6 oz) 08/16/2024 10:00 PM EDT Height 154.9 cm (5' 1 ) 08/16/2024 1:26 PM EDT Body Mass Index 35.2 08/16/2024 1:26 PM EDT Plan of Treatment Health Maintenance Due Date Last Done Comments CT Colonography 1965 Colonoscopy 1965 Colorectal Screening 1965 FIT-DNA 1965 FIT 1965 FOBT 1965 HIV SCREENING 1965 HIV Screening Every 1 Year 1965 HIV Screening Once 1965 Hepatitis C Screening 1965 Sigmoidoscopy 1965 CKD Surveillance: ACR 11/27/2019 11/27/2018 URINE MICROALBUMIN 11/27/2019 11/27/2018 Pneumococcal Vaccine: 0 to 64 Years (2 of 2 - PCV) 04/13/2020 04/13/2019, 04/13/2019, 04/13/2019, Additional history exists OPHTHALMOLOGY EXAM 06/29/2020 06/29/2019 COVID-19 Vaccine (4 of 4 - Booster for Pfizer) 01/31/2023 10/02/2022, 08/22/2021, 01/24/2021, Additional history exists HEPATITIS B VACCINES (2 of 3 - Hep B Twinrix risk 3-dose series) 07/11/2023 06/13/2023 HEMOGLOBIN A1C 02/09/2025 08/11/2024, 04/26, 01/15/2024, Additional history exists CKD Surveillance: eGFR 02/14/2025 , 08/11/2024, 06/15/2024, Additional history exists FOOT EXAM 05/11/2025 05/11/2024, 01/25, 08/02/2019, Additional history exists LIPID PANEL 08/11/2025 08/11/2024, 04/26, 01/16/2024, Additional history exists HYPERTENSION ANNUAL CREATININE 08/16/2025 08/16/2024, 08/11/2024, 06/15/2024, Additional history exists HYPERTENSION ANNUAL POTASSIUM 08/16/2025 08/16/2024, 08/11/2024, 06/15/2024, Additional history exists DTAP/TDAP/TD (2 - Td or Tdap) 02/17/2027 02/17/2017 Shingrix Completed 12/31/2019, 0303/2020, 09/28/2019, Additional history exists Influenza vaccine Completed 06/19/2024, , 08/07/2022, Additional history exists Meningococcal B Aged Out No longer el igible based on patient's age to complete this topic Medical Devices Implanted Type Area Door Core Assembler Device Identifier Shelf Expiration Date Model / Serial / Lot Skin Meshed 2:1 - 154sq Cm - [id number] Implanted:Qty: 1 on 05/04/2021 by Shannon Theodore MD at [facility] Biological Tissue Right: [facility] 06/02/2024 1028-17 / [id number] / Stent Coronary Resolute Jaylen Rx 2.50 X 34mm Medtronic Inc - [id number] Implanted:Qty: 1 on 01/19/2020 by Sandy Medrano MD at [facility] Cardiac Stent N/A: Coronary [employer] [id number] 01/26/2021 [id number] 034UX / / [id number] Description:? ? Static magnetic field of 1.5 and 3 Poly only ? ? Maximum spatial gradient magnetic field of 3000 gauss/cm (30 T/m) or less ? ? Maximum MR system reported, whole body averaged specific absorption rate (RANDOLPH) of 2.0 W/kg (Normal Operating Mode) Https://www.accessdata.fda.gov/cdrh_docs/pdf16/Q496600Z.pdf aa 07-20-20 Stent Coronary Resolute Rotonda West 2.0 X 30mm Medtronic Inc - [id number] Implanted:Qty: 1 on 04/24/2020 by Sandy Medrano MD at [facility] Cardiac Stent Left: Coronary [employer] [id number] 11/15/2021 [id number] 030UX / / [id number] Description:? ? Static magnetic field of 1.5 and 3 Poly only ? ? Maximum spatial gradient magnetic field of 3000 gauss/cm (30 T/m) or less ? ? Maximum MR system reported, whole body averaged specific absorption rate (RANDOLPH) of 2.0 W/kg (Normal Operating Mode) Https://www.accessdata.fda.gov/cdr_docs/pdf16/B906395Q.pdf aa 07-20-20 Stent Drug Eluting Xience Skyp 3.00 Mm X 28 Mm - [id number] Implanted:Qty: 1 on 08/27/2022 by Roberto Almanza DO at [facility] Cardiac Stent Coronary [employer] [id number] 05/21/2024 [id number] / / [id number] Angioseal Sts Plus 6f Cl[address] [employer] - [id number] Implanted:Qty: 1 on 01/05/2021 by Otto Velázquez MD at [facility] Closure device Right: Arterial [employer] 09/25/2021 [id number] / / [id number] Device Vascular Closure Angio O Seal 6fr - [id number] Implanted:Qty: 1 on 01/29/2021 by Otto Velázquez MD at [facility] Closure device Left: Groin [employer] WENDY 09/25/2021 [id number] / / [id number] Angioseal Vip ??6f Closure [employer] - [id number] Implanted:Qty: 1 on 12/10/2021 by Otto Velázquez MD at [facility] Closure device Right: Groin [employer] 07/26/2022 [id number] / / [id number] Stent Ureteral 6x24 Ascerta [place] [employer] - [id number] Implanted:Qty: 1 on 02/09/2018 by Srikanth Luciano MD at [facility] Implant Left: Ureter [employer] 09/18/2019 [id number] / / [id number] Stent Ureteral 6x24 Ascerta [place] [employer] - [id number] Implanted:Qty: 1 on 02/09/2018 by Srikanth Lcuiano MD at [facility] Implant Right: Ureter [employer] 10/07/2019 [id number] / / [id number] Stent Ureteral Ascerta 4.8x24 [place] [employer] - [id number] Implanted:Qty: 1 on 02/23/2018 by Srikanth Luciano MD at [facility] Implant Left: Ureter [employer] 12/08/2019 [id number] / / [id number] Kit Embolization Rotonda West 34 Avm Us - [id number] Implanted:Qty: 1 on 01/29/2021 by Otto Velázquez MD at [facility] Implant Right: Brain [employer] 08/30/2023 105-710 0-080 / / [id number] Description:rt MCA Kit Embolization Rotonda West 18 Avm Us - [id number] Implanted:Qty: 1 on 01/29/2021 by Otto Velázquez MD at [facility] Implant Right: Brain [employer] 11/02/2023 105-710 0-060 / / [id number] Description:rt MCA 0.4 ml Screw Bn Prox Tenodesis Impl - [id number] Implanted:Qty: 1 on 10/05/2021 by Hung Mixon MD at [facility] Implant Left: Shoulder ARTHREX 04/25/2026 [id number]-2290 / / [id number] Paint Bank Suture 4.07ghs10.1mm Biocomposite Cls Arthrex - [id number] Implanted:Qty: 1 on 10/05/2021 by Hung Mixon MD at [facility] Implant Left: Shoulder ARTHREX 04/25/2023 AR-2324 BCCS / / [id number] Paint Bank Suture 4.75x19.1mm Swivelock Tigertape Blue Arthrex - [id number] Implanted:Qty: 1 on 10/05/2021 by Hung Mixon MD at [facility] Implant Left: Shoulder ARTHREX 05/26/2025 AR-2324 BCCTT / / [id number] Paint Bank Suture 4.67pqt72.1mm Biocomposite Cls Arthrex - [id number] Implanted:Qty: 1 on 10/05/2021 by Hung Mixon MD at [facility] Implant Left: Shoulder ARTHREX 12/24/2024 AR-2324 BCC / / [id number] Paint Bank Suture 4.94aun00.1mm Biocomposite Cls Arthrex - [id number] Implanted:Qty: 1 on 10/05/2021 by Hung Mixon MD at [facility] Implant Left: Shoulder ARTHREX 12/24/2024 AR-2324 [facility] / / [id number] Procedures Procedure Name Priority Date/Time Associated Diagnosis Comments COMPREHENSIVE METABOLIC PANEL STAT 08/16/2024 6:27 PM EDT HEMOGLOBIN A1C WITH EAG Routine 08/11/2024 1:27 PM EDT Diabetes mellitus type 2, insulin dependent (HCC) LIPID PANEL Routine 08/11/2024 1:27 PM EDT Diabetes mellitus type 2, insulin dependent (HCC) MICROALB/CREAT RATIO Routine 11/27/2018 10:09 AM EST Essential hypertension with goal blood pressure less than 130/80 Mixed hyperlipidemia Controlled type 2 diabetes mellitus with diabetic polyneuropathy, without long-term current use of insulin (HCC) Diabetes mellitus with neurological manifestations, uncontrolled (HCC) from Last 3 Months or Most Recently Relevant to Health Maintenance Results * (ABNORMAL) Comprehensive metabolic panel (08/16/2024 6:27 PM EDT) Sodium 141 136 - 145 mmol/L 08/16/2024 7:26 PM EDT [facility] Potassium 4.2 3.5 - 5.1 mmol/L 08/16/2024 7:26 PM EDT [facility] Chloride 98 98 - 107 mmol/L 08/16/2024 7:26 PM EDT [facility] CO2 28 22 - 29 mmol/L 08/16/2024 7:26 PM EDT [facility] Glucose 161(H) 70 - 99 mg/dL 08/16/2024 7:26 PM EDT [facility] BUN 23 8 - 23 mg/dL 08/16/2024 7:26 PM EDT [facility] Creatinine, S 1.15 0.70 - 1.20 mg/dL 08/16/2024 7:26 PM EDT [facility] Protein, Total 6.6 6.4 - 8.3 g/dL 08/16/2024 7:26 PM EDT [facility] Albumin, S 4.1 3.5 - 5.2 g/dL 08/16/2024 7:26 PM EDT [facility] Calcium, Total 9.8 8.8 - 10.2 mg/dL 08/16/2024 7:26 PM EDT [facility] Birirubin, Total 0.3 0.0 - 1.2 mg/dL 08/16/2024 7:26 PM EDT [facility] Alkaline Phosphatase 95 40 - 129 IU/L 08/16/2024 7:26 PM EDT [facility] AST (SGOT) 9 0 - 40 IU/L 08/16/2024 7:26 PM EDT [facility] ALT (SGPT) 6 0 - 41 IU/L 08/16/2024 7:26 PM EDT [facility] Globulin 2.5 2.4 - 4.0 g/dL 08/16/2024 7:26 PM EDT [facility] Anion Gap 19 12 - 20 08/16/2024 7:26 PM EDT [facility] eGFR (No Race) 73 >59 ml/min/1.7 3 m2 08/16/2024 7:26 PM EDT [facility] Blood VENOUS BLOOD SPECIMEN / Unknown Venipuncture / Unknown 08/16/2024 6:27 PM EDT 08/16/2024 6:34 PM EDT us Hugo Engel MD BLOOD ORDERABLES Final Result [facility] [address] [phone] * (ABNORMAL) Hemoglobin A1c w/EAG calc.(Best Practice (08/11/2024 1:27 PM EDT) HBA1C 6.1(H) 4.8 - 5.6 % 08/11/2024 10:00 PM EDT [facility] Estimated Average Glucose 128(H) <115 mg/dL 08/11/2024 10:00 PM EDT [facility] Blood VENOUS BLOOD SPECIMEN / Unknown Venipuncture / Unknown 08/11/2024 1:27 PM EDT 08/11/2024 1:27 PM EDT Narrative [facility] - 08/11/2024 10:00 PM EDT Prediabetes 5.7% to 6.4% Diabetes ?>/=6.5% Per ADA recommendations Disease processes which shorten erythrocyte half life will decrease HbA1c values. ??Some hemoglobin variants may interfere with this method. ??Interpret result accordingly. us Lissette Garcia MD BLOOD ORDERABLES Fin al Result [facility] [address] [place] [address], [facility] [phone] * LIPID PANEL (08/11/2024 1:27 PM EDT) Cholesterol, Total 139 See Comment mg/dL 08/11/2024 10:10 PM EDT [facility] Comment: Interpretive Values: Desirable: ? <200 mg/dL Borderline High: 200-239 mg/dL High: ?>gr=504 mg/dL Triglycerides 140 See Comment mg/dL 08/11/2024 10:10 PM EDT [facility] Comment: Interpretive Values: Normal: ?<150 mg/dL Borderline High: 150-199 mg/dL High: ?200-499 mg/dL Very High: ? >px=579 mg/dL HDL Cholesterol 40 See Comment mg/dL 08/11/2024 10:10 PM EDT [facility] Comment: Interpretive Values: Males: ?> or = 39 mg/dL Females: ??> or = 49 mg/dL LDL 71 See Comment mg/dL 08/11/2024 10:10 PM EDT [facility] Cholesterol/HDL Ratio 3.5 0.0 - 5.5 Ratio 08/11/2024 10:10 PM EDT [facility] Non-HDL Cholesterol 99 <130 mg/dL 08/11/2024 10:10 PM EDT [facility] Comment: Interpretive Values: Desirable: ? <130 mg/dL Above Desirable: 130-159 mg/dL Borderline High: 160-189 mg/dL High: ?190-219 mg/dL Very High: ? >cp=535 mg/dL Blood VENOUS BLOOD SPECIMEN / Unknown Venipuncture / Unknown 08/11/2024 1:27 PM EDT 08/11/2024 1:27 PM EDT Lissette Garcia MD BLOOD ORDERABLES Fin al Result Performing Organization Address City/State/[facility] Co de Phone Number [facility] [address] [place] [address], [facility] [phone] * (ABNORMAL) MICROALBUMIN / CREATININE URINE RATIO (11/27/2018 10:09 AM EST) Creatinine, Random Urine 137.90(A ) REFERENCE RANGE NOT ESTABLISHED mg/dL 11/27/2018 10:09 AM EST [facility] MICROALBUMIN, UR <1.2(A) REFERENCE RANGE NOT ESTABLISHED mg/dL 11/27/2018 10:09 AM EST [facility] Microalb/Creat Ratio <30 ug/mg Creat 11/27/2018 10:09 AM EST [facility] Comment: The [place] Diabetes Association (ADA) (Diabetes Care26:S94-S98,2003) defines abnormalities in albumin excretion as follows: ? Category ?Result(ug/mg Creat) Normal ?<30 Microalbuminuria ? 30-299 Clinical Albuminuria ?? > or = 300 ? The ADA recommends that at least two of the three specimens collected within a 3-6 month period be abnormal before considering a patient to be within a diagnostic category. Urine specimen (specimen) URINE / Unknown 11/27/2018 10:09 AM EST 11/27/2018 2:31 PM EST us Paxton Adkins MD URINE ORDERABLES Final Result Performing Organization Address City/State/[facility] Co de Phone Number [facility] [address] [place] [address], [facility] [phone] from Last 3 Months or Most Recently Relevant to Health Maintenance Insurance WELLCARE /MDCR ADV HMO PPO WELL[employer]ARE /MDCR ADV HMO PPO WELL[employer]ARE /MDCR ADV HMO PPO Advance Directives For more information, please contact: [phone] * Full Code (Latest Code Status on File) Date Activated Date Inactivated Comments 05/17/2024 8:46 PM 05/21/2024 2:47 PM Question Answer Comments Status: Code Discussion Completed Legally recognized decision maker: Patient/Self * Full Code Date Activated Date Inactivated Comments 01/15/2024 11:33 PM 01/17/2024 7:57 PM Question Answer Comments Status: Code Discussion Completed Legally recognized decision maker: Patient/Self * Full Code Date Activated Date Inactivated Comments 08/27/2022 7:08 AM 08/27/2022 8:29 PM Question Answer Comments Reason Pending: Pending scheduled discussion wit h decision maker Plan to Address: Will Reassess * Full Code Date Activated Date Inactivated Comments 12/10/2021 8:35 AM 12/10/2021 4:23 PM Question Answer Comments Status: Code Discussion Completed Legally recognized decision maker: Patient/Self * Full Code Date Activated Date Inactivated Comments 10/21/2021 3:53 PM 12/10/2021 8:13 AM Question Answer Comments Status: Code Discussion Completed Legally recognized decision maker: Patient/Self Care Teams Hair Tinter Relationship Specialty Start Date End Date Renetta Griggs, ETHNIC ORIGINS TEACHER [address] [phone] PCP - General Nurse Practitioner 03/30/24 [facility] (p)[phone] (f)[phone] Durable Medical Equipment 10/24/16
--- OUTSIDE RECORDS SUMMARY | 2025-02-10 22:19 | XMS_ITS ---
Author Organization [facility], [facility] Address [address] [place] [address] Care Team Providers Care Facility Maintenance Technician Name Role Phone Indu STEPHENS, Renetta Unavailable Un available Rick Orozco Unavailable [phone] Encounters Encounter Location Date Provider Diagnosis [facility] [place], [facility] [address] [place] [address] 01/02/2024 Rick Orozco Plan Of Treatment No Information Progress Notes * Bulmaro GARRIDOoDOB: [birth year] (59 yo M)Acc No.[id number]:01/02/2024 Progress Notes Patient:?ADITYA Justin Appointment Provider:?Rick Orozco DO :1965???Age:58 Y???Sex:Male Artie e:01/02/2024 Address:[address] [place], [place] [address]deepa [facility] Subjective: * Chief Complaints: * ??? * [...] of Barak Orozco DO on 02/10/2025 at 09:48 PM EDT Sign off status: Pending * Appointment Provider:?DO Rashaun Cisneros te:?01/02/2024 Generated for Efrain yusuf/Lainey/Arikitting on:?02/10/2025 09:48 PM EDT History and Physical Notes * [...]
--- OUTSIDE RECORDS SUMMARY | 2025-02-10 22:19 | XMS_ITS | CCD ---
Author Name Hilario MILNER, Dr Ritesh hernandez Address [address] [place] [address] Phone Organization [facility] Phone Care Team Providers Care Toe Stapler Name Role Phone Alycia Weaver NP Primary Care Provider Unavailabl e Unavailable Chronic Care Management Unavaila ble Summary Purpose DataExchange Insurance Providers Payer name Policy type / Coverage type Covered democrat ID Effective Begin Date Effective End Date MEDIC[place] [id number] Unknown Unknown NO COPAY HOLD [id number] Unknown Unknown Family History Family History data not found Problems Condition Codes Effective Dates Condition St atus Bipolar disorder ICD-10: F31.9 ICD-9: 296.80 06/10/2023 Active CAD (coronary artery disease) ICD-10: I2 5.10 ICD-9: 414.00 06/10/2023 Active Chronic obstructive pulmonar y disease, unspecified ICD-10: J44.9 ICD-9: 496 09/21/2024 Active HTN (hypertension) ICD-10: I10 ICD-9: 401.9 06/10/2023 Active Type 2 diabetes mellitus wit hout complications ICD-10: E11.9 ICD-9: 250.00 06/10/2023 Active Seizure disorder ICD-10: G40.909 ICD-9: 345.90 08/25/2024 Active Chronic obstructive pulmonar y disease, unspecified ICD-10: J44.9 08/25/2024 Active Heart failure, unspecified ICD-10: I50.9 08/25/2024 Active Ileus, unspecified ICD-10: K56.7 08/25/2024 Active Major depressive disorder, recurrent, severe with psychotic symptoms ICD-10: F33.3 08/25/2024 Active Non-pressure chronic ulcer o f other part of right foot with fat layer exposed ICD-10: L97.512 08/25/2024 Active Other pancytopenia ICD-10: D61.818 08/25/2024 Active Other psychoactive substance use, unspecified with psychoactive substance-induced mood disorder ICD-10: F19.94 08/25/2024 Active Other psychotic disorder not due to a substance or known physiological condition ICD-10: F28 08/25/2024 Active Polyneuropathy in diseases classified elsewhere ICD-10: G63 08/25/2024 Active Thoracic aortic aneurysm, wi thout rupture ICD-10: I71.2 08/25/2024 Active Type 2 diabetes mellitus wit hout complications ICD-10: E11.9 08/25/2024 Active Unspecified coma ICD-10: R40.20 08/25/2024 Active At high risk for falls ICD-10: Z91.81 ICD-9: V15.88 04/02/2024 Active 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 ICD-9: 278.00 12/09/2023 Active Frailty ICD-10: R54 ICD-9: 797 04/02/2024 Active Gout ICD-10: M10.9 ICD-9: 274.9 06/10/2023 Active H/O heart artery stent ICD-10: Z95.5 ICD-9: V45.82 06/10/2023 Active Hemiplegia ICD-10: G81.90 ICD-9: 342.90 12/09/2023 Active HLD (hyperlipidemia) ICD-10: E78.5 ICD-9: 272.4 06/10/2023 Active Hx of syncope ICD-10: Z87.898 [...] Start Date Stop Date Status Fill Instructions quetiapine 300 mg tablet RxNorm: 849333 Take 1 Tablet(s) Oral every night at bedtime 08/25/20 Active benztropine 0.5 mg tablet RxNorm: 778346 Take 1 Tablet(s) Oral every day 08/25/20 Active buspirone 15 mg tablet RxNorm: 734698 Take 1 Tablet(s) Oral two times a day 08/25/20 Active trazodone 150 mg tablet RxNorm: 883440 Take 1 Tablet(s) Oral every night at bedtime 08/25/20 Active nitroglycerin 0.4 mg sublingual tablet RxNorm: 257691 Take 1 Tablet(s) Sublingual every 5 minutes as needed for chest pain. Do not exceed 3 doses in 15 minutes 04/02/20 24 Inactive albuterol sulfate HFA 90 mcg/actuation aerosol inhaler RxNorm: 6612776 Administer 2 Puff(s) Inhalation every 6 hours as needed 04/02/20 Inactive Toujeo Max U-300 SoloStar 300 unit/mL (3 mL) subcutaneous insulin pen RxNorm: 2676020 Administer 13 Unit(s) Subcutaneous two times a day 13 units in the morning and 13 units in the evening 04/02/20 24 No Stop Date Active Flonase Allergy Relief 50 mcg/actuation nasal spray,suspension RxNorm: 7923146 [place] 2 [place] Nasal every day 04/02/20 24 Inactive isosorbide mononitrate ER 30 mg tablet,extended release 24 hr RxNorm: 243070 Take 1 Tablet(s) Oral every morning 04/02/20 Active Ozempic 2 mg/dose (8 mg/3 mL) subcutaneous pen injector RxNorm: 2898777 Administer 2 Milligram(s) Subcutaneous once a week 04/02/20 No Stop Date Active duloxetine 30 mg capsule,delayed release RxNorm: 475691 Take 3 Capsule(s) Oral once daily 04/02/20 Active olanzapine 7.5 mg tablet RxNorm: 693628 Take 1 Tablet(s) Oral every night at bedtime 04/02/20 Active metformin 1,000 mg tablet RxNorm: 364416 Take 1 Tablet(s) Oral two times a day 04/02/20 025 Active allopurinol 100 mg tablet RxNorm: 209885 Take 1 Tablet(s) Oral 2 times a week 04/02/20 025 Active loratadine 10 mg tablet RxNorm: 782071 Take 1 Tablet(s) Oral every day 04/02/20 025 Active lisinopril 20 mg tablet RxNorm: 695435 Take 1 Tablet(s) Oral every day 04/02/20 025 Active buspirone 10 mg tablet RxNorm: 076078 Take 1 Tablet(s) Oral two times a day 04/02/20 24 024 Inactive lisinopril 20 mg tablet RxNorm: 246843 Take 1 Tablet(s) Oral every day 12/09/19 24 024 Inactive aspirin 81 mg tablet,delayed release RxNorm: 025443 Take 1 Tablet(s) Oral every day 06/10/20 23 023 Inactive ranolazine ER 500 mg tablet,extended release,12 hr RxNorm: 917443 Take 1 Tablet(s) Oral two times a day 06/10/20 No Stop Date Active furosemide 20 mg tablet RxNorm: 029515 Take 1 Tablet(s) Oral every day 06/10/20 No Stop Date Active hydrochlorothiazide 12.5 mg tablet RxNorm: 089690 Take 1 Tablet(s) Oral every day 06/10/20 No Stop Date Active pantoprazole 40 mg tablet,delayed release RxNorm: 087409 Take 1 Tablet(s) Oral every morning 06/10/20 No Stop Date Active divalproex 500 mg tablet,delayed release RxNorm: 5371395 Take 1 Tablet(s) Oral two times a day for mood 06/10/20 No Stop Date Active atorvastatin 40 mg tablet RxNorm: 760263 Take 1 Tablet(s) Oral every evening 06/10/20 023 Inactive gabapentin 600 mg tablet RxNorm: 224206 Take 1 Tablet(s) Oral two times a day 06/10/20 No Stop Date Active citalopram 20 mg tablet RxNorm: 451233 Take 1 Tablet(s) Oral every day 06/10/20 No Stop Date Active clopidogrel 75 mg tablet RxNorm: 713596 Take 1 Tablet(s) Oral every day 06/10/20 No Stop Date Active hydroxyzine HCl 25 mg tablet RxNorm: 360784 Take 1 Tablet(s) Oral two times a day as needed for anxiety 06/10/20 No Stop Date Active buspirone 15 mg tablet RxNorm: 788642 Take 1 Tablet(s) Oral two times a day for anxiety 06/10/20 024 Inactive Ozempic 1 mg/dose (4 mg/3 mL) subcutaneous pen injector RxNorm: 3341460 Inject 1 Milligram(s) Subcutaneous once a week 06/10/20 024 Inactive duloxetine 60 mg capsule,delayed release RxNorm: 802658 Take 1 Capsule(s) Oral every day 06/10/20 024 Inactive metformin 500 mg tablet RxNorm: 942247 Take 1 Tablet(s) Oral two times a day 06/10/20 023 Inactive quetiapine 400 mg tablet RxNorm: 026274 Take 1 Tablet(s) Oral every evening for sleep and pspychosis 06/10/20 024 Inactive lisinopril 10 mg tablet RxNorm: 111380 Take 1 Tablet(s) Oral every day 06/10/20 Inactive Toujeo SoloStar U-300 Insulin 300 unit/mL (1.5 mL) subcutaneous pen RxNorm: 7738079 Administer 60 Unit(s) Subcutaneous every morning and 30 Units every evening 06/10/20 024 Inactive allopurinol 100 mg tablet RxNorm: 198647 Take 1 Tablet(s) Oral every day 06/10/20 024 Inactive Toujeo Max U-300 SoloStar subcutaneous RxNorm: 7835987 subcutaneous 06/10/20 023 Inactive Medication Administered No Medication Administered data Procedures Procedure Codes Date Most recent A1c < 7.0% CPT-4: 3044F Screening for clinical depre ssion is positive and follow up plan documented CPT-4: G8431 06/17/2024 F5Z-Kwwlbvrzndzgzzd CPT-4: 41970 Unknown S3V-Xnpqucilcmhfewf CPT-4: 93254 Unknown R1M-Ztlsgjbnahohvei CPT-4: 40106 Unknown F5N-Btgfnojqhoewibc CPT-4: 45895 Unknown Fecal Occult Blood Test (FOBT) Screening CPT-4: G0328 Unknown Reason For Visit Reason For Visit Effective Dates Notes established patient visit 09/21/2024 Plan of Care Planned Activity Notes Codes Status Date Patient Education: Patient M edication Summary Completed 09/21/2024 Appointment: Gian Rich WPtel: [address] [place] [address] E180 08/25/2024 Appointment: Karen Calero WPtel: [address] [place] [address] [address]180 06/17/2024 Appointment: Karen Calero WPtel: [address] [place] [address] E180 04/02/2024 Appointment: Marivel Lloyd WPtel: [address] [address] [place] E[address] 12/09/2023 Appointment: Marivel Lloyd WPtel: [address] 09/24/2023 Appointment: Marivel Lloyd WPtel: [address] [place] [address] [place] N180 06/10/2023 Appointment: Marivel Lloyd WPtel: [address] [place] [address] N180 05/15/2023 Referral: Housing Coordination Referral Initi ated Referral: Pending Medical Re cords Information faxed MR request Order Faxed Medical Equipment No Medical Equipment data Health [...]
--- OUTSIDE RECORDS SUMMARY | 2025-02-10 22:19 | XMS_ITS | CCD ---
Author Name Hilario MILNER, Dr Ritesh hernandez Address [address] [facility] [address] [place] [address] Phone Organization [facility] Phone Care Team Providers Care Storekeeper Steward Name Role Phone Owen LUCAS, Alycia Primary Care Provider Unavailabl e Unavailable Chronic Care Management Unavaila ble Summary Purpose DataExchange Insurance Providers Payer name Policy type / Coverage type Covered libertarian ID Effective Begin Date Effective End Date MEDICARE [place]ARE [place] [id number] Unknown Unknown NO COPAY HOLD [id number] Unknown Unknown Family History Family History data not found Problems Condition Codes Effective Dates Condition St atus CAD (coronary artery disease) ICD-10: I2 5.10 ICD-9: 414.00 06/10/2023 Active HTN (hypertension) ICD-10: I10 ICD-9: 401.9 06/10/2023 Active Seizure disorder ICD-10: G40.909 ICD-9: 345.90 08/25/2024 Active Type 2 diabetes mellitus wit hout complications ICD-10: E11.9 ICD-9: 250.00 06/10/2023 Active Bipolar disorder ICD-10: F31.9 ICD-9: 296.80 06/10/2023 Active Chronic obstructive pulmonar y disease, [...] Fill Instructions quetiapine 300 mg tablet RxNorm: 950761 Take 1 Tablet(s) Oral every night at bedtime 08/25/20 Active benztropine 0.5 mg tablet RxNorm: 169053 Take 1 Tablet(s) Oral every day 08/25/20 Active buspirone 15 mg tablet RxNorm: 549499 Take 1 Tablet(s) Oral two times a day 08/25/20 Active trazodone 150 mg tablet RxNorm: 570400 Take 1 Tablet(s) Oral every night at bedtime 08/25/20 Active nitroglycerin 0.4 mg sublingual tablet RxNorm: 697191 Take 1 Tablet(s) Sublingual every 5 minutes as needed for chest pain. Do not exceed 3 doses in 15 minutes 04/02/20 Inactive albuterol sulfate HFA 90 mcg/actuation aerosol inhaler RxNorm: 2899319 Administer 2 Puff(s) Inhalation every 6 hours as needed 04/02/20 Inactive Toujeo Max U-300 SoloStar 300 unit/mL (3 mL) subcutaneous insulin pen RxNorm: 9100611 Administer 13 Unit(s) Subcutaneous two times a day 13 units in the morning and 13 units in the evening 04/02/20 No Stop Date Active Flonase Allergy Relief 50 mcg/actuation nasal spray,suspension RxNorm: 4036182 [place] 2 [place] Nasal every day 04/02/20 24 024 Inactive isosorbide mononitrate ER 30 mg tablet,extended release 24 hr RxNorm: 555661 Take 1 Tablet(s) Oral every morning 04/02/20 025 Active Ozempic 2 mg/dose (8 mg/3 mL) subcutaneous pen injector RxNorm: 7986805 Administer 2 Milligram(s) Subcutaneous once a week 04/02/20 24 No Stop Date Active duloxetine 30 mg capsule,delayed release RxNorm: 792895 Take 3 Capsule(s) Oral once daily 04/02/20 025 Active olanzapine 7.5 mg tablet RxNorm: 294227 Take 1 Tablet(s) Oral every night at bedtime 04/02/20 Active metformin 1,000 mg tablet RxNorm: 977847 Take 1 Tablet(s) Oral two times a day 04/02/20 025 Active allopurinol 100 mg tablet RxNorm: 022551 Take 1 Tablet(s) Oral 2 times a week 04/02/20 025 Active loratadine 10 mg tablet RxNorm: 625721 Take 1 Tablet(s) Oral every day 04/02/20 025 Active lisinopril 20 mg tablet RxNorm: 447990 Take 1 Tablet(s) Oral every day 04/02/20 025 Active buspirone 10 mg tablet RxNorm: 167493 Take 1 Tablet(s) Oral two times a day 04/02/20 24 024 Inactive lisinopril 20 mg tablet RxNorm: 247940 Take 1 Tablet(s) Oral every day 12/09/19 24 024 Inactive aspirin 81 mg tablet,delayed release RxNorm: 037457 Take 1 Tablet(s) Oral every day 06/10/20 23 023 Inactive ranolazine ER 500 mg tablet,extended release,12 hr RxNorm: 948911 Take 1 Tablet(s) Oral two times a day 06/10/20 23 No Stop Date Active furosemide 20 mg tablet RxNorm: 941332 Take 1 Tablet(s) Oral every day 08/15/20 23 No Stop Date Active hydrochlorothiazide 12.5 mg tablet RxNorm: 121945 Take 1 Tablet(s) Oral every day 06/10/20 No Stop Date Active pantoprazole 40 mg tablet,delayed release RxNorm: 450398 Take 1 Tablet(s) Oral every morning 06/10/20 No Stop Date Active divalproex 500 mg tablet,delayed release RxNorm: 4159878 Take 1 Tablet(s) Oral two times a day for mood 06/10/20 No Stop Date Active atorvastatin 40 mg tablet RxNorm: 417135 Take 1 Tablet(s) Oral every evening 06/10/20 023 Inactive gabapentin 600 mg tablet RxNorm: 636685 Take 1 Tablet(s) Oral two times a day 06/10/20 No Stop Date Active citalopram 20 mg tablet RxNorm: 912125 Take 1 Tablet(s) Oral every day 06/10/20 No Stop Date Active clopidogrel 75 mg tablet RxNorm: 476248 Take 1 Tablet(s) Oral every day 06/10/20 No Stop Date Active hydroxyzine HCl 25 mg tablet RxNorm: 270173 Take 1 Tablet(s) Oral two times a day as needed for anxiety 06/10/20 No Stop Date Active buspirone 15 mg tablet RxNorm: 488506 Take 1 Tablet(s) Oral two times a day for anxiety 06/10/20 024 Inactive Ozempic 1 mg/dose (4 mg/3 mL) subcutaneous pen injector RxNorm: 5431596 Inject 1 Milligram(s) Subcutaneous once a week 06/10/20 024 Inactive duloxetine 60 mg capsule,delayed release RxNorm: 971756 Take 1 Capsule(s) Oral every day 06/10/20 024 Inactive metformin 500 mg tablet RxNorm: 698435 Take 1 Tablet(s) Oral two times a day 06/10/20 023 Inactive quetiapine 400 mg tablet RxNorm: 247519 Take 1 Tablet(s) Oral every evening for sleep and pspychosis 06/10/20 024 Inactive lisinopril 10 mg tablet RxNorm: 745599 Take 1 Tablet(s) Oral every day 06/10/20 024 Inactive Toujeo SoloStar U-300 Insulin 300 unit/mL (1.5 mL) subcutaneous pen RxNorm: 3922355 Administer 60 Unit(s) Subcutaneous every morning and 30 Units every evening 06/10/20 024 Inactive allopurinol 100 mg tablet RxNorm: 060899 Take 1 Tablet(s) Oral every day 06/10/20 024 Inactive Toujeo Max U-300 SoloStar subcutaneous RxNorm: 8954430 subcutaneous 06/10/20 023 Inactive Medication Administered No Medication Administered data Procedures Procedure Codes Date Screening for clinical depre ssion is positive and follow up plan documented CPT-4: G8431 06/17/2024 S2X-Dqyqtexdiershpr CPT-4: 45020 Unknown N9L-Crnujysllowwmdl CPT-4: 89206 Unknown H4N-Htvjbhveiyoxroj CPT-4: 62568 Unknown Z4Y-Mlzuginesuootna CPT-4: 16575 Unknown Fecal Occult Blood Test (FOBT) Screening CPT-4: G0328 Unknown Reason For Visit No Reason For Visit data Plan of Care Planned Activity Notes Codes Status Date Patient Education: Patient M edication Summary Completed 08/27/2024 Appointment: Gian Rich WPtel: [address] [place] [address] E180 08/25/2024 Appointment: Karen Calero WPtel: [address] [place] [address] E180 06/17/2024 Appointment: Karen Calero WPtel: [address] [place] [address] E180 04/02/2024 Appointment: Marivel Lloyd WPtel: [address] [place] [address] E180 12/09/2023 Appointment: Marivel Lloyd WPtel: [address] [place] [address] E180 09/24/2023 Appointment: Marivel Lloyd WPtel: [address] [place] [address] N180 06/10/2023 Appointment: Marivel Lloyd WPtel: [address] [place] [address] N180 05/15/2023 Referral: Housing Coordination Referral Initi [...]
--- OUTSIDE RECORDS SUMMARY | 2025-02-10 22:19 | XMS_ITS | CCD ---
Author Name Hilario MILNER, Dr Ritesh hernandez Address [address] [place] [address] Phone Organization [email or web address] Phone Care Team Providers Care Frame Wirer Name Role Phone Alycia Weaver NP Primary Care Provider Unavailabl e Unavailable Chronic Care Management Unavaila ble Summary Purpose DataExchange Insurance Providers Payer name Policy type / Coverage type Covered libertarian ID Effective Begin Date Effective End Date MEDICARE [place] [id number] Unknown Unknown NO COPAY HOLD [id number] Unknown Unknown Family History Family History data not found Problems Condition Codes Effective Dates Condition St atus Bipolar disorder ICD-10: F31.9 ICD-9: 296.80 06/10/2023 Active CAD (coronary artery disease) ICD-10: I2 5.10 ICD-9: 414.00 06/10/2023 Active Chronic obstructive pulmonar y disease, unspecified ICD-10: J44.9 08/25/2024 Active DM2 (diabetes mellitus, type 2) ICD-10: E11.9 ICD-9: 250.00 06/10/2023 Active Heart failure, unspecified ICD-10: I50.9 08/25/2024 Active HTN (hypertension) ICD-10: I10 ICD-9: 401.9 06/10/2023 Active Ileus, unspecified ICD-10: K56.7 08/25/2024 Active [...] diseases classified elsewhere ICD-10: G63 08/25/2024 Active Seizure disorder ICD-10: G40.909 ICD-9: 345.90 08/25/2024 Active Thoracic aortic aneurysm, wi thout [...] Fill Instructions quetiapine 300 mg tablet RxNorm: 308953 Take 1 Tablet(s) Oral every night at bedtime 08/25/20 Active benztropine 0.5 mg tablet RxNorm: 867134 Take 1 Tablet(s) Oral every day 08/25/20 Active buspirone 15 mg tablet RxNorm: 464569 Take 1 Tablet(s) Oral two times a day 08/25/20 Active trazodone 150 mg tablet RxNorm: 670072 Take 1 Tablet(s) Oral every night at bedtime 08/25/20 Active nitroglycerin 0.4 mg sublingual tablet RxNorm: 610224 Take 1 Tablet(s) Sublingual every 5 minutes as needed for chest pain. Do not exceed 3 doses in 15 minutes 04/02/20 024 Inactive albuterol sulfate HFA 90 mcg/actuation aerosol inhaler RxNorm: 2622056 Administer 2 Puff(s) Inhalation every 6 hours as needed 04/02/20 024 Inactive Toujeo Max U-300 SoloStar 300 unit/mL (3 mL) subcutaneous insulin pen RxNorm: 0452057 Administer 13 Unit(s) Subcutaneous two times a day 13 units in the morning and 13 units in the evening 04/02/20 No Stop Date Active Flonase Allergy Relief 50 mcg/actuation nasal spray,suspension RxNorm: 2780697 Gardena 2 Gardena Nasal every day 04/02/20 024 Inactive isosorbide mononitrate ER 30 mg tablet,extended release 24 hr RxNorm: 229534 Take 1 Tablet(s) Oral every morning 04/02/20 Active Ozempic 2 mg/dose (8 mg/3 mL) subcutaneous pen injector RxNorm: 7540149 Administer 2 Milligram(s) Subcutaneous once a week 04/02/20 24 No Stop Date Active duloxetine 30 mg capsule,delayed release RxNorm: 691014 Take 3 Capsule(s) Oral once daily 04/02/20 025 Active olanzapine 7.5 mg tablet RxNorm: 580514 Take 1 Tablet(s) Oral every night at bedtime 04/02/20 Active metformin 1,000 mg tablet RxNorm: 391755 Take 1 Tablet(s) Oral two times a day 04/02/20 025 Active allopurinol 100 mg tablet RxNorm: 398151 Take 1 Tablet(s) Oral 2 times a week 04/02/20 025 Active loratadine 10 mg tablet RxNorm: 929810 Take 1 Tablet(s) Oral every day 04/02/20 025 Active lisinopril 20 mg tablet RxNorm: 260210 Take 1 Tablet(s) Oral every day 04/02/20 025 Active buspirone 10 mg tablet RxNorm: 844771 Take 1 Tablet(s) Oral two times a day 04/02/20 24 024 Inactive lisinopril 20 mg tablet RxNorm: 187719 Take 1 Tablet(s) Oral every day 12/09/19 24 024 Inactive aspirin 81 mg tablet,delayed release RxNorm: 072291 Take 1 Tablet(s) Oral every day 06/10/20 23 023 Inactive ranolazine ER 500 mg tablet,extended release,12 hr RxNorm: 604090 Take 1 Tablet(s) Oral two times a day 06/10/20 23 No Stop Date Active furosemide 20 mg tablet RxNorm: 723255 Take 1 Tablet(s) Oral every day 06/10/20 No Stop Date Active hydrochlorothiazide 12.5 mg tablet RxNorm: 494474 Take 1 Tablet(s) Oral every day 06/10/20 No Stop Date Active pantoprazole 40 mg tablet,delayed release RxNorm: 367331 Take 1 Tablet(s) Oral every morning 06/10/20 No Stop Date Active divalproex 500 mg tablet,delayed release RxNorm: 2399459 Take 1 Tablet(s) Oral two times a day for mood 06/10/20 No Stop Date Active atorvastatin 40 mg tablet RxNorm: 530990 Take 1 Tablet(s) Oral every evening 06/10/20 023 Inactive gabapentin 600 mg tablet RxNorm: 641332 Take 1 Tablet(s) Oral two times a day 06/10/20 No Stop Date Active citalopram 20 mg tablet RxNorm: 375007 Take 1 Tablet(s) Oral every day 06/10/20 No Stop Date Active clopidogrel 75 mg tablet RxNorm: 594218 Take 1 Tablet(s) Oral every day 06/10/20 No Stop Date Active hydroxyzine HCl 25 mg tablet RxNorm: 235397 Take 1 Tablet(s) Oral two times a day as needed for anxiety 06/10/20 No Stop Date Active buspirone 15 mg tablet RxNorm: 354790 Take 1 Tablet(s) Oral two times a day for anxiety 06/10/20 024 Inactive Ozempic 1 mg/dose (4 mg/3 mL) subcutaneous pen injector RxNorm: 6083801 Inject 1 Milligram(s) Subcutaneous once a week 06/10/20 024 Inactive duloxetine 60 mg capsule,delayed release RxNorm: 076433 Take 1 Capsule(s) Oral every day 06/10/20 024 Inactive metformin 500 mg tablet RxNorm: 542158 Take 1 Tablet(s) Oral two times a day 06/10/20 023 Inactive quetiapine 400 mg tablet RxNorm: 334536 Take 1 Tablet(s) Oral every evening for sleep and pspychosis 06/10/20 024 Inactive lisinopril 10 mg tablet RxNorm: 650995 Take 1 Tablet(s) Oral every day 06/10/20 024 Inactive Toujeo SoloStar U-300 Insulin 300 unit/mL (1.5 mL) subcutaneous pen RxNorm: 7184767 Administer 60 Unit(s) Subcutaneous every morning and 30 Units every evening 06/10/20 23 024 Inactive allopurinol 100 mg tablet RxNorm: 780175 Take 1 Tablet(s) Oral every day 06/10/20 23 024 Inactive Toujeo Max U-300 SoloStar subcutaneous RxNorm: 2501741 subcutaneous 06/10/20 023 Inactive Medication Administered No Medication Administered data Results Observation Observation Code Item Item Code Result Date Service Location COMPLETE CBC W/ DIFF WBC 55631 WBC 6690-2 6.2 K/ul 08/26/20 24 [facility] [address] [place] [address] COMPLETE CBC W/ DIFF WBC 69723 RBC 789-8 4.60 M/uL 08/26/20 24 [facility] [address] [place] [address] 45333 COMPLETE CBC W/ DIFF WBC 45005 Hemoglobin 718-7 14.3 g/dL 08/26/20 24 [facility] [address] [place] [address] 34351 COMPLETE CBC W/ DIFF WBC 31966 Hematocrit 4544-3 41.9 % 08/26/20 24 [facility] [address] [place] [address] 61095 COMPLETE CBC W/ DIFF WBC 64411 MCV 787-2 91.0 fL 08/26/20 24 [facility] [address] [place] [address] 87863 COMPLETE CBC W/ DIFF WBC 38537 MCH 785-6 31.0 pg 08/26/20 24 [facility] [address] [place] [address] 23103 COMPLETE CBC W/ DIFF WBC 33665 MCHC 786-4 34.1 g/dL 08/26/20 24 [facility] [address] [place] [address] 58630 COMPLETE CBC W/ DIFF WBC 33478 RDW 788-0 16.4 % 08/26/20 24 [facility] [address] [place] [address] 95625 COMPLETE CBC W/ DIFF WBC 99240 Platelet Count 777-3 357 K/uL 08/26/20 24 [facility] [address] [place] [address] 33632 COMPLETE CBC W/ DIFF WBC 12266 MPV 38495-5 6.7 fL 08/26/20 24 [facility] [address] [place] [address] COMPLETE CBC W/ DIFF WBC 40379 Neutrophils % 770-8 41.5 % 08/26/20 24 [facility] [address] [place] [address] COMPLETE CBC W/ DIFF WBC 01273 Lymphocytes % 736-9 38.6 % 08/26/20 24 [facility] [address] [place] [address] COMPLETE CBC W/ DIFF WBC 46881 Monocytes % 5905-5 10.4 % 08/26/20 24 [facility] [address] [place] [address] COMPLETE CBC W/ DIFF WBC 40714 Eosinophils % 713-8 8.6 % 08/26/20 24 [facility] [address] [place] [address] COMPLETE CBC W/ DIFF WBC 60784 Basophils% 706-2 0.9 % 08/26/20 24 [facility] [address] [place] [address] COMPLETE CBC W/ DIFF WBC 89263 Absolute Neutrophil 751-8 2573 /ul 08/26/20 24 [facility] [address] [place] [address] COMPLETE CBC W/ DIFF WBC 53720 Absolute Lymphocyte 77054-3 2393 /ul 08/26/20 24 [facility] [address] [place] [address] COMPLETE CBC W/ DIFF WBC 27990 Absolute Monocyte 742-7 645 /ul 08/26/20 24 [facility] [address] [place] [address] COMPLETE CBC W/ DIFF WBC 33066 Absolute Eosinophil 711-2 533 /ul 08/26/20 24 [facility] [address] [place] [address] COMPLETE CBC W/ DIFF WBC 02937 Absolute Basophil 704-7 56 /ul 08/26/20 24 [facility] [address] [place] [address] [id number] OBIN 4548-4 Glyco HGB A1C 72561-7 6.1 % 08/26/20 24 [facility] [address] [place] [address] [id number] OBIN 4548-4 eAG 56675-5 128 mg/dL 08/26/20 24 [facility] [address] [place] [address] CHEM 14 (METABOLIC PANEL) 91502 Glucose 2345-7 99 mg/dL 08/26/20 24 [facility] [address] [place] [address] CHEM 14 (METABOLIC PANEL) 85007 BUN 3094-0 9 mg/dL 08/26/20 24 [facility] [address] [place] [address] CHEM 14 (METABOLIC PANEL) 68639 Creatinine 2160-0 0.9 mg/dL 08/26/20 24 [facility] [address] [place] [address] CHEM 14 (METABOLIC PANEL) 68752 BUN/Creat Ratio 3097-3 9.5 08/26/20 24 [facility] [address] [place] [address] CHEM 14 (METABOLIC PANEL) 41961 GFR Estimated 59142-6 92 mL/min/1.7 3m2 08/26/20 24 [facility] [address] [place] [address] CHEM 14 (METABOLIC PANEL) 74461 Sodium 2951-2 142 mmol/L 08/26/20 [facility] [address] [place] [address] CHEM 14 (METABOLIC PANEL) 63017 Potassium 2823-3 4.5 mmol/L 08/26/20 [facility] [address] [place] [address] CHEM 14 (METABOLIC PANEL) 58641 Chloride 2075-0 111 mmol/L 08/26/20 [facility] [address] [place] [address]324 CHEM 14 (METABOLIC PANEL) 71097 Total CO2 2028-9 24 mmol/L 08/26/20 [address] [facility] [address] [place] [address] CHEM 14 (METABOLIC PANEL) 06174 Anion Gap 1863-0 11.5 mEq/L 08/26/20 24 [facility] [address] [place] [address] CHEM 14 (METABOLIC PANEL) 50059 Calculated Serum Osmolality 46273-2 293 mOsm/kg 08/26/20 24 [facility] [address] [place] [address] CHEM 14 (METABOLIC PANEL) 55173 Albumin 90347-9 4.0 g/dL 08/26/20 24 [facility] [address] [place] [address] CHEM 14 (METABOLIC PANEL) 44367 Total Protein 2885-2 7.0 g/dL 08/26/20 [address] [facility] [address] [place] [address]368 CHEM 14 (METABOLIC PANEL) 76698 Globulin 2336-6 3.0 g/dL 08/26/20 24 [facility] [address] [place] [address] CHEM 14 (METABOLIC PANEL) 81407 Albumin/Globuli n Ratio 1759-0 1.3 08/26/20 24 [facility] [address] [place] [address] CHEM 14 (METABOLIC PANEL) 52563 ALK PHOS 6768-6 84.00 U/L 08/26/20 24 [facility] [address] [place] [address] CHEM 14 (METABOLIC PANEL) 87333 SGOT/AST 1920-8 23 U/L 08/26/20 24 [facility] [address] [place] [address] CHEM 14 (METABOLIC PANEL) 94399 SGPT/ALT 1743-4 26 U/L 08/26/20 24 [facility] [address] [place] [address] CHEM 14 (METABOLIC PANEL) 55982 Total Bilirubin 1975-2 0.6 mg/dL 08/26/20 24 [facility] [address] [place] [address] CHEM 14 (METABOLIC PANEL) 82365 Calcium 38631-1 9.7 mg/dL 08/26/20 24 [facility] [address] [place] [address] CHEM 14 (METABOLIC PANEL) 86671 Corrected Calcium 04905-6 9.9 mg/dL 08/26/20 24 [facility] [address] [place] [address] Procedures Procedure Codes Date Most recent A1c = 7.0% and < 8.0% CPT-4: 3051F 08/25/2024 MED LIST DOCD IN [facility] CPT-4: 1159F 08/25/2024 RVW MEDS BY RX/DR IN [facility] CPT-4: 1160F 2023 Discharge Meds Reconciled w/ Current Med list CP T-4: 1111F 08/25/2024 Amnt pain noted; none prsnt CPT-4: 1126F 07/29 Screening for clinical depre ssion is positive and follow up plan documented CPT-4: G8431 06/17/2024 [id number] CPT-4: 33292 Unknown [id number] CPT-4: 18681 Unknown F3Q-Wloxvtvamwcspuu CPT-4: 61071 Unknown Y8V-Juxorbefghfnvue CPT-4: 01269 Unknown Fecal Occult Blood Test (FOBT) Screening CPT-4: G0328 Unknown Vital Signs Date Vital 08/25/2024 Blood Pressure 1: 134/60 Code: 8480-6 Heart Rate 1: 87 bpm Respiratory Rate: 17 bpm SpO2: 97% Temperature: 36.2 (C) / 97.2 (F) Weight: 184 lbs Code: 30528-6 Reason For Visit Reason For Visit Effective Dates Notes post ED/hospital visit 08/25/2024 pt aurelio coleman went to the ER recently and was checked out and he states tests were normal. he was diagnosed with a seizure disorder--he has a follow up visit with neurology. HTN 08/25/2024 diabetes mellitus 08/25/2024 he states his blood sugars have been running in the 120 to 125 range Encounters Encounter Performer Location Location Address Codes Artie e ([id number]) Home or Residence Visit Est Pt - Moderate Level, 40 mins Diagnosis: HTN (hypertension)[I CD10: I10] Diagnosis: CAD (coronary artery disease)[ICD10: I25.10] Diagnosis: Bipolar disorder[ICD10: F31.9] Diagnosis: DM2 (diabetes mellitus, type 2)[ICD10: E11.9] Diagnosis: Seizure disorder[ICD10: G40.909] Erick Arnoldpepper [place] [facility] [address] [place] [address] CPT-4: 07237 08/25/2024 Plan of Care Planned Activity Notes Codes Status Date Visit Plan: I10-401.9 HTN (hypertension) (good control--no medication changes) I25.10-414.00 CAD (coronary artery disease) (followed by cardiology) F31.9-296.80 Bipolar disorder (followed by [facility]) E11.9-250.00 DM2 (diabetes mellitus, type 2) (labs drawn today) 08/25/2024 Patient Education: Patient Medication Summary Completed 08/25/2024 Patient Education: Hypertension Completed 08/25/2024 Patient Education: Diabetes Complete d 08/25/2024 Appointment: Karen Calero WPtel: [address] [place] [address] E18 06/17/2024 Appointment: Karen Calero WPtel: [address] [place] [address] E180 04/02/2024 Appointment: Marivel Lloyd WPtel: [address] E180 12/09/2023 Appointment: Marivel Lloyd WPtel: [address] E180 09/24/2023 Appointment: Marivel Lloyd WPtel: [address] [place] [address] N180 06/10/2023 Appointment: Marivel Lloyd WPtel: [address] [place] [address] N180 05/15/2023 Referral: Housing Coordination Referral Initiated Referral: Pending Medical Records Information faxed MR request Order Faxed Instructions Comment Date . I10-401.9 HTN (hypertensio n) (good control--no medication changes) I25.10-414.00 CAD (coronary artery disease) (followed by cardiology) F31.9-296.80 Bipolar disorder (followed by [facility]) E11.9-250.00 DM2 (diabetes mellitus, type 2) (labs drawn today) 08/25/2024 Medical Equipment No Medical Equipment data Health [...]
--- OUTSIDE RECORDS SUMMARY | 2025-02-10 22:19 | XMS_ITS | CCD ---
Author Name Karen Calero NP Address [address] [facility] [place] [address] Phone [facility] Phone Care Team Providers Care Vendor Representatives Name Role Phone Alycia Weaver NP Primary Care Provider Unavailabl e Unavailable Chronic Care Management Unavaila ble Summary Purpose DataExchange Insurance Providers Payer name Policy type / Coverage type Covered democrat ID Effective Begin Date Effective End Date MEDICARE [place]ARE [place] [id number] Unknown Unknown NO COPAY HOLD [id number] Unknown Unknown Family History Family History data not found Problems Condition Codes Effective Dates Condition St atus At high risk for falls ICD-10: Z91.81 ICD-9: V15.88 04/02/2024 Active Bipolar disorder ICD-10: F31.9 ICD-9: 296.80 06/10/2023 Active CAD (coronary artery disease) ICD-10: I2 5.10 ICD-9: 414.00 06/10/2023 Active Colon cancer screening ICD-10: Z12.11 ICD-9: V76.51 04/02/2024 Active DM2 (diabetes mellitus, type 2) ICD-10: [...] syncope ICD-10: Z87.898 ICD-9: V15.89 04/02/2024 Active Morbid (severe) obesity due to excess calories ICD-10: E66.01 ICD-9: 278.01 12/09/2023 Active Neuropathy ICD-10: G62.9 ICD-9: 355.9 06/10/2023 Active Recurrent falls ICD-10: R29.6 ICD-9: V15.88 04/02/2024 Active Spinal cord disorder ICD-10: G95.9 ICD-9: 336.9 12/09/2023 Active Tremors of nervous system ICD-10: R25.1 ICD-9: 781.0 04/02/2024 Active Vascular disease ICD-10: I99.9 ICD-9: 459.9 12/09/2023 Active Leg edema ICD-10: R60.0 ICD-9: 782.3 06/10/2023 Active Medications Medication Codes Instructions Start Date Stop Date Status Fill Instructions nitroglycerin 0.4 mg sublingual tablet RxNorm: 741892 Take 1 Tablet(s) Sublingual every 5 minutes as needed for chest pain. Do not exceed 3 doses in 15 minutes 04/02/20 024 Inactive albuterol sulfate HFA 90 mcg/actuation aerosol inhaler RxNorm: 8120564 Administer 2 Puff(s) Inhalation every 6 hours as needed 04/02/20 Inactive Toujeo Max U-300 SoloStar 300 unit/mL (3 mL) subcutaneous insulin pen RxNorm: 3919141 Administer 13 Unit(s) Subcutaneous two times a day 13 units in the morning and 13 units in the evening 04/02/20 No Stop Date Active Flonase Allergy Relief 50 mcg/actuation nasal spray,suspension RxNorm: 8041300 Narvon 2 Narvon Nasal every day 04/02/20 24 024 Inactive isosorbide mononitrate ER 30 mg tablet,extended release 24 hr RxNorm: 058162 Take 1 Tablet(s) Oral every morning 06/07/20 24 08/30/2 025 Active Ozempic 2 mg/dose (8 mg/3 mL) subcutaneous pen injector RxNorm: 0889362 Administer 2 Milligram(s) Subcutaneous once a week 04/02/20 No Stop Date Active duloxetine 30 mg capsule,delayed release RxNorm: 056473 Take 3 Capsule(s) Oral once daily 04/02/20 025 Active olanzapine 7.5 mg tablet RxNorm: 825450 Take 1 Tablet(s) Oral every night at bedtime 04/02/20 025 Active metformin 1,000 mg tablet RxNorm: 293203 Take 1 Tablet(s) Oral two times a day 04/02/20 025 Active allopurinol 100 mg tablet RxNorm: 879073 Take 1 Tablet(s) Oral 2 times a week 04/02/20 Active loratadine 10 mg tablet RxNorm: 433178 Take 1 Tablet(s) Oral every day 04/02/20 025 Active lisinopril 20 mg tablet RxNorm: 637806 Take 1 Tablet(s) Oral every day 04/02/20 24 025 Active buspirone 10 mg tablet RxNorm: 362374 Take 1 Tablet(s) Oral two times a day 04/02/20 24 024 Inactive lisinopril 20 mg tablet RxNorm: 793494 Take 1 Tablet(s) Oral every day 12/09/19 24 024 Inactive aspirin 81 mg tablet,delayed release RxNorm: 818837 Take 1 Tablet(s) Oral every day 06/10/20 23 023 Inactive ranolazine ER 500 mg tablet,extended release,12 hr RxNorm: 001631 Take 1 Tablet(s) Oral two times a day 06/10/20 23 No Stop Date Active furosemide 20 mg tablet RxNorm: 506862 Take 1 Tablet(s) Oral every day 06/10/20 23 No Stop Date Active hydrochlorothiazide 12.5 mg tablet RxNorm: 626793 Take 1 Tablet(s) Oral every day 06/10/20 23 No Stop Date Active pantoprazole 40 mg tablet,delayed release RxNorm: 306449 Take 1 Tablet(s) Oral every morning 06/10/20 No Stop Date Active divalproex 500 mg tablet,delayed release RxNorm: 3900102 Take 1 Tablet(s) Oral two times a day for mood 06/10/20 No Stop Date Active atorvastatin 40 mg tablet RxNorm: 667299 Take 1 Tablet(s) Oral every evening 06/10/20 023 Inactive gabapentin 600 mg tablet RxNorm: 938858 Take 1 Tablet(s) Oral two times a day 06/10/20 No Stop Date Active citalopram 20 mg tablet RxNorm: 652031 Take 1 Tablet(s) Oral every day 06/10/20 No Stop Date Active clopidogrel 75 mg tablet RxNorm: 446065 Take 1 Tablet(s) Oral every day 06/10/20 No Stop Date Active hydroxyzine HCl 25 mg tablet RxNorm: 079302 Take 1 Tablet(s) Oral two times a day as needed for anxiety 06/10/20 No Stop Date Active buspirone 15 mg tablet RxNorm: 068915 Take 1 Tablet(s) Oral two times a day for anxiety 06/10/20 024 Inactive Ozempic 1 mg/dose (4 mg/3 mL) subcutaneous pen injector RxNorm: 0140641 Inject 1 Milligram(s) Subcutaneous once a week 06/10/20 024 Inactive duloxetine 60 mg capsule,delayed release RxNorm: 944075 Take 1 Capsule(s) Oral every day 06/10/20 024 Inactive metformin 500 mg tablet RxNorm: 602262 Take 1 Tablet(s) Oral two times a day 06/10/20 023 Inactive quetiapine 400 mg tablet RxNorm: 829962 Take 1 Tablet(s) Oral every evening for sleep and pspychosis 06/10/20 024 Inactive lisinopril 10 mg tablet RxNorm: 196322 Take 1 Tablet(s) Oral every day 06/10/20 024 Inactive Lex Valdes U-300 Insulin 300 unit/mL (1.5 mL) subcutaneous pen RxNorm: 8745911 Administer 60 Unit(s) Subcutaneous every morning and 30 Units every evening 06/10/20 23 024 Inactive allopurinol 100 mg tablet RxNorm: 720467 Take 1 Tablet(s) Oral every day 06/10/20 23 024 Inactive Lex Ortega U-300 SoloStar subcutaneous RxNorm: 3852719 subcutaneous 06/10/20 23 023 Inactive Medication Administered No Medication Administered data Results Observation Observation Code Item Item Code Result Date Service Location Hemoccult Screening Immunoassay G0328 Fecal Occult Blood Test (FOBT) Screening 78700-7 NO SPECIMEN RECEIVED 024 [facility] [address] [place] [address] [id number] BIN 4548-4 Glyco HGB A1C 58962-9 7.4 % 024 [facility] [address] [place] [address] [id number] BIN 4548-4 eAG 92946-5 166 mg/dL 024 [facility] [address] [place] [address] CHEM 14 (METABOLIC PANEL) 90797 Glucose 2345-7 112 mg/dL 024 [facility] [address] [place] [address] CHEM 14 (METABOLIC PANEL) 47442 BUN 3094-0 23 mg/dL 024 [facility] [address] [place] [address] CHEM 14 (METABOLIC PANEL) 17006 Creatinine 2160-0 1.5 mg/dL 024 [facility] [address] [place] [address] CHEM 14 (METABOLIC PANEL) 26618 BUN/Creat Ratio 3097-3 15.6 024 [facility] [address] [place] [address] CHEM 14 (METABOLIC PANEL) 47650 GFR Estimated 45751-5 54 mL/min/1.73 m2 024 [facility] [address] [place] [address] CHEM 14 (METABOLIC PANEL) 97216 Sodium 2951-2 138 mmol/L 024 [facility] [address] [place] [address] CHEM 14 (METABOLIC PANEL) 28712 Potassium 2823-3 4.8 mmol/L 024 [facility] [address] [place] [address] CHEM 14 (METABOLIC PANEL) 59624 Chloride 2075-0 99 mmol/L 024 [facility] [address] [place] [address] 22924 CHEM 14 (METABOLIC PANEL) 11706 Total CO2 2028-9 26 mmol/L 024 [facility] [address] [place] [address] 45672 CHEM 14 (METABOLIC PANEL) 91271 Anion Gap 1863-0 17.8 mEq/L 024 [facility] [address] [place] [address] 14310 CHEM 14 (METABOLIC PANEL) 96744 Calculated Serum Osmolality 90152-1 290 mOsm/kg 024 [facility] [address] [place] [address] 586[address] CHEM 14 (METABOLIC PANEL) 88497 Albumin 25335-9 4.3 g/dL 024 [facility] [address] [place] [address] 94681 CHEM 14 (METABOLIC PANEL) 61381 Total Protein 2885-2 6.8 g/dL 024 [facility] [address] [place] [address] 43255 CHEM 14 (METABOLIC PANEL) 65602 Globulin 2336-6 2.5 g/dL 024 [facility] [address] [place] [address] 61718 CHEM 14 (METABOLIC PANEL) 53203 Albumin/Globulin Ratio 1759-0 1.7 024 [facility] [address] [place] [address] 86010 CHEM 14 (METABOLIC PANEL) 38695 ALK PHOS 6768-6 58.00 U/L 024 [facility] [address] [place] [address] 90768 CHEM 14 (METABOLIC PANEL) 64769 SGOT/AST 1920-8 19 U/L 024 [facility] [address] [place] [address] 48559 CHEM 14 (METABOLIC PANEL) 01033 SGPT/ALT 1743-4 19 U/L 024 [facility] [address] [place] [address] 72436 CHEM 14 (METABOLIC PANEL) 52071 Total Bilirubin 1975-2 0.6 mg/dL 024 [facility] [address] [place] [address] 98953 CHEM 14 (METABOLIC PANEL) 14569 Calcium 04970-6 9.9 mg/dL 024 [facility] [address] [place] [address] CHEM 14 (METABOLIC PANEL) 87387 Corrected Calcium 85706-4 9.8 mg/dL 024 [facility] [address] [place] [address] MICROALBUMIN (URINE) 59281 Microalbumin 85691-0 1.7 mg/dL 024 [facility] [address] [place] [address] MICROALBUMIN (URINE) 69077 Microalbumin/Cre atinine Ratio 62660-5 6 MCG/MGCREAT 024 [facility] [address] [place] [address] MICROALBUMIN (URINE) 65388 Urine Creatinine 2161-8 275.00 mg/dL 024 [facility] [address] [place] [address] Procedures Procedure Codes Date Documentation of patient hav ing a dx of depression or bipolar disorder CPT-4: G9717 04/02/2024 Screening for clinical depre ssion is positive and follow up plan documented CPT-4: G8431 04/02/2024 Discharge Meds Reconciled w/ Current Med list CP T-4: 1111F 04/02/2024 Amnt pain noted; pain prsnt CPT-4: 1125F 04/2024 MED LIST DOCD IN [facility] CPT-4: 1159F 04/02/2024 RVW MEDS BY RX/DR IN [facility] CPT-4: 1160F 2023 [id number] CPT-4: 35104 Unknown [id number]-Kxvzudteuvabbag CPT-4: 18790 Unknown K6J-Zxyojaxojwoqikf CPT-4: 40739 Unknown Fecal Occult Blood Test (FOBT) Screening CPT-4: G0328 Unknown Vital Signs Date Vital 04/02/2024 Blood Pressure 1: 115/70 Code: 8480-6 Blood Pressure 2: 115/70 Code: 8480-6 BMI: 36.5 Code: 83666-9 Heart Rate 1: 82 bpm Height: 5'1 Code: 8302-2 Respiratory Rate: 18 bpm SpO2: 97% Temperature: 36.4 (C) / 97.5 (F) Weight: 193 lbs 2 oz Code: 66691-6 Reason For Visit Reason For Visit Effective Dates Notes established patient visit 04/02/2024 HTN 04/02/2024 hyperlipidemia disease 04/02/2024 diabetes mellitus 04/02/2024 CAD 04/02/2024 tremor 04/02/2024 Encounters Encounter Performer Location Location Address Codes Artie e ([id number]) Home or Residence Visit Est Pt - Moderate Level, 40 mins Diagnosis: Bipolar disorder[ICD10: F31.9] Diagnosis: CAD (coronary artery disease)[ICD10: I25.10] Diagnosis: DM2 (diabetes mellitus, type 2)[ICD10: E11.9] Diagnosis: 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] Diagnosis: Gout[ICD10: M10.9] Diagnosis: H/O heart artery stent[ICD10: Z95.5] Diagnosis: Hemiplegia[ICD10: G81.90] Diagnosis: HLD (hyperlipidemia)[ ICD10: E78.5] Diagnosis: HTN (hypertension)[IC D10: I10] Diagnosis: Morbid (severe) obesity due to excess calories[ICD10: E66.01] Diagnosis: Neuropathy[ICD10: G62.9] Diagnosis: Spinal cord disorder[ICD10: G95.9] Diagnosis: Vascular disease[ICD10: I99.9] Diagnosis: Tremors of nervous system[ICD10: R25.1] Diagnosis: Frailty[ICD10: R54] Diagnosis: Recurrent falls[ICD10: R29.6] Diagnosis: At high risk for falls[ICD10: Z91.81] Diagnosis: Hx of syncope[ICD10: Z87.898] Diagnosis: Colon cancer screening[ICD10: Z12.11] Karen Calero [place] [facility] [address] [place] [address] CPT-4: 69807 04/02/2024 Plan of Care Planned Activity Notes Codes Status Date Visit Plan: F31.9-296.80 Bipolar disorder--- ---cont buspirone, citalopram, duloxetine, divalproex I25.10-414.00 CAD (coronary artery disease)--- ---cont aspirin, atorvastatin, clopidogrel E11.9-250.00 DM2 (diabetes mellitus, type 2)--- ---cont metformin, trujeo, and ozempic E66.1-278.00 Drug-induced obesity-- ---cont low fat, low sodium, heart healthy diabetic diet with low calories M10.9-274.9 Gout--- ----cont allopurinol Z95.5-V45.82 H/O heart artery stent--- ---cont supportive therapy G81.90-342.90 Hemiplegia--- --cont supportive therapy E78.5-272.4 HLD (hyperlipidemia)--- ---cont atorvastatin I10-401.9 HTN (hypertension)--- ---cont aspirin, atorvastatin, plavix, hctz, furosemide, E66.01-278.01 Morbid (severe) obesity due to excess calories--- ---cont low sodium, low fat, heart healthy diabetic diet G62.9-355.9 Neuropathy---- ---cont gabapentin G95.9-336.9 Spinal cord disorder-- --cont supportive therapy I99.9-459.9 Vascular disease--- ---cont supportive therapy R25.1-781.0 Tremors of nervous system--- ---keep scheduled appt with neurology. R54-797 Frailty---- ---cont supportive therapy. 04/02/2024 Patient Education: Obesity Completed 04/02/2024 Patient Education: Heart Disease Completed 04/02/2024 Patient Education: Patient Medication Summary Completed 04/02/2024 Patient Education: Hypertension Completed 04/02/2024 Patient Education: Diabetes Complete d 04/02/2024 Care Plan: External Laboratory Tests Ordered 04/02/2024 Appointment: Marivel Lloyd WPtel: [address] [place] [address] E180 12/09/2023 Appointment: Marivel Lloyd WPtel: [address] [place] [address] E180 09/24/2023 Appointment: Marivel Lloyd WPtel: [address] [place] [address] [address]180 06/10/2023 Appointment: Marivel Lloyd WPtel: [address] [place] [address] [address]180 05/15/2023 Referral: Housing Coordination Referral Initiated Referral: Pending Medical Records Information faxed MR request Order Faxed Instructions Comment Date ? Keep all scheduled appts with providers and f/u as needed. ?? Next f/u appt on April 30, 2024. ?? Continue current medications as prescribed. Consume a low sodium, low fat, heart healthy diet. Continue current level of physical activity as tolerated. Use assistive devices as instructed. ?? Safety and falls precautions ongoing. Monitor bp daily and record findings. ?? Monitor blood glucose as instructed and record findings. ?? Notify provider for any issues via [facility] 24 hour line. [phone]. F31.9-296.80 Bipolar disorder--- ---cont buspirone, citalopram, duloxetine, divalproex I25.10-414.00 CAD (coronary artery disease)--- ---cont aspirin, atorvastatin, clopidogrel E11.9-250.00 DM2 (diabetes mellitus, type 2)--- ---cont metformin, trujeo, and ozempic E66.1-278.00 Drug-induced obesity-- ---cont low fat, low sodium, heart healthy diabetic diet with low calories M10.9-274.9 Gout--- ----cont allopurinol Z95.5-V45.82 H/O heart artery stent--- ---cont supportive therapy G81.90-342.90 Hemiplegia--- --cont supportive therapy E78.5-272.4 HLD (hyperlipidemia)--- ---cont atorvastatin I10-401.9 HTN (hypertension)--- ---cont aspirin, atorvastatin, plavix, hctz, furosemide, E66.01-278.01 Morbid (severe) obesity due to excess calories--- ---cont low sodium, low fat, heart healthy diabetic diet G62.9-355.9 Neuropathy---- ---cont gabapentin G95.9-336.9 Spinal cord disorder-- --cont supportive therapy I99.9-459.9 Vascular disease--- ---cont supportive therapy R25.1-781.0 Tremors of nervous system--- ---keep scheduled appt with neurology. R54-797 Frailty---- ---cont supportive therapy. 04/02/2024 Medical Equipment No Medical Equipment data Health [...]
--- OUTSIDE RECORDS SUMMARY | 2025-02-10 22:20 | XMS_ITS | CCD ---
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 Name Role Phone Alycia Weaver NP Primary Care Provider Unavailabl e Unavailable Chronic Care Management Unavaila ble Summary Purpose DataExchange Insurance Providers Payer name Policy type / Coverage type Covered libertarian ID Effective Begin Date Effective End Date MEDICARE WE[place]CARE [place] [id number] Unknown Unknown NO COPAY HOLD [id number] Unknown Unknown Family History Family History data not found Medication Administered No Medication Administered data Reason For Visit No Reason For Visit data Plan of Care Planned Activity Notes Codes Status Date Patient Education: Patient M edication Summary Completed 05/12/2023 Referral: Housing Coordination Referral Initi ated Referral: [...]
--- OUTSIDE RECORDS SUMMARY | 2025-02-10 22:20 | XMS_ITS ---
Author Name [facility] Organization Unknown Encounters Encounter Type Encounter Reason Primary Diagnosis Location Date Ambulatory [facility] 08/27/2024 Care Team Organization Name Specialty Phone Email Start Date End Da te [facility] 08/28
--- OUTSIDE RECORDS SUMMARY | 2025-02-10 22:20 | XMS_ITS | Patient Health Record ---
Author Organization 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
--- OUTSIDE RECORDS SUMMARY | 2025-02-10 22:20 | XMS_ITS | CCD ---
Author Name Gabino MILNER, Dr Brianna jarrett Address [address] [place] [address] Phone Organization [facility] Phone Care Team Providers Care Project Officer Name Role Phone Alycia Weaver NP Primary Care Provider Unavailabl e Unavailable Chronic Care Management Unavaila ble Summary Purpose DataExchange Insurance Providers Payer name Policy type / Coverage type Covered republican ID Effective Begin Date Effective End Date [place]IC[place] [id number] Unknown Unknown NO COPAY HOLD [id number] Unknown Unknown Family History Family History data not found Problems Condition Codes Effective Dates Condition St atus Bipolar disorder ICD-10: F31.9 ICD-9: 296.80 06/10/2023 Active CAD (coronary artery disease) ICD-10: I2 5.10 ICD-9: 414.00 06/10/2023 Active DM2 (diabetes mellitus, type 2) ICD-10: E11.9 ICD-9: 250.00 06/10/2023 Active 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 ICD-9: 278.00 12/09/2023 Active Hemiplegia ICD-10: G81.90 ICD-9: 342.90 12/09/2023 Active HLD (hyperlipidemia) ICD-10: E78.5 ICD-9: 272.4 06/10/2023 Active HTN (hypertension) ICD-10: I10 ICD-9: 401.9 06/10/2023 Active Morbid (severe) obesity due to excess calories ICD-10: E66.01 ICD-9: 278.01 12/09/2023 Active Neuropathy ICD-10: G62.9 ICD-9: 355.9 06/10/2023 Active Spinal cord disorder ICD-10: G95.9 ICD-9: 336.9 12/09/2023 Active Vascular disease ICD-10: I99.9 ICD-9: 459.9 12/09/2023 Active Gout ICD-10: M10.9 ICD-9: 274.9 06/10/2023 Active H/O heart artery stent ICD-10: Z95.5 ICD-9: V45.82 06/10/2023 Active Leg edema ICD-10: R60.0 ICD-9: 782.3 06/10/2023 Active Medications Medication Codes Instructions Start Date Stop Date Status Fill Instructions lisinopril 20 mg tablet RxNorm: 087879 Take 1 Tablet(s) Oral every day 12/09/19 24 024 Inactive aspirin 81 mg tablet,delayed release RxNorm: 691305 Take 1 Tablet(s) Oral every day 06/10/20 23 023 Inactive ranolazine ER 500 mg tablet,extended release,12 hr RxNorm: 780222 Take 1 Tablet(s) Oral two times a day 06/10/20 23 No Stop Date Active buspirone 15 mg tablet RxNorm: 780129 Take 1 Tablet(s) Oral two times a day for anxiety 06/10/20 23 024 Inactive Ozempic 1 mg/dose (4 mg/3 mL) subcutaneous pen injector RxNorm: 2293879 Inject 1 Milligram(s) Subcutaneous once a week 06/10/20 23 024 Inactive duloxetine 60 mg capsule,delayed release RxNorm: 462060 Take 1 Capsule(s) Oral every day 06/10/20 23 024 Inactive furosemide 20 mg tablet RxNorm: 154382 Take 1 Tablet(s) Oral every day 06/10/20 23 No Stop Date Active hydrochlorothiazide 12.5 mg tablet RxNorm: 089441 Take 1 Tablet(s) Oral every day 06/10/20 23 No Stop Date Active pantoprazole 40 mg tablet,delayed release RxNorm: 970536 Take 1 Tablet(s) Oral every morning 06/10/20 23 No Stop Date Active divalproex 500 mg tablet,delayed release RxNorm: 4942901 Take 1 Tablet(s) Oral two times a day for mood 06/10/20 23 No Stop Date Active atorvastatin 40 mg tablet RxNorm: 913362 Take 1 Tablet(s) Oral every evening 06/10/20 23 023 Inactive gabapentin 600 mg tablet RxNorm: 635558 Take 1 Tablet(s) Oral two times a day 06/10/20 23 No Stop Date Active citalopram 20 mg tablet RxNorm: 216088 Take 1 Tablet(s) Oral every day 06/10/20 23 No Stop Date Active Toujeo NicoleoStar U-300 Insulin 300 unit/mL (1.5 mL) subcutaneous pen RxNorm: 5795864 Administer 60 Unit(s) Subcutaneous every morning and 30 Units every evening 06/10/20 23 024 Inactive allopurinol 100 mg tablet RxNorm: 790900 Take 1 Tablet(s) Oral every day 06/10/20 23 024 Inactive clopidogrel 75 mg tablet RxNorm: 080339 Take 1 Tablet(s) Oral every day 06/10/20 No Stop Date Active hydroxyzine HCl 25 mg tablet RxNorm: 178771 Take 1 Tablet(s) Oral two times a day as needed for anxiety 06/10/20 No Stop Date Active metformin 500 mg tablet RxNorm: 858454 Take 1 Tablet(s) Oral two times a day 06/10/20 23 023 Inactive quetiapine 400 mg tablet RxNorm: 668617 Take 1 Tablet(s) Oral every evening for sleep and pspychosis 06/10/20 23 024 Inactive lisinopril 10 mg tablet RxNorm: 982752 Take 1 Tablet(s) Oral every day 06/10/20 23 024 Inactive Toujeo Max U-300 SoloStar subcutaneous RxNorm: 2425320 subcutaneous 06/10/20 23 023 Inactive Medication Administered No Medication Administered data Results Observation Observation Code Item Item Code Result Date Service Location CHEM 14 (METABOLIC PANEL) 20242 Glucose 2345-7 NO SPECIMEN RECEIVED mg/dL 12/30/19 24 [facility] [address] [place] [address] CHEM 14 (METABOLIC PANEL) 94912 BUN 3094-0 NO SPECIMEN RECEIVED mg/dL 12/30/19 24 [facility] [address] [place] [address] CHEM 14 (METABOLIC PANEL) 45739 Creatinine 2160-0 NO SPECIMEN RECEIVED mg/dL 12/30/19 24 [facility] [address] [place] [address] 28148 CHEM 14 (METABOLIC PANEL) 37154 BUN/Creat Ratio 3097-3 NO SPECIMEN RECEIVED 12/30/19 24 [facility] [address] [place] [address] 71610 CHEM 14 (METABOLIC PANEL) 34234 GFR Estimated 87763-9 NO SPECIMEN RECEIVED mL/min/1.73m 2 12/30/19 24 [facility] [address] [place] [address] 96608 CHEM 14 (METABOLIC PANEL) 50350 Sodium 2951-2 NO SPECIMEN RECEIVED mmol/L 12/30/19 24 [facility] [address] [place] [address] 24009 CHEM 14 (METABOLIC PANEL) 39767 Potassium 2823-3 NO SPECIMEN RECEIVED mmol/L 12/30/19 24 [facility] [address] [place] [address] 58965 CHEM 14 (METABOLIC PANEL) 77932 Chloride 2075-0 NO SPECIMEN RECEIVED mmol/L 12/30/19 24 [facility] [address] [place] [address] 46074 CHEM 14 (METABOLIC PANEL) 97205 Total CO2 2028-9 NO SPECIMEN RECEIVED mmol/L 12/30/19 24 [facility] [address] [place] [address] 60857 CHEM 14 (METABOLIC PANEL) 86114 Anion Gap 1863-0 NO SPECIMEN RECEIVED mEq/L 12/30/19 24 [facility] [address] [place] [address] 80118 CHEM 14 (METABOLIC PANEL) 60502 Calculated Serum Osmolality 69074-2 NO SPECIMEN RECEIVED mOsm/kg 12/30/19 24 [facility] [address] [place] [address] 51907 CHEM 14 (METABOLIC PANEL) 22383 Albumin 61325-4 NO SPECIMEN RECEIVED g/dL 12/30/19 24 [facility] [address] [place] [address] 91818 CHEM 14 (METABOLIC PANEL) 47137 Total Protein 2885-2 NO SPECIMEN RECEIVED g/dL 12/30/19 24 [facility] [address] [place] [address] 22606 CHEM 14 (METABOLIC PANEL) 39192 Globulin 2336-6 NO SPECIMEN RECEIVED g/dL 12/30/19 24 [facility] [address] [place] [address] 23652 CHEM 14 (METABOLIC PANEL) 55367 Albumin/Globul in Ratio 1759-0 NO SPECIMEN RECEIVED 12/30/19 24 [facility] [address] [place] [address] 64760 CHEM 14 (METABOLIC PANEL) 81342 ALK PHOS 6768-6 NO SPECIMEN RECEIVED U/L 12/30/19 24 [facility] [address] [place] [address] CHEM 14 (METABOLIC PANEL) 11708 SGOT/AST 1920-8 NO SPECIMEN RECEIVED U/L 12/30/19 24 [facility] [address] [place] [address] 23692 CHEM 14 (METABOLIC PANEL) 03435 SGPT/ALT 1743-4 NO SPECIMEN RECEIVED U/L 12/30/19 24 [facility] [address] [place] [address] 81031 CHEM 14 (METABOLIC PANEL) 80153 Total Bilirubin 1975-2 NO SPECIMEN RECEIVED mg/dL 12/30/19 24 [facility] [address] [place] [address] 73484 CHEM 14 (METABOLIC PANEL) 97496 Calcium 86660-6 NO SPECIMEN RECEIVED mg/dL 12/30/19 24 [facility] [address] [place] [address] 20162 CHEM 14 (METABOLIC PANEL) 26717 Corrected Calcium 81122-8 NO SPECIMEN RECEIVED mg/dL 12/30/19 24 [facility] [address] [place] [address] 58795 [id number] OBIN 4548-4 Glyco HGB A1C 18448-8 NO SPECIMEN RECEIVED % 12/30/19 [address] [facility] [address] [place] [address] 86440 [id number] OBIN 4548-4 eAG 85407-9 NO SPECIMEN RECEIVED mg/dL 12/30/19 24 [facility] [address] [place] [address] 78154 CBC 40085 WBC 6690-2 NO SPECIMEN RECEIVED K/ul 12/30/19 24 [facility] [address] [place] [address] 28274 CBC 14103 RBC 789-8 NO SPECIMEN RECEIVED M/uL 12/30/19 24 [facility] [address] [place] [address] 55436 CBC 55110 Hemoglobin 718-7 NO SPECIMEN RECEIVED g/dL 12/30/19 24 [facility] [address] [place] [address] 28128 CBC 36269 Hematocrit 4544-3 NO SPECIMEN RECEIVED % 12/30/19 24 [facility] [address] [place] [address] 00012 CBC 58132 MCV 787-2 NO SPECIMEN RECEIVED fL 12/30/19 24 [facility] [address] [place] [address] 92063 CBC 89658 MCH 785-6 NO SPECIMEN RECEIVED pg 12/30/19 24 [facility] [address] [place] [address] 97156 CBC 42424 MCHC 786-4 NO SPECIMEN RECEIVED g/dL 12/30/19 24 [facility] [address] [facility] [place] [address] CBC 39611 RDW 788-0 NO SPECIMEN RECEIVED % 12/30/19 24 [facility] [address] [facility] [place] [address] CBC 69637 Platelet Count 777-3 NO SPECIME N RECEIVED K/uL 12/30/19 24 [facility] [address] [place] [address] CBC 19238 MPV 74265-6 NO SPECIMEN RECEIVED fL 12/30/19 24 [facility] [address] [facility] [place] [address] Procedures Procedure Codes Date [id number] CPT-4: 28499 Unknown F4X-Yrfwewfrehxzdwa CPT-4: 24672 Unknown Vital Signs Date Vital 12/09/2023 Blood Pressure 1: 152/84 Code: 8480-6 Blood Pressure 1: 138/80 Code: 8480-6 BMI: 38.4 Code: 01664-9 Heart Rate 1: 79 bpm Height: 5'1 Code: 8302-2 Respiratory Rate: 16 bpm SpO2: 97% Temperature: 36.3 (C) / 97.4 (F) Weight: 203 lbs Code: 90401-4 Reason For Visit Reason For Visit Effective Dates Notes diabetes mellitus 12/09/2023 HTN 12/09/2023 hyperlipidemia disease 12/09/2023 obesity 12/09/2023 diabetic neuropathy 12/09/2023 bipolar disorder 12/09/2023 Encounters Encounter Performer Location Location Address Codes Artie e ([id number]) Home or Residence Visit Est Pt - Moderate Level, 40 mins Diagnosis: DM2 (diabetes mellitus, type 2)[ICD10: E11.9] Diagnosis: HTN (hypertension)[I CD10: I10] Diagnosis: HLD (hyperlipidemia) [ICD10: E78.5] Diagnosis: CAD (coronary artery disease)[ICD10: I25.10] Diagnosis: Bipolar disorder[ICD10: F31.9] Diagnosis: Neuropathy[ICD10 : G62.9] Diagnosis: Vascular disease[ICD10: I99.9] Diagnosis: Spinal cord disorder[ICD10: G95.9] Diagnosis: Hemiplegia[ICD10 : G81.90] Diagnosis: Morbid (severe) obesity due to excess calories[ICD10: E66.01] Diagnosis: 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] Marivel Lloyd [place] [facility] [address] [place] [address] CPT-4: 74091 12/09/2023 Plan of Care Planned Activity Notes Codes Status Date Visit Plan: he will see new cach[facility] l pcp this month 12/09/2023 Patient Education: Patient Medication Summary Completed 12/09/2023 Patient Education: Obesity Completed 12/09/2023 Patient Education: lisinopri l- [employer] Coupon [id number] [email or web address] Completed 12/09/2023 Patient Education: Diabetes Complete d 12/09/2023 Patient Education: Hypertension Completed 12/09/2023 Appointment: Marivel Lloyd WPtel: [address] [place] [address] E180 09/24/2023 Appointment: Marivel Lloyd WPtel: [address] [place] [address] N180 06/10/2023 Appointment: Marivel Lloyd WPtel: [address] [place] [address] N180 05/15/2023 Referral: Housing Coordination Referral Initi ated Referral: Pending Medical Records Information faxed MR request Order Faxed Instructions Comment Date . he will see new local pcp this month 0 12/09/2023 Medical Equipment No Medical Equipment data Health [...]
--- OUTSIDE RECORDS SUMMARY | 2025-02-10 22:20 | XMS_ITS ---
Author Organization [facility] Address [address] [place] [address] Care Team Providers Care Administrative Support Specialist Name Role Phone Unavailable Unavailable Unavailable Payers Payer Name Policy Type Policy Number Effective Date Expira tion Date Procedures Procedure Date / Time Performed Performing Clinician [id number] 2024-07-21 00:00:00 T12024-07-15 00:00:00 H22024-07-09 00:00:00 T12024-07-02 00:00:00 T12024-06-25 00:00:00 H22024-06-23 00:00:00 H22024-06-18 00:00:00 H22024-06-11 00:00:00 T12024-06-04 00:00:00 H22024-05-27 00:00:00 [id number] 2024-04-28 00:00:00 Encounters Start Date/Time End Date/Time Encounter Type Admission Type Attending [facility] Care Department Encounter ID 2024-07-27 15:54:00 2024-07-27 15:54:00 Usman- QUALHR QUALHR [id number] 2024-06-09 15:37:00 2024-06-09 15:37:00 Usman- QUALHR QUALHR [id number]
--- OUTSIDE RECORDS SUMMARY | 2025-02-10 22:20 | XMS_ITS ---
Author Organization [facility], [facility] Address [address] [place] [address] Care Team Providers Care Tower Crane Operator Name Role Phone Indu STEPHENS, Ms Jackson Unavailable Un available Rick Orozco Unavailable [phone] REASON FOR VISIT r/s Encounters Encounter Location Date Provider Diagnosis 1 [facility], [facility] [address] [place] [address] 01/12/2024 Rick Orozco Plan Of Treatment No Information Progress Notes * Bulmaro GARRIDOoDOB: [birth year] (58 yo M)Acc No.[id number]:01/12/2024 Patient:?HemaBulmaroo :1965???Age:58 Y???Sex:Male Address:[address] [place] [address], [address] * true * Date:? Generated for Efrain yusuf/Lainey/eTransmitting on:?02/10/2025 09:38 PM EDT
--- OUTSIDE RECORDS SUMMARY | 2025-02-10 22:20 | XMS_ITS | CCD ---
Author Name Gabino MILNER, Dr Brianna jarrett Address [address] [facility] [place] [address] Phone Organization [email or web address] Phone Care Team Providers Care Manager Acute Name Role Phone Alycia Weaver NP Primary Care Provider Unavailabl e Unavailable Chronic Care Management Unavaila ble Summary Purpose DataExchange Insurance Providers Payer name Policy type / Coverage type Covered republican ID Effective Begin Date Effective End Date MEDICARE [place] [id number] Unknown Unknown NO COPAY HOLD [id number] Unknown Unknown Family History Family History data [...] Fill Instructions quetiapine 300 mg tablet RxNorm: 050199 Take 1 Tablet(s) Oral every night at bedtime 08/25/20 Active benztropine 0.5 mg tablet RxNorm: 330161 Take 1 Tablet(s) Oral every day 08/25/20 24 Active buspirone 15 mg tablet RxNorm: 932765 Take 1 Tablet(s) Oral two times a day 08/25/20 Active trazodone 150 mg tablet RxNorm: 527985 Take 1 Tablet(s) Oral every night at bedtime 08/25/20 Active nitroglycerin 0.4 mg sublingual tablet RxNorm: 151635 Take 1 Tablet(s) Sublingual every 5 minutes as needed for chest pain. Do not exceed 3 doses in 15 minutes 04/02/20 24 024 Inactive albuterol sulfate HFA 90 mcg/actuation aerosol inhaler RxNorm: 3018229 Administer 2 Puff(s) Inhalation every 6 hours as needed 04/02/20 024 Inactive Toujeo Max U-300 SoloStar 300 unit/mL (3 mL) subcutaneous insulin pen RxNorm: 8684645 Administer 13 Unit(s) Subcutaneous two times a day 13 units in the morning and 13 units in the evening 04/02/20 24 No Stop Date Active Flonase Allergy Relief 50 mcg/actuation nasal spray,suspension RxNorm: 7032583 Clements 2 Clements Nasal every day 04/02/20 24 Inactive isosorbide mononitrate ER 30 mg tablet,extended release 24 hr RxNorm: 485530 Take 1 Tablet(s) Oral every morning 04/02/20 Active Ozempic 2 mg/dose (8 mg/3 mL) subcutaneous pen injector RxNorm: 3889623 Administer 2 Milligram(s) Subcutaneous once a week 04/02/20 No Stop Date Active duloxetine 30 mg capsule,delayed release RxNorm: 125205 Take 3 Capsule(s) Oral once daily 04/02/20 Active olanzapine 7.5 mg tablet RxNorm: 254170 Take 1 Tablet(s) Oral every night at bedtime 04/02/20 025 Active metformin 1,000 mg tablet RxNorm: 090165 Take 1 Tablet(s) Oral two times a day 04/02/20 025 Active allopurinol 100 mg tablet RxNorm: 619674 Take 1 Tablet(s) Oral 2 times a week 04/02/20 025 Active loratadine 10 mg tablet RxNorm: 965172 Take 1 Tablet(s) Oral every day 04/02/20 025 Active lisinopril 20 mg tablet RxNorm: 742328 Take 1 Tablet(s) Oral every day 04/02/20 025 Active buspirone 10 mg tablet RxNorm: 475561 Take 1 Tablet(s) Oral two times a day 04/02/20 24 024 Inactive lisinopril 20 mg tablet RxNorm: 737203 Take 1 Tablet(s) Oral every day 12/09/19 24 024 Inactive aspirin 81 mg tablet,delayed release RxNorm: 086035 Take 1 Tablet(s) Oral every day 06/10/20 23 023 Inactive ranolazine ER 500 mg tablet,extended release,12 hr RxNorm: 719135 Take 1 Tablet(s) Oral two times a day 06/10/20 23 No Stop Date Active furosemide 20 mg tablet RxNorm: 520078 Take 1 Tablet(s) Oral every day 06/10/20 No Stop Date Active hydrochlorothiazide 12.5 mg tablet RxNorm: 766277 Take 1 Tablet(s) Oral every day 06/10/20 No Stop Date Active pantoprazole 40 mg tablet,delayed release RxNorm: 267719 Take 1 Tablet(s) Oral every morning 06/10/20 No Stop Date Active divalproex 500 mg tablet,delayed release RxNorm: 0147349 Take 1 Tablet(s) Oral two times a day for mood 06/10/20 No Stop Date Active atorvastatin 40 mg tablet RxNorm: 839314 Take 1 Tablet(s) Oral every evening 06/10/20 023 Inactive gabapentin 600 mg tablet RxNorm: 372560 Take 1 Tablet(s) Oral two times a day 06/10/20 No Stop Date Active citalopram 20 mg tablet RxNorm: 428492 Take 1 Tablet(s) Oral every day 06/10/20 No Stop Date Active clopidogrel 75 mg tablet RxNorm: 367121 Take 1 Tablet(s) Oral every day 06/10/20 No Stop Date Active hydroxyzine HCl 25 mg tablet RxNorm: 253812 Take 1 Tablet(s) Oral two times a day as needed for anxiety 06/10/20 No Stop Date Active buspirone 15 mg tablet RxNorm: 025964 Take 1 Tablet(s) Oral two times a day for anxiety 06/10/20 024 Inactive Ozempic 1 mg/dose (4 mg/3 mL) subcutaneous pen injector RxNorm: 2562860 Inject 1 Milligram(s) Subcutaneous once a week 06/10/20 024 Inactive duloxetine 60 mg capsule,delayed release RxNorm: 077004 Take 1 Capsule(s) Oral every day 06/10/20 024 Inactive metformin 500 mg tablet RxNorm: 839098 Take 1 Tablet(s) Oral two times a day 06/10/20 023 Inactive quetiapine 400 mg tablet RxNorm: 769428 Take 1 Tablet(s) Oral every evening for sleep and pspychosis 06/10/20 024 Inactive lisinopril 10 mg tablet RxNorm: 085428 Take 1 Tablet(s) Oral every day 06/10/20 024 Inactive Toujeo SoloStar U-300 Insulin 300 unit/mL (1.5 mL) subcutaneous pen RxNorm: 4730876 Administer 60 Unit(s) Subcutaneous every morning and 30 Units every evening 06/10/20 024 Inactive allopurinol 100 mg tablet RxNorm: 220307 Take 1 Tablet(s) Oral every day 06/10/20 024 Inactive Toujeo Max U-300 SoloStar subcutaneous RxNorm: 8000711 subcutaneous 06/10/20 023 Inactive Medication Administered No Medication Administered data Results Observation Observation Code Item Item Code Result Date Service Location COMPLETE CBC W/ DIFF WBC 03175 WBC 6690-2 6.2 K/ul 024 [facility] [address] [place] [address] 03107 COMPLETE CBC W/ DIFF WBC 07424 RBC 789-8 4.60 M/uL 024 [facility] [address] [place] [address] 33374 COMPLETE CBC W/ DIFF WBC 06115 Hemoglobin 718-7 14.3 g/dL 024 [facility] [address] [place] [address] 35368 COMPLETE CBC W/ DIFF WBC 44439 Hematocrit 4544-3 41.9 % [facility] [address] [place] [address] 83698 COMPLETE CBC W/ DIFF WBC 27972 MCV 787-2 91.0 fL 024 [facility] [address] [place] [address] 01363 COMPLETE CBC W/ DIFF WBC 29197 MCH 785-6 31.0 pg 024 [facility] [address] [place] [address] 84860 COMPLETE CBC W/ DIFF WBC 62459 MCHC 786-4 34.1 g/dL [facility] [address] [place] [address] 52094 COMPLETE CBC W/ DIFF WBC 81437 RDW 788-0 16.4 % 024 [facility] [address] [place] [address] 32499 COMPLETE CBC W/ DIFF WBC 17961 Platelet Count 777-3 357 K/uL 024 [facility] [address] [place] [address] COMPLETE CBC W/ DIFF WBC 56755 MPV 99721-8 6.7 fL 024 [facility] [address] [place] [address] COMPLETE CBC W/ DIFF WBC 59471 Neutrophils % 770-8 41.5 % 024 [facility] [address] [place] [address] COMPLETE CBC W/ DIFF WBC 09979 Lymphocytes % 736-9 38.6 % 024 [facility] [address] [place] [address] COMPLETE CBC W/ DIFF WBC 86308 Monocytes % 5905-5 10.4 % 024 [facility] [address] [place] [address] COMPLETE CBC W/ DIFF WBC 14013 Eosinophils % 713-8 8.6 % 024 [facility] [address] [place] [address] 55921 COMPLETE CBC W/ DIFF WBC 67822 Basophils% 706-2 0.9 % 024 [facility] [address] [place] [address] 34508 COMPLETE CBC W/ DIFF WBC 42096 Absolute Neutrophil 751-8 2573 /ul 024 [facility] [address] [place] [address] 36256 COMPLETE CBC W/ DIFF WBC 51793 Absolute Lymphocyte 69018-7 2393 /ul 024 [facility] [address] [place] [address] 77258 COMPLETE CBC W/ DIFF WBC 15034 Absolute Monocyte 742-7 645 /ul 024 [facility] [address] [place] [address] 66308 COMPLETE CBC W/ DIFF WBC 48383 Absolute Eosinophil 711-2 533 /ul 024 [facility] [address] [place] [address] 56363 COMPLETE CBC W/ DIFF WBC 61082 Absolute Basophil 704-7 56 /ul 024 [facility] [address] [place] [address] 57704 [id number] IN 4548-4 Glyco HGB A1C 33971-1 6.1 % 024 [facility] [address] [place] [address] 73630 [id number] IN 4548-4 eAG 13923-2 128 mg/dL 024 [facility] [address] [place], [place] [address] [address] CHEM 14 (METABOLIC PANEL) 96592 Glucose 2345-7 99 mg/dL [facility] [address] [place] [address] CHEM 14 (METABOLIC PANEL) 77810 BUN 3094-0 9 mg/dL [facility] [address] [place] [address] CHEM 14 (METABOLIC PANEL) 95099 Creatinine 2160-0 0.9 mg/dL [facility] [address] [place] [address] CHEM 14 (METABOLIC PANEL) 62236 BUN/Creat Ratio 3097-3 9.5 [facility] [address] [place] [address] CHEM 14 (METABOLIC PANEL) 38071 GFR Estimated 50972-6 92 mL/min/1.73 m2 [facility] [address] [place] [address] 85539 CHEM 14 (METABOLIC PANEL) 84022 Sodium 2951-2 142 mmol/L [facility] [address] [place] [address] 06431 CHEM 14 (METABOLIC PANEL) 54880 Potassium 2823-3 4.5 mmol/L [facility] [address] [place] [address] 39060 CHEM 14 (METABOLIC PANEL) 43158 Chloride 2075-0 111 mmol/L [facility] [address] [place] [address] 67165 CHEM 14 (METABOLIC PANEL) 52915 Total CO2 2028-9 24 mmol/L [facility] [address] [place] [address] 95904 CHEM 14 (METABOLIC PANEL) 28700 Anion Gap 1863-0 11.5 mEq/L [facility] [address] [place] [address] 90389 CHEM 14 (METABOLIC PANEL) 30093 Calculated Serum Osmolality 37137-6 293 mOsm/kg [facility] [address] [place] [address] 53865 CHEM 14 (METABOLIC PANEL) 98394 Albumin 42807-9 4.0 g/dL [facility] [address] [place] [address] 65479 CHEM 14 (METABOLIC PANEL) 24753 Total Protein 2885-2 7.0 g/dL [facility] [address] [place] [address] 95898 CHEM 14 (METABOLIC PANEL) 56646 Globulin 2336-6 3.0 g/dL 024 [facility] [address] [place] [address] CHEM 14 (METABOLIC PANEL) 63253 Albumin/Globulin Ratio 1759-0 1.3 024 [facility] [address] [place] [address] CHEM 14 (METABOLIC PANEL) 36912 ALK PHOS 6768-6 84.00 U/L 024 [facility] [address] [place] [address] CHEM 14 (METABOLIC PANEL) 52342 SGOT/AST 1920-8 23 U/L 024 [facility] [address] [place] [address] CHEM 14 (METABOLIC PANEL) 20496 SGPT/ALT 1743-4 26 U/L 024 [facility] [address] [place] [address] 56734 CHEM 14 (METABOLIC PANEL) 22435 Total Bilirubin 1975-2 0.6 mg/dL 024 [facility] [address] [place] [address] 12047 CHEM 14 (METABOLIC PANEL) 18502 Calcium 73328-1 9.7 mg/dL 024 [facility] [address] [place] [address] CHEM 14 (METABOLIC PANEL) 80273 Corrected Calcium 21904-0 9.9 mg/dL 024 [facility] [address] [place] [address] 43498 Hemoccult Screening Immunoassay G0328 Fecal Occult Blood Test (FOBT) Screening 69957-1 NO SPECIMEN RECEIVED 024 [facility] [address] [place] [address] 70284 [id number] IN 4548-4 Glyco HGB A1C 87923-1 7.4 % 024 [facility] [address] [place] [address] 76967 [id number] IN 4548-4 eAG 93815-3 166 mg/dL 024 [facility] [address] [place] [address] 50268 CHEM 14 (METABOLIC PANEL) 74335 Glucose 2345-7 112 mg/dL 024 [facility] [address] [place] [address] 41229 CHEM 14 (METABOLIC PANEL) 88110 BUN 3094-0 23 mg/dL 024 [facility] [address] [place] [address] CHEM 14 (METABOLIC PANEL) 38394 Creatinine 2160-0 1.5 mg/dL 024 [facility] [address] [place] [address] CHEM 14 (METABOLIC PANEL) 71339 BUN/Creat Ratio 3097-3 15.6 024 [facility] [address] [place] [address] 24418 CHEM 14 (METABOLIC PANEL) 56252 GFR Estimated 97059-6 54 mL/min/1.73 m2 024 [facility] [address] [place] [address] CHEM 14 (METABOLIC PANEL) 29849 Sodium 2951-2 138 mmol/L 024 [facility] [address] [place] [address] CHEM 14 (METABOLIC PANEL) 90193 Potassium 2823-3 4.8 mmol/L 024 [facility] [address] [place] [address] 26010 CHEM 14 (METABOLIC PANEL) 17033 Chloride 2075-0 99 mmol/L 024 [facility] [address] [place] [address] 78536 CHEM 14 (METABOLIC PANEL) 46702 Total CO2 2028-9 26 mmol/L 024 [facility] [address] [place] [address] 69165 CHEM 14 (METABOLIC PANEL) 08266 Anion Gap 1863-0 17.8 mEq/L 024 [facility] [address] [place] [address] 62383 CHEM 14 (METABOLIC PANEL) 84344 Calculated Serum Osmolality 45315-2 290 mOsm/kg 024 [facility] [address] [place] [address] 62097 CHEM 14 (METABOLIC PANEL) 49493 Albumin 40904-6 4.3 g/dL 024 [facility] [address] [place] [address] 71392 CHEM 14 (METABOLIC PANEL) 05257 Total Protein 2885-2 6.8 g/dL 024 [facility] [address] [place] [address] 28282 CHEM 14 (METABOLIC PANEL) 62246 Globulin 2336-6 2.5 g/dL 024 [facility] [address] [place] [address] 81794 CHEM 14 (METABOLIC PANEL) 22801 Albumin/Globulin Ratio 1759-0 1.7 024 [facility] [address] [place] [address] 00242 CHEM 14 (METABOLIC PANEL) 03658 ALK PHOS 6768-6 58.00 U/L 024 [facility] [address] [place] [address] 51712 CHEM 14 (METABOLIC PANEL) 54491 SGOT/AST 1920-8 19 U/L 024 [facility] [address] [place] [address] 89739 CHEM 14 (METABOLIC PANEL) 08155 SGPT/ALT 1743-4 19 U/L 024 [facility] [address] [place] [address] 87633 CHEM 14 (METABOLIC PANEL) 26291 Total Bilirubin 1975-2 0.6 mg/dL 024 [facility] [address] [place] [address] 29531 CHEM 14 (METABOLIC PANEL) 63805 Calcium 03065-0 9.9 mg/dL 024 [facility] [address] [place] [address] 58847 CHEM 14 (METABOLIC PANEL) 06762 Corrected Calcium 28176-1 9.8 mg/dL 024 [facility] [address] [place] [address] 01116 MICROALBUMIN (URINE) 18890 Microalbumin 92370-1 1.7 mg/dL 024 [facility] [address] [place] [address] 95475 MICROALBUMIN (URINE) 05827 Microalbumin/Cre atinine Ratio 14037-5 6 MCG/MGCREAT 024 [facility] [address] [place] [address] 09945 MICROALBUMIN (URINE) 36150 Urine Creatinine 2161-8 275.00 mg/dL 024 [facility] [address] [place] [address] 09998 CHEM 14 (METABOLIC PANEL) 20072 Glucose 2345-7 NO SPECIMEN RECEIVED mg/dL 024 [facility] [address] [place] [address] 47151 CHEM 14 (METABOLIC PANEL) 63650 BUN 3094-0 NO SPECIMEN RECEIVED mg/dL 024 [facility] [address] [place] [address] 13030 CHEM 14 (METABOLIC PANEL) 69778 Creatinine 2160-0 NO SPECIMEN RECEIVED mg/dL 024 [facility] [address] [place] [address] 29278 CHEM 14 (METABOLIC PANEL) 30537 BUN/Creat Ratio 3097-3 NO SPECIMEN RECEIVED 024 [facility] [address] [place] [address] 89198 CHEM 14 (METABOLIC PANEL) 73181 GFR Estimated 20203-7 NO SPECIMEN RECEIVED mL/min/1.73 m2 12/29/ 024 [facility] [address] [place] [address] 09141 CHEM 14 (METABOLIC PANEL) 13970 Sodium 2951-2 NO SPECIMEN RECEIVED mmol/L 12/29/ 024 [facility] [address] [place] [address] 80675 CHEM 14 (METABOLIC PANEL) 10758 Potassium 2823-3 NO SPECIMEN RECEIVED mmol/L 12/29/ 024 [facility] [address] [place] [address] 85852 CHEM 14 (METABOLIC PANEL) 47262 Chloride 2075-0 NO SPECIMEN RECEIVED mmol/L 024 [facility] [address] [place] [address] 81000 CHEM 14 (METABOLIC PANEL) 17582 Total CO2 2028-9 NO SPECIMEN RECEIVED mmol/L 12/29/ 024 [facility] [address] [place] [address] 71827 CHEM 14 (METABOLIC PANEL) 93677 Anion Gap 1863-0 NO SPECIMEN RECEIVED mEq/L 024 [facility] [address] [place] [address] 76467 CHEM 14 (METABOLIC PANEL) 86839 Calculated Serum Osmolality 53483-9 NO SPECIMEN RECEIVED mOsm/kg 12/29/ 024 [facility] [address] [place] [address] 18540 CHEM 14 (METABOLIC PANEL) 17625 Albumin 59184-5 NO SPECIMEN RECEIVED g/dL 12/29/ 024 [facility] [address] [place] [address] 60208 CHEM 14 (METABOLIC PANEL) 10307 Total Protein 2885-2 NO SPECIMEN RECEIVED g/dL 12/29/ 024 [facility] [address] [place] [address] 79889 CHEM 14 (METABOLIC PANEL) 00398 Globulin 2336-6 NO SPECIMEN RECEIVED g/dL 12/29/ 024 [facility] [address] [place] [address] 71264 CHEM 14 (METABOLIC PANEL) 64209 Albumin/Globulin Ratio 1759-0 NO SPECIMEN RECEIVED 12/29/ 024 [facility] [address] [place] [address] 40426 CHEM 14 (METABOLIC PANEL) 03215 ALK PHOS 6768-6 NO SPECIMEN RECEIVED U/L 12/29/ 024 [facility] [address] [place] [address] 00681 CHEM 14 (METABOLIC PANEL) 11301 SGOT/AST 1920-8 NO SPECIMEN RECEIVED U/L 03//2 024 [facility] [address] [place] [address] CHEM 14 (METABOLIC PANEL) 73205 SGPT/ALT 1743-4 NO SPECIMEN RECEIVED U/L 12/29/ 024 [facility] [address] [place] [address] CHEM 14 (METABOLIC PANEL) 54993 Total Bilirubin 1975-2 NO SPECIMEN RECEIVED mg/dL // 024 [facility] [address] [place] [address] CHEM 14 (METABOLIC PANEL) 95883 Calcium 19770-0 NO SPECIMEN RECEIVED mg/dL //2 024 [facility] [address] [place] [address] CHEM 14 (METABOLIC PANEL) 19392 Corrected Calcium 10799-7 NO SPECIMEN RECEIVED mg/dL // 024 [facility] [address] [place] [address] [id number] IN 4548-4 Glyco HGB A1C 19465-4 NO SPECIMEN RECEIVED % 12/29/ 024 [facility] [address] [place] [address] [id number] IN 4548-4 eAG 55177-2 NO SPECIMEN RECEIVED mg/dL 12/29/ 024 [facility] [address] [place] [address] 89853 CBC 48161 WBC 6690-2 NO SPECIMEN RECEIVED K/ul 12/29/ 024 [facility] [address] [place] [address] 39330 CBC 66778 RBC 789-8 NO SPECIMEN RECEIVED M/uL // 024 [facility] [address] [place] [address] 97504 CBC 96886 Hemoglobin 718-7 NO SPECIMEN RECEIVED g/dL 12/29/ 024 [facility] [address] [place] [address] 82420 CBC 47994 Hematocrit 4544-3 NO SPECIMEN RECEIVED % 03//2 024 [facility] [address] [place] [address] 43729 CBC 09267 MCV 787-2 NO SPECIMEN RECEIVED fL // 024 [facility] [address] [place] [address] 96494 CBC 08808 MCH 785-6 NO SPECIMEN RECEIVED pg //2 024 [facility] [address] [place] [address] CBC 11795 MCHC 786-4 NO SPECIMEN RECEIVED g/dL 12/29/ 024 [facility] [address] [place] [address] CBC 78479 RDW 788-0 NO SPECIMEN RECEIVED % 03// 024 [facility] [address] [place] [address] 04122 CBC 23447 Platelet Count 777-3 NO SPECIME N RECEIVED K/uL 024 [facility] [address] [place] [address] 51797 CBC 45161 MPV 13450-2 NO SPECIMEN RECEIVED fL 024 [facility] [address] [place] [address] 31511 CHOLESTEROL 12313 Cholesterol 2093-3 154 mg/dL 023 [facility] [address] [place] [address] 86253 CHEM 14 (METABOLIC PANEL) 69769 Glucose 2345-7 173 mg/dL 023 [facility] [address] [place] [address] 59260 CHEM 14 (METABOLIC PANEL) 41988 BUN 3094-0 17 mg/dL 023 [facility] [address] [place] [address] 57759 CHEM 14 (METABOLIC PANEL) 42240 Creatinine 2160-0 1.1 mg/dL 023 [facility] [address] [place] [address] 55939 CHEM 14 (METABOLIC PANEL) 75259 BUN/Creat Ratio 3097-3 16.0 023 [facility] [address] [place] [address] 85008 CHEM 14 (METABOLIC PANEL) 94741 GFR Estimated 79946-5 81 mL/min/1.73 m2 023 [facility] [address] [place] [address] 28529 CHEM 14 (METABOLIC PANEL) 19138 Sodium 2951-2 143 mmol/L 023 [facility] [address] [place] [address] 92112 CHEM 14 (METABOLIC PANEL) 29455 Potassium 2823-3 4.4 mmol/L 023 [facility] [address] [place] [address] 79270 CHEM 14 (METABOLIC PANEL) 68021 Chloride 2075-0 109 mmol/L 023 [facility] [address] [place] [address] 70513 CHEM 14 (METABOLIC PANEL) 21709 Total CO2 2028-9 26 mmol/L 023 [facility] [address] [place] [address] 27996 CHEM 14 (METABOLIC PANEL) 36503 Anion Gap 1863-0 12.4 mEq/L 023 [facility] [address] [place] [address] 37584 CHEM 14 (METABOLIC PANEL) 38409 Calculated Serum Osmolality 88159-6 302 mOsm/kg 023 [facility] [address] [place] [address] CHEM 14 (METABOLIC PANEL) 48963 Albumin 97942-2 3.7 g/dL 023 [facility] [address] [place] [address] CHEM 14 (METABOLIC PANEL) 13829 Total Protein 2885-2 6.6 g/dL 023 [facility] [address] [place] [address] CHEM 14 (METABOLIC PANEL) 47256 Globulin 2336-6 2.9 g/dL 023 [facility] [address] [place] [address] CHEM 14 (METABOLIC PANEL) 11976 Albumin/Globulin Ratio 1759-0 1.3 023 [facility] [address] [place] [address] CHEM 14 (METABOLIC PANEL) 72324 ALK PHOS 6768-6 112.00 U/L 023 [facility] [address] [place] [address] 07374 CHEM 14 (METABOLIC PANEL) 19285 SGOT/AST 1920-8 33 U/L 023 [facility] [address] [place] [address] 58523 CHEM 14 (METABOLIC PANEL) 71774 SGPT/ALT 1743-4 37 U/L 023 [facility] [address] [place] [address] CHEM 14 (METABOLIC PANEL) 67790 Total Bilirubin 1975-2 0.5 mg/dL 023 [facility] [address] [place] [address] 21996 CHEM 14 (METABOLIC PANEL) 57642 Calcium 79600-6 9.3 mg/dL 023 [facility] [address] [place] [address] CHEM 14 (METABOLIC PANEL) 35721 Corrected Calcium 94398-9 9.7 mg/dL 023 [facility] [address] [place] [address] TSH 56738 TSH 39639-4 2.240 uIU/mL 023 [facility] [address] [place] [address] COMPLETE CBC W/ DIFF WBC 39195 WBC 6690-2 5.6 K/ul 023 [facility] [address] [place] [address] COMPLETE CBC W/ DIFF WBC 35625 RBC 789-8 5.33 M/uL 023 [facility] [address] [place] [address] COMPLETE CBC W/ DIFF WBC 51070 Hemoglobin 718-7 14.8 g/dL 023 [facility] [address] [place] [address] COMPLETE CBC W/ DIFF WBC 28755 Hematocrit 4544-3 46.2 % 023 [facility] [address] [place] [address] COMPLETE CBC W/ DIFF WBC 90565 MCV 787-2 86.8 fL 023 [facility] [address] [place] [address] COMPLETE CBC W/ DIFF WBC 84442 MCH 785-6 27.8 pg 023 [facility] [address] [place] [address] COMPLETE CBC W/ DIFF WBC 32968 MCHC 786-4 32.1 g/dL 023 [facility] [address] [place] [address] 47221 COMPLETE CBC W/ DIFF WBC 62610 RDW 788-0 17.4 % 023 [facility] [address] [place] [address] 07732 COMPLETE CBC W/ DIFF WBC 10687 Platelet Count 777-3 248 K/uL 023 [facility] [address] [place] [address] 43844 COMPLETE CBC W/ DIFF WBC 92318 MPV 46060-7 7.2 fL 023 [facility] [address] [place] [address] 18978 COMPLETE CBC W/ DIFF WBC 52200 Neutrophils % 770-8 48.7 % 023 [facility] [address] [place] [address] 20359 COMPLETE CBC W/ DIFF WBC 58735 Lymphocytes % 736-9 32.9 % 023 [facility] [address] [place] [address] 45988 COMPLETE CBC W/ DIFF WBC 93927 Monocytes % 5905-5 12.2 % 023 [facility] [address] [place] [address] 13810 COMPLETE CBC W/ DIFF WBC 63877 Eosinophils % 713-8 5.2 % 023 [facility] [address] [place] [address] 92626 COMPLETE CBC W/ DIFF WBC 02708 Basophils% 706-2 1.0 % 023 [facility] [address] [place] [address] COMPLETE CBC W/ DIFF WBC 38267 Absolute Neutrophil 751-8 2727 /ul 023 [facility] [address] [place] [address] COMPLETE CBC W/ DIFF WBC 56835 Absolute Lymphocyte 15939-4 1842 /ul 023 [facility] [address] [place] [address] COMPLETE CBC W/ DIFF WBC 17884 Absolute Monocyte 742-7 683 /ul 023 [facility] [address] [place] [address] COMPLETE CBC W/ DIFF WBC 14169 Absolute Eosinophil 711-2 291 /ul 023 [facility] [address] [place] [address] COMPLETE CBC W/ DIFF WBC 64408 Absolute Basophil 704-7 56 /ul 023 [facility] [address] [place] [address] DIRECT LDL - CHOL 30839 LDL-Direct 65534-4 83 mg/dL 0 023 [facility] [address] [place] [address] TRIGLYCERIDES 81464 Triglycerides 2571-8 206 mg/dL 023 [facility] [address] [place] [address] TRIGLYCERIDES 56532 VLDL 54285-7 41 mg/dL 023 [facility] [address] [place] [address] [id number] IN [facility] Glyco HGB A1C 12007-5 9.5 % 023 [facility] [address] [place] [address] [id number] IN [facility] eAG 88937-4 226 mg/dL 023 [facility] [address] [place] [address] HDL - CHOL 73585 HDL 2085-9 44 mg/dL 023 [facility] [address] [place] [address] HDL - CHOL 44904 CHD 42050-2 29 % 023 [facility] [address] [place] [address] Procedures Procedure Codes Date Most recent A1c = 7.0% and < 8.0% CPT-4: 3051F 08/25/2024 MED LIST DOCD IN [facility] CPT-4: 1159F 08/25/2024 RVW MEDS BY RX/DR IN [facility] CPT-4: 1160F 2023 Discharge Meds Reconciled w/ Current Med list CP T-4: 1111F 08/25/2024 Amnt pain noted; none prsnt CPT-4: 1126F 07/29 Screening for clinical depre ssion is positive and follow up plan documented CPT-4: G8431 06/17/2024 MED LIST DOCD IN [facility] CPT-4: 1159F 06/17/2024 RVW MEDS BY RX/DR IN [facility] CPT-4: 1160F 2023 Discharge Meds Reconciled w/ Current Med list CP T-4: 1111F 06/17/2024 Amnt pain noted; pain prsnt CPT-4: 1125F 05/28 Screening for clinical depre ssion is positive and follow up plan documented CPT-4: G8431 06/17/2024 Documentation of patient hav ing a dx of depression or bipolar disorder CPT-4: G9717 04/02/2024 Screening for clinical depre ssion is positive and follow up plan documented CPT-4: G8431 04/02/2024 Discharge Meds Reconciled w/ Current Med list CP T-4: 1111F 04/02/2024 Amnt pain noted; pain prsnt CPT-4: 1125F 04/2024 MED LIST DOCD IN [facility] CPT-4: 1159F 04/02/2024 RVW MEDS BY RX/DR IN [facility] CPT-4: 1160F 2023 Colorectal Screening Screening for Colorectal Cancer/Screened:/*Yes colonoscopy was performed:/Negative: DOS: CPT-4: CRSUnknown 023 Y6U-Jtfjsugzabhhyrm CPT-4: 82510 Unknown K1M-Ctmjreaqkagdkvo CPT-4: 66270 Unknown F1H-Xdxakbevrjsprpe CPT-4: 77530 Unknown I0H-Xqzrufqodzfhczi CPT-4: 08654 Unknown Fecal Occult Blood Test (FOBT) Screening CPT-4: G0328 Unknown Vital Signs Date Vital 08/25/2024 Blood Pressure 1: 134/60 Code: 8480-6 Heart Rate 1: 87 bpm Respiratory Rate: 17 bpm SpO2: 97% Temperature: 36.2 (C) / 97.2 (F) Weight: 184 lbs Code: 36000-9 06/17/2024 Blood Pressure 1: 100/70 Code: 8480-6 BMI: 34.8 Code: 74055-9 Heart Rate 1: 87 bpm Height: 5'1 Code: 8302-2 Respiratory Rate: 18 bpm SpO2: 97% Temperature: 35.9 (C) / 96.7 (F) Weight: 184 lbs 3 oz Code: 54858-3 04/02/2024 Blood Pressure 1: 115/70 Code: 8480-6 Blood Pressure 2: 115/70 Code: 8480-6 BMI: 36.5 Code: 22240-6 Heart Rate 1: 82 bpm Height: 5'1 Code: 8302-2 Respiratory Rate: 18 bpm SpO2: 97% Temperature: 36.4 (C) / 97.5 (F) Weight: 193 lbs 2 oz Code: 86465-3 12/09/2023 Blood Pressure 1: 138/80 Code: 8480-6 Blood Pressure 1: 152/84 Code: 8480-6 BMI: 38.4 Code: 29579-0 Heart Rate 1: 79 bpm Height: 5'1 Code: 8302-2 Respiratory Rate: 16 bpm SpO2: 97% Temperature: 36.3 (C) / 97.4 (F) Weight: 203 lbs Code: 40303-5 06/10/2023 Blood Pressure 1: 120/78 Code: 8480-6 Blood Pressure 2: 119/80 Code: 8480-6 Heart Rate 1: 82 bpm Respiratory Rate: 16 bpm SpO2: 97% Temperature: 36.7 (C) / 98.0 (F) Weight: 219 lbs 14 oz Code: 33209-2 Reason For Visit Reason For Visit Effective [...] running in the 120 to 125 range established patient visit 06/17/2024 diabetes mellitus 06/17/2024 hyperlipidemia disease 06/17/2024 HTN 06/17/2024 CAD 06/17/2024 post ED/hospital visit 06/17/2024 fainting/passing out episodes 06/17/2024 established patient visit 04/02/2024 HTN 04/02/2024 hyperlipidemia disease 04/02/2024 diabetes mellitus 04/02/2024 CAD 04/02/2024 tremor 04/02/2024 diabetes mellitus 12/09/2023 HTN 12/09/2023 hyperlipidemia disease 12/09/2023 obesity 12/09/2023 diabetic neuropathy 12/09/2023 bipolar disorder 12/09/2023 HTN 06/10/2023 CAD 06/10/2023 bipolar disorder 06/10/2023 anxiety 06/10/2023 gout 06/10/2023 Encounters Encounter Performer Location Location Address Codes Artie e ([id number]) Home or Residence Visit Est Pt - Moderate Level, 40 mins Diagnosis: HTN (hypertension)[I CD10: I10] Diagnosis: CAD (coronary artery disease)[ICD10: I25.10] Diagnosis: Bipolar disorder[ICD10: F31.9] Diagnosis: DM2 (diabetes mellitus, type 2)[ICD10: E11.9] Diagnosis: Seizure disorder[ICD10: G40.909] Erick [facility] [address] [place] [address] CPT-4: 13762 08/25/2024 ([id number]) Home or Residence Visit Est Pt - Moderate Level, 40 mins Diagnosis: At high risk for falls[ICD10: Z91.81] Diagnosis: Bipolar disorder[ICD10: F31.9] Diagnosis: CAD (coronary artery disease)[ICD10: I25.10] Diagnosis: DM2 (diabetes mellitus, type 2)[ICD10: E11.9] Diagnosis: 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] Diagnosis: HLD (hyperlipidemia) [ICD10: E78.5] Diagnosis: Hemiplegia[ICD10 : G81.90] Diagnosis: H/O heart artery stent[ICD10: Z95.5] Diagnosis: Gout[ICD10: M10.9] Diagnosis: Frailty[ICD10: R54] Diagnosis: HTN (hypertension)[I CD10: I10] Diagnosis: Hx of syncope[ICD10: Z87.898] Diagnosis: Morbid (severe) obesity due to excess calories[ICD10: E66.01] Diagnosis: Spinal cord disorder[ICD10: G95.9] Diagnosis: Tremors of nervous system[ICD10: R25.1] Diagnosis: Vascular disease[ICD10: I99.9] Diagnosis: Neuropathy[ICD10 : G62.9] Diagnosis: Recurrent falls[ICD10: R29.6] Diagnosis: Leg edema[ICD10: R60.0] Diagnosis: Syncope and collapse[ICD10: R55] Diagnosis: Pulmonary embolism[ICD10: I26.99] Diagnosis: Malaise and fatigue[ICD10: R53.81] Diagnosis: Other fatigue[ICD10: R53.83] Karen Calero [facility] [address] [place] [address] CPT-4: 62585 06/17/2024 ([id number]) Home or Residence Visit Est Pt - Moderate Level, 40 mins Diagnosis: Bipolar disorder[ICD10: F31.9] Diagnosis: CAD (coronary artery disease)[ICD10: I25.10] Diagnosis: DM2 (diabetes mellitus, type 2)[ICD10: E11.9] Diagnosis: 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] Diagnosis: Gout[ICD10: M10.9] Diagnosis: H/O heart artery stent[ICD10: Z95.5] Diagnosis: Hemiplegia[ICD10 : G81.90] Diagnosis: HLD (hyperlipidemia) [ICD10: E78.5] Diagnosis: HTN (hypertension)[I CD10: I10] Diagnosis: Morbid (severe) obesity due to excess calories[ICD10: E66.01] Diagnosis: Neuropathy[ICD10 : G62.9] Diagnosis: Spinal cord disorder[ICD10: G95.9] Diagnosis: Vascular disease[ICD10: I99.9] Diagnosis: Tremors of nervous system[ICD10: R25.1] Diagnosis: Frailty[ICD10: R54] Diagnosis: Recurrent falls[ICD10: R29.6] Diagnosis: At high risk for falls[ICD10: Z91.81] Diagnosis: Hx of syncope[ICD10: Z87.898] Diagnosis: Colon cancer screening[ICD10: Z12.11] Karen Calero [facility] [address] [address] CPT-4: 66940 04/02/2024 ([id number]) Home or Residence Visit Est Pt - [...] E66.01] Diagnosis: 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] Marivel Lloyd [facility] [address] [place], [place] [address] CPT-4: 01647 12/09/2023 ([id number]) 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 or 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, 60 mins Diagnosis: Gout[ICD10: M10.9] Diagnosis: DM2 (diabetes mellitus, type 2)[ICD10: E11.9] Diagnosis: CAD (coronary artery disease)[ICD10: I25.10] Diagnosis: H/O heart artery stent[ICD10: Z95.5] Diagnosis: Bipolar disorder[ICD10: F31.9] Diagnosis: HTN (hypertension)[I CD10: I10] Diagnosis: Neuropathy[ICD10 : G62.9] Diagnosis: Leg edema[ICD10: R60.0] Diagnosis: HLD (hyperlipidemia) [ICD10: E78.5] Marivel Lloyd [facility] [address] [place], [place] [address] CPT-4: 99181 06/10/2023 Plan of Care Planned Activity Notes Codes Status Date Patient Education: Patient Medication Summary Completed 08/27/2024 Visit Plan: I10-401.9 HTN (hyper tension) (good control--no medication changes) I25.10-414.00 CAD (coronary artery disease) (followed by cardiology) F31.9-296.80 Bipolar disorder (followed by [facility]) E11.9-250.00 DM2 (diabetes mellitus, type 2) (labs drawn today) 08/25/2024 Appointment: Erick Richl: [address] [place] [address] E180 08/25/2024 Patient Education: Patient Medication Summary Completed 08/25/2024 Patient Education: Hypertension Completed 08/25/2024 Patient Education: Diabetes Complete d 08/25/2024 Visit Plan: Z91.81-V15.88 At hig h risk [...] R29.6-V15.88 Recurrent falls R60.0-782.3 Leg edema 06/17/2024 Appointment: Karen Calero WPtel: [address] [place] [address] E180 06/17/2024 Patient Education: Patient Medication Summary Completed 06/17/2024 Patient Education: Hypertension Completed 06/17/2024 Patient Education: Heart Disease Completed 06/17/2024 Patient Education: Diabetes Complete d 06/17/2024 Patient Education: Obesity Completed 06/17/2024 Visit Plan: F31.9-296.80 Bipolar disorder--- ---cont buspirone, [...] neurology. R54-797 Frailty---- ---cont supportive therapy. 04/02/2024 Appointment: Karen Calero WPtel: [address] [place] [address] E180 04/02/2024 Patient Education: Obesity Completed 04/02/2024 Patient Education: Heart Disease Completed 04/02/2024 Patient Education: Patient Medication Summary Completed 04/02/2024 Patient Education: Hypertension Completed 04/02/2024 Patient Education: Diabetes Complete d 04/02/2024 Care Plan: External Laboratory Tests Ordered 04/02/2024 Visit Plan: he will see mikaela gerard pcp this month 12/09/2023 Appointment: Marivel Lloyd WPtel: [address] [place] [address] E180 12/09/2023 Patient Education: Patient Medication Summary Completed 12/09/2023 Patient Education: Obesity Completed 12/09/2023 Patient Education: lisinopril- [employer] Coupon [id number] https://www.[facility].[employer]/[facility]/resources/getResource/ [email or web address].pdf Completed 12/09/2023 Patient Education: Diabetes Complete d 12/09/2023 Patient Education: Hypertension Completed 12/09/2023 Appointment: Marivel Lloyd WPtel: [address] [place] [address] E180 09/24/2023 Appointment: Marivel Lloyd WPtel: [address] [place] [address] N180 06/10/2023 Patient Education: Anxiety Completed 06/10/2023 Patient Education: Hypertension Completed 06/10/2023 Patient Education: Patient Medication Summary Completed 06/10/2023 Patient Education: Heart Disease Completed 06/10/2023 Appointment: Marivel Lloyd WPtel: [address] [place] [address] N180 05/15/2023 Referral: Housing Coordination Referral Initiated Referral: Pending Medical Records Information faxed MR request Order Faxed Instructions Comment Date . I10-401.9 HTN (hypertensio n) (good control--no medication changes) I25.10-414.00 CAD (coronary artery disease) (followed by cardiology) F31.9-296.80 Bipolar disorder (followed by [facility]) E11.9-250.00 DM2 (diabetes mellitus, type 2) (labs drawn today) 08/25/2024 ?? Keep all scheduled appts with providers and f/u as needed. 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 Notify provider for any issues via [facility] 24 hour line. [phone]. Z91.81-V15.88 At high risk for falls F31.9-296.80 [...] R29.6-V15.88 Recurrent falls R60.0-782.3 Leg edema 06/17/2024 ? Keep all scheduled appts with providers [...] ?? Notify provider for any issues via [facility] 24 hour line. [phone]. F31.9-296.80 Bipolar disorder--- ---cont buspirone, citalopram, duloxetine, [...] nervous system--- ---keep scheduled appt with neurology. R59-797 Frailty---- ---cont supportive therapy. 04/02/2024 . he will see new local pcp this month 0 12/09/2023 follow up with logistics director next month as planned bloodwork obtained today [...] Unknown 08/18/2023 Patient will see MD for JaPolar on regular basi s when needed.-DL Unknown 08/18/2023 Patient will take gout medication.-DL Unknown 08/18/2023 Interventions Section Planned Intervention Status Date Patient has psychiatrist/psychologist available when needed. Active 08/18/2023 Patient will be taking gout medication as ordere d. Active 08/18/2023 Advance Directives No Advance Directive data
--- OUTSIDE RECORDS SUMMARY | 2025-02-10 22:20 | XMS_ITS | Patient Health Record ---
Author Organization [facility] Address [address] [place] [address] Care Team Providers Care Golf Professional Name Role Phone Hung Mixon Unavailable [phone] Allergies No Known Allergies Reason For Referral No Information Medications Medication SIG (Take, Route, Frequency, Duration) Notes Start Date End Date Status Trazadone Unknown Percocet 325 mg-5 mg 1-2 tab(s) orally e very 6 hours as needed for pain. 10/04/2021 Unknown TraMADol Hydrochloride 50 mg 1 tab(s) orally Every 8 hours as needed for pain. 08/23/2021 Unknown lamoTRIgine Unknown lisinopril Unknown lorazepam Unknown nitroglycerin Unknow n Oxycodone Unknown pantoprazole Unknown ranolazine Unknown sertraline Unknown tamsulosin Unknown Social History Tobacco Use: Social History Observation Description Date Details (start date - stop date) Never Smoker NA - NA Smoking Question Answer Notes Are you a: Non Smoker Problems Problem Type SNOMED Code ICD Code Onset Dates Problem Status W/U Status Risk Notes Problem 094304526 Lumbago with sciatica, right side (M54.41) Active confirmed Problem 190226135 Lumbago with sciatica, left side (M54.42) Active confirmed Problem 04897386 Pain in left shoulder (M25.512) Active confirmed Problem 450149584098865 Impingement syndrome of left shoulder (M75.42) Active confirmed Problem 041318236 Bicipital tendinitis of left shoulder (M75.22) Active confirmed Problem 35457304 Other chronic pain (G89.29) Active confirmed Problem 057693097 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) Active confirmed Problem 6209829046842248 Nontraumatic complete tear of left rotator cuff (M75.122) Active confirmed Plan Of Treatment Pending Test Test Name Order Date Lumbar Spine 2V (AP,Lat) 10/17/2020 Shoulder, Left 3V (AP Ext,Axillary,Y) Insurance Providers Payer Name Payer Address Payer Phone Subscriber Number Group Number Insured Name Patient Relationship to Insured Coverage Start Date Coverage End Date [facility] ([facility]) [address] [address] [place] [address] [id number] Justin Garrido Self - patient is the insured 1 MEDICAID [address] [place] [address] [id number] Justin Garrido Self - patient is the insured Medical (General) History Medical History History ICD Code Stroke Yes, High Blood Pressure Yes, Diabetes Yes, Surgical History Surgery Date(Month/Year)
--- OUTSIDE RECORDS SUMMARY | 2025-02-10 22:20 | XMS_ITS | Clinical Summary ---
Author Organization [facility] Address [address] [place] [address], [address] Care Team Providers Care Security Sales Consultant Name Role Phone Unavailable Primary Care Provider Unavailabl e Social History Tobacco Use Types Packs/Day Years Used Date Smoking Tobacco: Never Assessed Sex and Gender Information Value Date Recorded Sex Assigned at Not on file Gender Identity Not on file Sexual Orientation Not on file Plan of Treatment Not on file
[2025-02-10 23:04] VITALS: BP 165/81; PULSE 70; RESP 16; TEMP 36.9; O2SAT 98
--- NOTE | 2025-02-10 23:07 | PC.NURSE ---
pt states he passed a kidney stone yesterday. pt states he has small amounts of urine when he goes.
[2025-02-11] VITALS: BP 140/61; PULSE 68; RESP 16; TEMP 36.8; O2SAT 98
[2025-02-11 00:01] LABS: Glucose, Whole Blood 91 mg/dL (60-115)
[2025-02-11] MEDS: methocarbamoL 750 MG TABLET PO (00:43)
[2025-02-11] MEDS: Ketorolac Tromethamine 15 MG/ML VIAL IM (00:43)
[2025-02-11 01:14] VITALS: BP 140/61; PULSE 68; RESP 16; TEMP 36.8; O2SAT 98
== END 2025-02-11 01:16 | disposition home or self-care (01) ==
PROVIDERS: Emergency Provider Emergency Medicine
DX: M54.16 Radiculopathy, lumbar region (principal); M54.41 Lumbago with sciatica, right side; R20.2 Paresthesia of skin; Z87.442 Personal history of urinary calculi
CPT/HCPCS: 36415; 72100; 80053; 81003; 82947; 85025; 96372; 99284; J1885

== ENCOUNTER → 2025-02-10 20:30 | Outpatient (BNV) | payer OTHER, SELFPAY | PROVIDERS: Visit Provider Radiology Diagnostic Radiology | DX: M51.360 Other intervertebral disc degeneration, lumbar region with discogenic back pain only (principal) | CPT/HCPCS: 72100 ==

== ENCOUNTER 2025-02-25 18:35 | Emergency (ER) | payer OTHER, SELFPAY ==
--- NOTE | ~2025-02-25 | CT_ITS ---
CLINICAL HISTORY: l flank pain CT abdomen and pelvis without contrast Comparison: None Findings: Pulmonary opacities concerning for pneumonitis/pneumonia, left worse than right. Mild cardiomegaly. Vascular and valve calcifications noted. Including phleboliths in the pelvis. 3 mm nephrolithiasis of the right kidney. 2 mm nephrolithiasis of the lower pole of the left kidney. Additional renal calcifications are favored to be vascular. Calcifications include imaged liver. The spleen is nonenlarged. Pancreas and gallbladder are unremarkable for noncontrast study. The adrenal glands are normal. Small periaortic and aortocaval lymph nodes are likely reactive. No small bowel obstruction. Imaged appendix is within normal limits (imaged 53 of series 3). No small bowel obstruction. Severe stool burden present, including the cecum. Prostate gland measures 5.1 cm transverse. Mild wall thickening of the urinary bladder is nonspecific. 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 Mild-moderate osteoarthritis of the hips with left-sided capsular calcifications. Degenerative changes of the spine including vacuum disc phenomenon at L4-L5 and multifocal facet arthropathy. Mild height loss of the T12 appears old. IMPRESSION: 1. Nonobstructing nephrolithiasis of both kidneys measure up to 3 mm. 2. No hydronephrosis. 3. Severe stool burden. No small bowel obstruction. 4. Pulmonary opacities concerning for pneumonitis/pneumonia, left worse than right. Recommend attention on follow-up to ensure resolution. This document has been electronically signed by: Deric Noel MD on 02/26/2025 02:06:21
--- NOTE | ~2025-02-25 | XR_ITS ---
CLINICAL HISTORY: chest pain 2 view chest x-ray Comparison: None Findings: Low lung volumes with mild atelectasis and crowding of the vasculature. Likely mild emphysematous changes. No consolidation, pneumothorax, or pleural effusion. Mild cardiomegaly. Degenerative changes include imaged AC joints. IMPRESSION: Low lung volumes with mild atelectasis This document has been electronically signed by: Deric Noel MD on 02/25/2025 20:12:09
--- NOTE | 2025-02-25 18:38 | ECG_ITS ---
Test Reason : CHEST PAIN Blood Pressure : */* mmHG Vent. Rate : 81 BPM Atrial Rate : 81 BPM P-R Int : 134 ms QRS Dur : 126 ms QT Int : 386 ms P-R-T Axes : 30 26 29 degrees QTcB Int : 448 ms Normal sinus rhythm with sinus arrhythmia Right bundle branch block Cannot rule out Inferior infarct , age undetermined Abnormal ECG No previous ECGs available Referred By: Saloni Aguilar Electronically Signed By: Chase Lucia
--- NOTE | 2025-02-25 18:42 | ED.CHESTPAIN ---
HPI - Chest Pain General Chief Complaint: Back Pain/Injury Stated Complaint: back pain; cp Time Seen by Provider: 02/26/25 00:03 Source: patient Mode of arrival: ambulatory Limitations: no limitations History of Present Illness ED Provider: HPI narrative: Patient's with history of chronic back pain got worse 3 month ago when he was moving a box does have history of coronary artery disease status post stent placement no history of kidney stone patient was seen here on 02/10 for same pain is localized mostly on the right side of the lumbar area in the flank radiating to the right leg no weakness of the lower extremity no bladder or bowel involvement patient also complaining of right-sided chest pain off and on especially on exertion with no radiation no diaphoresis does feel short winded especially on ambulation Related Data Previous Rx's ?Medication ?Instructions ?Recorded meloxicam 15 mg tablet 15 mg PO DAILY #10 tabs 02/11/25 methocarbamol 750 mg tablet 750 mg PO Q8H PRN pain, moderate 02/11/25 #15 tabs methylprednisolone 4 mg tablets in 4 mg PO QAM #21 ea 02/11/25 a dose pack (Medrol (Willis)) cyclobenzaprine 10 mg tablet 10 mg PO Q8H #20 tabs 02/26/25 oxycodone 5 mg tablet 5 mg PO Q6H PRN pain #20 tabs 02/26/25 Allergies Allergy/AdvReac Type Severity Reaction Status Date / Time No Known Allergies Allergy Verified 02/25/25 18:55 Review of Systems Review of Systems: Yes all other systems are reviewed and are negative [facility] Social History Social History Unable to assess alcohol history related to: Unable to respond, Unknown and Refusing to respond Alcohol intake: never Physical Exam Vital Signs: Vital Signs: Last Vital Signs Temp 97 F 02/26/25 03:15 Pulse 77 02/26/25 03:15 Resp 16 02/26/25 03:15 BP 118/79 02/26/25 03:15 Pulse Ox 98 02/26/25 03:15 O2 Del Method Room Air 02/26/25 03:15 BMI result Body Mass Index 32.8 Appearance: Alert. Oriented X3. No acute distress. Eyes: No pallor or icterus ENT: Pharynx normal. Oral Mucosa moist Neck: Normal inspection. Neck supple. CVS: Normal heart rate and rhythm. Pulses normal. Respiratory: No respiratory distress. Equal air entry bilateral, no wheezing/rales/rhonchi Abdomen: Soft and nontender. Bowel sounds are present, no mass palpable, R CVA tenderness ++ Skin: Skin warm and dry. Normal skin color. Normal skin turgor. Extremities: No lower extremity edema. No calf tenderness Back: Diffuse right paralumbar tenderness and sciatic notch tenderness SLR positive at 60 degrees on the right leg no motor weakness noticed not dermatomal sensory loss Neuro: Oriented X 3. No motor deficit. No sensory deficit.No cerebellar signs , cranial nerves II-XII intact Course Course Course Narrative: This is an RME performed by Jenna Aguilar CNP: Additional HPI, ROS, PE not included below will be deferred to primary provider. Patient is a 59-year-old male who presents to the emergency department for evaluation of ongoing lower back pain x 2-3 months. Reports he was seen here approximately 3 weeks ago, was given medication that is not helping. He states he currently resides in [place], he is visiting the the local area but plans to go back to [place] in 3 weeks. He would like to be seen by a back specialist however while he is here in [place]. Also having chest pain over the past 3-4 days, worsens during ambulation but also was experienced at rest. Pain has been constant. Associated with shortness of breath that as well he states his at rest. He is in no respiratory distress at this time. Plan: EKG, serum labs, viral serologies Medications Administered Discontinued Medications Generic Name Dose Route Start Last Admin Trade Name Gueroq PRN Reason Stop Dose Admin Cyclobenzaprine HCl 10 mg 02/26/25 00:24 02/26/25 01:03 Cyclobenzaprine Hcl 10 Mg Tablet PO 02/26/25 00:25 10 mg ONCE ONE Administration Morphine Sulfate 15 mg 02/26/25 00:24 02/26/25 01:03 Morphine Sulfate Immed Release 15 Mg Tablet PO 02/26/25 00:25 15 mg ONCE ONE Administration Medical Decision Making Medical Decision Making [facility] Narrative: Patient with right sciatica with diffuse tenderness on left paralumbar spinal lumbar x-ray done on 02/10 showed diffuse arthritic changes patient does have right flank pain urine is negative no history of kidney stone will do a CT scan to rule out renal pathology CT scan negative for acute patient denied any significant cough or shortness a breath Differential Diagnosis Differential Diagnoses: The differential diagnosis associated with the presentation includes Lab Data MDM Lab Attestation statement: I reviewed the patient's lab results. 02/25/25 19:40 02/25/25 19:40 Labs: Lab Results 02/25/25 02/25/25 Range/Units 19:40 19:45 WBC 10.0 (4.8-10.8) X10*3/uL RBC 5.06 (4.60-5.80) X10*6/uL Hgb 14.1 (14.0-18.0) g/dl Hct 41.9 L (42.0-52.0) % MCV 82.8 (80.0-98.0) fL MCH 27.9 (27.0-33.0) pg MCHC 33.7 (31.0-36.0) g/dl RDW 15.6 (11.0-16.0) % Plt Count 242 (160-400) X10*3/uL MPV 8.8 L (9.4-12.4) fL Immature Gran % (Auto) 0.3 (0.0-0.4) % Neut % (Auto) 51.8 (45-73) % Lymph % (Auto) 26.2 (20-40) % Morrill % (Auto) 9.7 (2-11) % Eos % (Auto) 11.3 H (0-4) % Baso % (Auto) 0.7 (0-2) % Lymph # (Auto) 2.6 (1.2-4.9) X10*3/uL Morrill # (Auto) 1.0 (0.1-1.2) X10*3/uL Eos # (Auto) 1.1 H (0.0-0.4) X10*3/uL Baso # (Auto) 0.1 (0.0-0.2) X10*3/uL Abs Immat Gran (auto) 0.03 (0.00-0.03) X10*3/uL Absolute Neuts (auto) 5.2 (2.0-8.3) x10*3/uL Absolute Nucleated RBC 0.000 (0.0-0.012) X10*3/uL Nucleated RBC % (auto) 0.0 (0.0-0.2) /100WBC Sodium 142 (135-145) mmol/L Potassium 3.9 (3.3-5.1) mmol/L Chloride 109 H (96-108) mmol/L Carbon Dioxide 22 (22-29) mmol/L Anion Gap 15 (12-20) BUN 21 H (9-16) mg/dL Creatinine 0.82 (0.5-1.4) mg/dL Estim Creat Clear Calc 84.0 Estimated GFR > 60 Random Glucose 115 (60-115) mg/dL Calcium 9.4 (8.4-10.2) mg/dL Magnesium 1.7 (1.6-2.6) mg/dL Total Bilirubin 0.5 (0.0-1.0) mg/dL AST 22 (5-37) U/L ALT 24 (0-40) U/L Alkaline Phosphatase 98 (39-117) U/L Troponin I High Sens < 2.7 (<3.5-35.0) ng/L B-Natriuretic Peptide 12 (<100) pg/mL Total Protein 6.6 (6.5-8.0) g/dL Albumin 4.0 (3.5-5.0) g/dL Lipase 44 (8-78) U/L Urine Color Yellow Urine Appearance Clear Urine pH 5.5 (5.0-9.0) Ur Specific [place] 1.025 (1.005-1.025) Urine Protein Negative (Neg-Trace) mg/dL Urine Glucose (UA) Negative (Negative) mg/dL Urine Ketones Trace (Negative) mg/dL Urine Blood Negative (Negative) Urine Nitrite Negative (Negative) Ur Leukocyte Esterase Negative (Negative) Influenza Type A (PCR) NEGATIVE (Negative) Influenza Type B (PCR) NEGATIVE (Negative) RSV RNA Qual (PCR) NEGATIVE (Negative) SARS-CoV-2 RNA (RT-PCR) NEGATIVE (Negative) Independent Interpretation I performed an independent interpretation of an: EKG and CT Scan Interpretation: Normal sinus rhythm with heart rate of 81 beats per minute right bundle-branch block normal axis normal intervals no acute ST-T changes no acute ischemia Radiology Impression Discussion of test interpretation with radiology: I have reviewed the radiologist's reading. Discharge Plan Discharge Clinical Impression: Low back pain, Sciatica Patient Disposition: Home, Self-Care Instructions: Sciatica (ED), Chronic Back Pain (DC) Additional Instructions: Take pain medication muscle relaxant as prescribed Follow up with your PCP Prescriptions: New oxycodone 5 mg tablet 5 mg PO Q6H PRN (Reason: pain) Qty: 20 0RF Rx Instructions: Partial Fill upon patient request. cyclobenzaprine 10 mg tablet 10 mg PO Q8H Qty: 20 0RF No Action methylprednisolone [Medrol (Willis)] 4 mg tablets,dose pack 4 mg PO QAM Qty: 21 0RF Rx Instructions: Take per package instructions methocarbamol 750 mg tablet 750 mg PO Q8H PRN (Reason: pain, moderate) Qty: 15 0RF meloxicam 15 mg tablet 15 mg PO DAILY Qty: 10 0RF Interventions: ED Discharge Assessment Last Done: 02/26/25 03:15 Discharge Date/Time: 02/26/25 03:16 Print Language: Ukrainian
[2025-02-25 18:53] VITALS: BP 118/79; PULSE 77; RESP 16; TEMP 36.1; O2SAT 98; BMI 32.8
[2025-02-25 19:44] LABS: MANUAL DIFF FLAG NO
[2025-02-25 19:46] LABS: Basophils Absolute Auto 0.1 X10*3/uL (0.0-0.2); Basophils Percent Auto 0.7 % (0-2); Eosinophils Absolute Auto 1.1 X10*3/uL (0.0-0.4); Eosinophils Percent Auto 11.3 % (0-4); Hematocrit 41.9 % (42.0-52.0); Hemoglobin 14.1 g/dl (14.0-18.0); Imm Gran Abs Auto 0.03 X10*3/uL (0.00-0.03); Imm Gran Pct Auto 0.3 % (0.0-0.4); Lymphocytes Absolute Auto 2.6 X10*3/uL (1.2-4.9); Lymphocytes Percent Auto 26.2 % (20-40); Mean Corpuscular HGB Conc 33.7 g/dl (31.0-36.0); Mean Corpuscular Hemoglobin 27.9 pg (27.0-33.0); Mean Corpuscular Volume 82.8 fL (80.0-98.0); Mean Platelet Volume 8.8 fL (9.4-12.4); Monocytes Percent Auto 9.7 % (2-11); Neutrophils Absolute Auto 5.2 x10*3/uL (2.0-8.3); Neutrophils Percent Auto 51.8 % (45-73); Platelet Count 242 X10*3/uL (160-400); Red Blood Count 5.06 X10*6/uL (4.60-5.80); Red Cell Distribution Width 15.6 % (11.0-16.0)
[2025-02-25 19:58] LABS: Appearance Urine Clear; Color Urine Yellow; Glucose Urine UA Negative (Negative); Leukocyte Esterase Urine Negative (Negative); Nitrite Urine Negative (Negative); PH 5.5 (5.0-9.0); Specific Gravity - Urine 1.025 (1.005-1.025); Urine Blood Negative (Negative); Urine Ketones Trace mg/dL (Negative); Urine Protein Negative (Neg-Trace)
[2025-02-25 20:00] LABS: Alanine Aminotransferase 24 U/L (0-40); Alkaline Phosphatase 98 U/L (39-117); Anion Gap 15 (12-20); Aspartate Amino Transferase 22 U/L (5-37); Bilirubin Total 0.5 mg/dL (0.0-1.0); Blood Urea Nitrogen 21 mg/dL (9-16); Calcium 9.4 mg/dL (8.4-10.2); Carbon Dioxide 22 mmol/L (22-29); Chloride 109 mmol/L (96-108); Estimated Glomerular Filt Rate > 60; Glucose Random 115 mg/dL (60-115); Lipase 44 U/L (8-78); Magnesium 1.7 mg/dL (1.6-2.6); Potassium 3.9 mmol/L (3.3-5.1); Sodium 142 mmol/L (135-145); Total Protein 6.6 g/dL (6.5-8.0)
[2025-02-25 20:09] LABS: Troponin-I High Sensitivity < 2.7 ng/L (<3.5-35.0)
[2025-02-25 20:14] LABS: B Type Natriuretic Peptide 12 pg/mL (<100)
[2025-02-25 20:32] LABS: Influenza A PCR NEGATIVE (Negative); Influenza B PCR NEGATIVE (Negative); Resp Syncy Virus RNA Qual PCR NEGATIVE (Negative); SARS COV2 PCR INHOUSE NEGATIVE (Negative)
--- OUTSIDE RECORDS SUMMARY | 2025-02-25 22:49 | XMS_ITS | Clinical Summary ---
Author Organization [employer] em Address [address] [place] [address] Care Team Providers Care Food Safety Director Name Role Phone ZabalaRichmondJonoRenetta womack Viet LUCAS Primary Care Provide r Allergies No known [...] (01/19/2021): Added automatically from request for surgery [id number] Confusion and disorientation 01/08/2021 Cerebral AVM 01/05/2021 Overdose of cocaine 11/15/2020 Cocaine overdose, undetermined intent, initial e ncounter 11/15/2020 Left sided numbness 08/16/2020 Anxiety 06/20/2020 Atherosclerosis of [place] co ronary artery of [place] heart without angina pectoris 01/25/2020 Facial numbness [...] drink = 0.6 oz pur e alcohol) [facility] Utilities Answer Date Recorded In the past [...] were you homeless or living in a retirement (including now)? No 05/18/2024 Sex and Gender [...] this topic Medical Devices Implanted Type Area Tool Tender Device Identifier Shelf Expiration Date Model / Serial / Lot Skin Meshed 2:1 - 154sq Cm - [id number] Implanted:Qty: 1 on 05/04/2021 by Shannon Theodore MD at [facility] Biological Tissue Right: [facility] 06/02/2024 1028-17 / [id number] / Stent Coronary Resolute Jaylen Rx 2.50 X 34mm [employer] - [id number] Implanted:Qty: 1 on 01/19/2020 by Sandy Medrano MD at [facility] Cardiac Stent N/A: Coronary [employer] [id number] 01/26/2021 [id number] 034UX / / [id number] Description:? ? Static magnetic field of 1.5 and 3 Poly only ? ? Maximum spatial gradient magnetic field of 3000 gauss/cm (30 T/m) or less ? ? Maximum MR system reported, whole body averaged specific absorption rate (RANDOLPH) of 2.0 W/kg (Normal Operating Mode) Https://www.accessdata.fda.gov/cdrh_docs/pdf16/[email or web address].pdf aa 07-20-20 Stent Coronary Resolute Jaylen 2.0 X 30mm Med[employer] - [id number] Implanted:Qty: 1 on 04/24/2020 by Sandy Medrano MD at [facility] Cardiac Stent Left: Coronary [employer] [id number] 11/15/2021 [id number] 030UX / / [id number] Description:? ? Static magnetic field of 1.5 and 3 Poly only ? ? Maximum spatial gradient magnetic field of 3000 gauss/cm (30 T/m) or less ? ? Maximum MR system reported, whole body averaged specific absorption rate (RANDOLPH) of 2.0 W/kg (Normal Operating Mode) Https://www.accessdata.fda.gov/cdr_docs/pdf16/[email or web address].pdf aa 07-20-20 Stent Drug Eluting Xience Skyp 3.00 Mm X 28 Mm - [id number] Implanted:Qty: 1 on 08/27/2022 by Roberto Almanza DO at [facility] Cardiac Stent Coronary [employer] [id number] 05/21/2024 [id number] - / / [id number] Angioseal Sts Plus 6f Closure [employer] - [id number] Implanted:Qty: 1 on 01/05/2021 by Otto Velázquez MD at [facility] Closure device Right: Arterial [employer] 09/25/2021 [id number] / / [id number] Device Vascular Closure Angio O Seal 6fr - [id number] Implanted:Qty: 1 on 01/29/2021 by Otto Velázquez MD at [facility] Closure device Left: Groin [employer] 09/25/2021 [id number] / / [id number] Angioseal Vip ??6f Closure [employer] - [id number] Implanted:Qty: 1 on 12/10/2021 by Otto Velázquez MD at [facility] Closure device Right: Groin [employer] 07/26/2022 [id number] / / [id number] Stent Ureteral 6x24 Ascerta [employer] - [id number] Implanted:Qty: 1 on 02/09/2018 by Srikanth Luciano MD at [facility] Implant Left: Ureter [employer] 09/18/2019 [id number] / / [id number] Stent Ureteral 6x24 Ascerta [employer] - [id number] Implanted:Qty: 1 on 02/09/2018 by Srikanth Luciano MD at [facility] Implant Right: Ureter [employer] 10/07/2019 [id number] 6130 / / [id number] Stent Ureteral Ascerta 4.8x24 [employer] - [id number] Implanted:Qty: 1 on 02/23/2018 by Srikanth Luciano MD at [facility] Implant Left: Ureter [employer] 12/08/2019 [id number] / / [id number] Kit Embolization Jaylen 34 [employer] Us - [id number] Implanted:Qty: 1 on 01/29/2021 by Otto Velázquez MD at [facility] Implant Right: Brain [employer] 08/30/2023 105-710 0-080 / / [id number] Description:rt MCA Kit Embolization Jaylen 18 [employer] - [id number] Implanted:Qty: 1 on 01/29/2021 by Otto Velázquez MD at [facility] Implant Right: Brain [employer] 11/02/2023 105-710 0-060 / / [id number] Description:rt MCA 0.4 ml Screw Bn Prox [employer] Impl - [id number] Implanted:Qty: 1 on 10/05/2021 by Hung Mixon MD at [facility] Implant Left: Shoulder [employer] 04/25/2026 AR-2290 / / [id number] Ulen Suture 4.64wck37.1mm Biocomposite Cls Arthrex - [id number] Implanted:Qty: 1 on 10/05/2021 by Hung Mixon MD at [facility] Implant Left: Shoulder [employer] 04/25/2023 AR-2324 BCCS / / [id number] Ulen Suture 4.75x19.1mm Swivelock Tigertape Blue [employer] - [id number] Implanted:Qty: 1 on 10/05/2021 by Hung Mixon MD at [facility] Implant Left: Shoulder ARTHREX 05/26/2025 AR-2324 BCCTT / / [id number] Ulen Suture 4.58eaq17.1mm Biocomposite Cls [employer] - [id number] Implanted:Qty: 1 on 10/05/2021 by Hung Mixon MD at [facility] Implant Left: Shoulder AR[employer]X 12/24/2024 AR-2324 BCC / / [id number] Ulen Suture 4.53vxz82.1mm Biocomposite Cls [employer]threx - [id number] Implanted:Qty: 1 on 10/05/2021 by Hung Mixon MD at [facility] Implant Left: Shoulder ARTHREX 12/24/2024 AR-2324 [facility] / / [id number] Procedures Procedure Name Priority Date/Time Associated [...] - 145 mmol/L 08/16/2024 7:26 PM EDT [facility] Potassium 4.2 3.5 - 5.1 mmol/L 08/16/2024 7:26 PM EDT [facility] Chloride 98 98 - 107 mmol/L 08/16/2024 7:26 PM EDT [facility] CO2 28 22 - 29 mmol/L 08/16/2024 7:26 PM EDT [facility] Glucose 161(H) 70 - 99 mg/dL 08/16/2024 7:26 PM EDT [facility] BUN 23 8 - 23 mg/dL 08/16/2024 7:26 PM EDT [facility] Creatinine, S 1.15 0.70 - 1.20 mg/dL 08/16/2024 7:26 PM EDT [facility] Protein, Total 6.6 6.4 - 8.3 g/dL 08/16/2024 7:26 PM EDT [facility] Albumin, S 4.1 3.5 - 5.2 g/dL 08/16/2024 7:26 PM EDT [facility] Calcium, Total 9.8 8.8 - 10.2 mg/dL 08/16/2024 7:26 PM EDT [facility] Birirubin, Total 0.3 0.0 - 1.2 mg/dL 08/16/2024 7:26 PM EDT [facility] Alkaline Phosphatase 95 40 - 129 IU/L 08/16/2024 7:26 PM EDT [facility] AST (SGOT) 9 0 - 40 IU/L 08/16/2024 7:26 PM EDT [facility] ALT (SGPT) 6 0 - 41 IU/L 08/16/2024 7:26 PM EDT [facility] Globulin 2.5 2.4 - 4.0 g/dL 08/16/2024 7:26 PM EDT [facility] Anion Gap 19 12 - 20 08/16/2024 7:26 PM EDT [facility] eGFR (No Race) 73 >59 ml/min/1.7 3 m2 08/16/2024 7:26 PM EDT [facility] Blood VENOUS BLOOD SPECIMEN / Unknown Venipuncture / Unknown 08/16/2024 6:27 PM EDT 08/16/2024 6:34 PM EDT us Hugo Engel MD BLOOD ORDERABLES Final Result [facility] [address] [phone] * (ABNORMAL) Hemoglobin A1c w/EAG calc.(Best Practice (08/11/2024 1:27 PM EDT) HBA1C 6.1(H) 4.8 - 5.6 % 08/11/2024 10:00 PM EDT [facility] Estimated Average Glucose 128(H) <115 mg/dL 08/11/2024 10:00 PM EDT [facility] Blood VENOUS BLOOD SPECIMEN / Unknown Venipuncture / Unknown 08/11/2024 1:27 PM EDT 08/11/2024 1:27 PM EDT Narrative [facility] - 08/11/2024 10:00 PM EDT Prediabetes 5.7% to 6.4% Diabetes ?>/=6.5% Per ADA recommendations Disease processes which shorten erythrocyte half life will decrease HbA1c values. ??Some hemoglobin variants may interfere with this method. ??Interpret result accordingly. us Lissette Garcia MD BLOOD ORDERABLES Fin al Result [facility] [address] [place] [address], [facility] [phone] * LIPID PANEL (08/11/2024 1:27 PM EDT) Cholesterol, Total 139 See Comment mg/dL 08/11/2024 10:10 PM EDT [facility] Comment: Interpretive Values: Desirable: ? <200 mg/dL Borderline High: 200-239 mg/dL High: ?>dk=504 mg/dL Triglycerides 140 See Comment mg/dL 08/11/2024 10:10 PM EDT [facility] Comment: Interpretive Values: Normal: ?<150 mg/dL Borderline High: 150-199 mg/dL High: ?200-499 mg/dL Very High: ? >jw=927 mg/dL HDL Cholesterol 40 See Comment mg/dL 08/11/2024 10:10 PM EDT [facility] Comment: Interpretive Values: Males: ?> or = 39 mg/dL Females: ??> or = 49 mg/dL LDL 71 See Comment mg/dL 08/11/2024 10:10 PM EDT [facility] Cholesterol/HDL Ratio 3.5 0.0 - 5.5 Ratio 08/11/2024 10:10 PM EDT [facility] Non-HDL Cholesterol 99 <130 mg/dL 08/11/2024 10:10 PM EDT [facility] Comment: Interpretive Values: Desirable: ? <130 mg/dL Above Desirable: 130-159 mg/dL Borderline High: 160-189 mg/dL High: ?190-219 mg/dL Very High: ? >ds=940 mg/dL Blood VENOUS BLOOD SPECIMEN / Unknown Venipuncture / Unknown 08/11/2024 1:27 PM EDT 08/11/2024 1:27 PM EDT Lissette Garcia MD BLOOD ORDERABLES Fin al Result Performing Organization Address City/State[facility] Co de Phone Number [facility] [address] [place] [address], [facility] [phone] * (ABNORMAL) MICROALBUMIN / CREATININE URINE RATIO (11/27/2018 10:09 AM EST) Creatinine, Random Urine 137.90(A ) REFERENCE RANGE NOT ESTABLISHED mg/dL 11/27/2018 10:09 AM EST [facility] MICROALBUMIN, UR <1.2(A) REFERENCE RANGE NOT ESTABLISHED mg/dL 11/27/2018 10:09 AM EST [facility] Microalb/Creat Ratio <30 ug/mg Creat 11/27/2018 10:09 AM EST [facility] Comment: The [place] Diabetes Association (ADA) (Diabetes Care26:S94-S98,2003) defines abnormalities [...] URINE ORDERABLES Final Result Performing Organization Address City/State/[facility] Co de Phone Number [facility] [address] [place] [address], [facility] [phone] from Last 3 Months or Most Recently Relevant to Health Maintenance Insurance WELLCARE /MDCR ADV HMO PPO WE[employer] /MDCR ADV HMO PPO WELL[employer] /MDCR ADV HMO PPO Advance Directives For more information, please contact: [phone] * Full Code (Latest Code Status on [...] Legally recognized decision maker: Patient/Self Care Teams Food Safety Director Relationship Specialty Start Date End Date Renetta Griggs, FOOD BROKER [address] [id number] PCP - General Nurse Practitioner 03/30/24 [facility] (p)[phone] (f)[phone] Durable Medical Equipment 10/24/16
--- OUTSIDE RECORDS SUMMARY | 2025-02-25 22:50 | XMS_ITS | Clinical Summary ---
Author Organization [facility] Address [address] [place] [address], [address] Care Team Providers Care Lien Searcher Name Role Phone Unavailable Primary Care Provider Unavailabl e Social History Tobacco Use Types Packs/Day Years Used Date Smoking Tobacco: Never Assessed Sex and Gender Information Value Date Recorded Sex Assigned at Not on file Gender Identity Not on file Sexual Orientation Not on file Plan of Treatment Not on file
--- OUTSIDE RECORDS SUMMARY | 2025-02-25 22:50 | XMS_ITS | CCD ---
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 Name Role Phone Alycia Weaver NP Primary Care Provider Unavailabl e Unavailable Chronic Care Management Unavaila ble Summary Purpose DataExchange Insurance Providers Payer name Policy type / Coverage type Covered republican ID Effective Begin Date Effective End Date MEDIC[place] [id number] Unknown Unknown NO COPAY HOLD [id number] Unknown Unknown Family History Family History data not found Problems Condition Codes Effective Dates Condition St at[facility] Other ICD-10: U00.00 ICD-9: U00.00 02/11/2025 Active Bipolar disorder ICD-10: F31.9 ICD-9: 296.80 [...] Fill Instructions quetiapine 300 mg tablet RxNorm: 557428 Take 1 Tablet(s) Oral every night at bedtime 08/25/20 24 Active benztropine 0.5 mg tablet RxNorm: 255290 Take 1 Tablet(s) Oral every day 08/25/20 Active buspirone 15 mg tablet RxNorm: 832370 Take 1 Tablet(s) Oral two times a day 08/25/20 24 Active trazodone 150 mg tablet RxNorm: 650365 Take 1 Tablet(s) Oral every night at bedtime 08/25/20 026 Active nitroglycerin 0.4 mg sublingual tablet RxNorm: 472395 Take 1 Tablet(s) Sublingual every 5 minutes as needed for chest pain. Do not exceed 3 doses in 15 minutes 04/02/20 24 024 Inactive albuterol sulfate HFA 90 mcg/actuation aerosol inhaler RxNorm: 6407678 Administer 2 Puff(s) Inhalation every 6 hours as needed 04/02/20 24 024 Inactive Toujeo Max U-300 SoloStar 300 unit/mL (3 mL) subcutaneous insulin pen RxNorm: 2730827 Administer 13 Unit(s) Subcutaneous two times a day 13 units in the morning and 13 units in the evening 04/02/20 No Stop Date Active Flonase Allergy Relief 50 mcg/actuation nasal spray,suspension RxNorm: 4989482 Belcher 2 Belcher Nasal every day 04/02/20 Inactive isosorbide mononitrate ER 30 mg tablet,extended release 24 hr RxNorm: 472026 Take 1 Tablet(s) Oral every morning 04/02/20 Active Ozempic 2 mg/dose (8 mg/3 mL) subcutaneous pen injector RxNorm: 2971012 Administer 2 Milligram(s) Subcutaneous once a week 04/02/20 No Stop Date Active duloxetine 30 mg capsule,delayed release RxNorm: 523598 Take 3 Capsule(s) Oral once daily 04/02/20 Active olanzapine 7.5 mg tablet RxNorm: 863031 Take 1 Tablet(s) Oral every night at bedtime 04/02/20 Active metformin 1,000 mg tablet RxNorm: 602236 Take 1 Tablet(s) Oral two times a day 04/02/20 025 Active allopurinol 100 mg tablet RxNorm: 330427 Take 1 Tablet(s) Oral 2 times a week 04/02/20 025 Active loratadine 10 mg tablet RxNorm: 661255 Take 1 Tablet(s) Oral every day 04/02/20 025 Active lisinopril 20 mg tablet RxNorm: 017286 Take 1 Tablet(s) Oral every day 04/02/20 025 Active buspirone 10 mg tablet RxNorm: 856445 Take 1 Tablet(s) Oral two times a day 04/02/20 024 Inactive lisinopril 20 mg tablet RxNorm: 289053 Take 1 Tablet(s) Oral every day 12/09/19 24 024 Inactive aspirin 81 mg tablet,delayed release RxNorm: 589080 Take 1 Tablet(s) Oral every day 06/10/20 023 Inactive ranolazine ER 500 mg tablet,extended release,12 hr RxNorm: 255192 Take 1 Tablet(s) Oral two times a day 06/10/20 No Stop Date Active furosemide 20 mg tablet RxNorm: 242933 Take 1 Tablet(s) Oral every day 06/10/20 No Stop Date Active hydrochlorothiazide 12.5 mg tablet RxNorm: 760561 Take 1 Tablet(s) Oral every day 06/10/20 No Stop Date Active pantoprazole 40 mg tablet,delayed release RxNorm: 420018 Take 1 Tablet(s) Oral every morning 06/10/20 No Stop Date Active divalproex 500 mg tablet,delayed release RxNorm: 3602663 Take 1 Tablet(s) Oral two times a day for mood 06/10/20 No Stop Date Active atorvastatin 40 mg tablet RxNorm: 522451 Take 1 Tablet(s) Oral every evening 06/10/20 023 Inactive gabapentin 600 mg tablet RxNorm: 713179 Take 1 Tablet(s) Oral two times a day 06/10/20 No Stop Date Active citalopram 20 mg tablet RxNorm: 990241 Take 1 Tablet(s) Oral every day 06/10/20 No Stop Date Active clopidogrel 75 mg tablet RxNorm: 886851 Take 1 Tablet(s) Oral every day 06/10/20 No Stop Date Active hydroxyzine HCl 25 mg tablet RxNorm: 385629 Take 1 Tablet(s) Oral two times a day as needed for anxiety 06/10/20 No Stop Date Active buspirone 15 mg tablet RxNorm: 172154 Take 1 Tablet(s) Oral two times a day for anxiety 06/10/20 024 Inactive Ozempic 1 mg/dose (4 mg/3 mL) subcutaneous pen injector RxNorm: 7666504 Inject 1 Milligram(s) Subcutaneous once a week 06/10/20 024 Inactive duloxetine 60 mg capsule,delayed release RxNorm: 866793 Take 1 Capsule(s) Oral every day 06/10/20 024 Inactive metformin 500 mg tablet RxNorm: 434603 Take 1 Tablet(s) Oral two times a day 06/10/20 023 Inactive quetiapine 400 mg tablet RxNorm: 738269 Take 1 Tablet(s) Oral every evening for sleep and pspychosis 06/10/20 024 Inactive lisinopril 10 mg tablet RxNorm: 760316 Take 1 Tablet(s) Oral every day 06/10/20 024 Inactive Toujeo SoloStar U-300 Insulin 300 unit/mL (1.5 mL) subcutaneous pen RxNorm: 7255990 Administer 60 Unit(s) Subcutaneous every morning and 30 Units every evening 06/10/20 024 Inactive allopurinol 100 mg tablet RxNorm: 380629 Take 1 Tablet(s) Oral every day 06/10/20 024 Inactive Toujeo Max U-300 SoloStar subcutaneous RxNorm: 3710752 subcutaneous 06/10/20 023 Inactive Medication Administered No Medication Administered data Results Observation Observation Code Item Item Code Result Date Service Location COMPLETE CBC W/ DIFF WBC 12116 WBC 6690-2 6.2 K/ul [facility] [address] [place] [address] 67457 COMPLETE CBC W/ DIFF WBC 60082 RBC 789-8 4.60 M/uL [facility] [address] [place] [address] 72281 COMPLETE CBC W/ DIFF WBC 18609 Hemoglobin 718-7 14.3 g/dL [facility] [address] [place] [address] 34620 COMPLETE CBC W/ DIFF WBC 48738 Hematocrit 4544-3 41.9 % [facility] [address] [place] [address] 54689 COMPLETE CBC W/ DIFF WBC 17137 MCV 787-2 91.0 fL [facility] [address] [place] [address] 79126 COMPLETE CBC W/ DIFF WBC 88257 MCH 785-6 31.0 pg [facility] [address] [place] [address] 47398 COMPLETE CBC W/ DIFF WBC 02722 MCHC 786-4 34.1 g/dL [facility] [address] [place] [address] 31592 COMPLETE CBC W/ DIFF WBC 24389 RDW 788-0 16.4 % [facility] [address] [place], [place] [address] COMPLETE CBC W/ DIFF WBC 64613 Platelet Count 777-3 357 K/uL 024 [facility] [address] [place] [address] COMPLETE CBC W/ DIFF WBC 85317 MPV 19412-7 6.7 fL 024 [facility] [address] [place] [address] COMPLETE CBC W/ DIFF WBC 48245 Neutrophils % 770-8 41.5 % 024 [facility] [address] [place] [address] COMPLETE CBC W/ DIFF WBC 33721 Lymphocytes % 736-9 38.6 % 024 [facility] [address] [place] [address] COMPLETE CBC W/ DIFF WBC 83479 Monocytes % 5905-5 10.4 % 024 [facility] [address] [place] [address] 96716 COMPLETE CBC W/ DIFF WBC 58182 Eosinophils % 713-8 8.6 % 024 [facility] [address] [place] [address] 43245 COMPLETE CBC W/ DIFF WBC 26375 Basophils% 706-2 0.9 % 024 [facility] [address] [place] [address] 20597 COMPLETE CBC W/ DIFF WBC 94851 Absolute Neutrophil 751-8 2573 /ul 024 [facility] [address] [place] [address] 62339 COMPLETE CBC W/ DIFF WBC 77932 Absolute Lymphocyte 47993-4 2393 /ul 024 [facility] [address] [place] [address] 85766 COMPLETE CBC W/ DIFF WBC 00362 Absolute Monocyte 742-7 645 /ul 024 [facility] [address] [place] [address] 50114 COMPLETE CBC W/ DIFF WBC 99521 Absolute Eosinophil 711-2 533 /ul 024 [facility] [address] [place] [address] 14623 COMPLETE CBC W/ DIFF WBC 75194 Absolute Basophil 704-7 56 /ul 024 [facility] [address] [place] [address] 16228 [id number] IN 4548-4 Glyco HGB A1C 51962-5 6.1 % 024 [facility] [address] [place] [address] 55853 [id number] IN 4548-4 eAG 10658-4 128 mg/dL [facility] [address] [place] [address] CHEM 14 (METABOLIC PANEL) 46352 Glucose 2345-7 99 mg/dL [facility] [address] [place] [address] CHEM 14 (METABOLIC PANEL) 87097 BUN 3094-0 9 mg/dL [facility] [address] [place] [address] CHEM 14 (METABOLIC PANEL) 91207 Creatinine 2160-0 0.9 mg/dL [facility] [address] [place] [address] CHEM 14 (METABOLIC PANEL) 36574 BUN/Creat Ratio 3097-3 9.5 [facility] [address] [place] [address] CHEM 14 (METABOLIC PANEL) 72850 GFR Estimated 27646-7 92 mL/min/1.73 m2 [facility] [address] [place] [address] CHEM 14 (METABOLIC PANEL) 31083 Sodium 2951-2 142 mmol/L [facility] [address] [place] [address] CHEM 14 (METABOLIC PANEL) 84887 Potassium 2823-3 4.5 mmol/L [facility] [address] [place] [address] CHEM 14 (METABOLIC PANEL) 03687 Chloride 2075-0 111 mmol/L [facility] [address] [place] [address] 80840 CHEM 14 (METABOLIC PANEL) 43710 Total CO2 2028-9 24 mmol/L [facility] [address] [place] [address] CHEM 14 (METABOLIC PANEL) 43265 Calculated Serum Osmolality 04866-0 293 mOsm/kg [facility] [address] [place] [address] CHEM 14 (METABOLIC PANEL) 21136 Anion Gap 1863-0 11.5 mEq/L [facility] [address] [place] [address] CHEM 14 (METABOLIC PANEL) 23472 Albumin 07610-7 4.0 g/dL [facility] [address] [place] [address] CHEM 14 (METABOLIC PANEL) 21417 Total Protein 2885-2 7.0 g/dL 024 [facility] [address] [place] [address] CHEM 14 (METABOLIC PANEL) 38555 Globulin 2336-6 3.0 g/dL 024 [facility] [address] [place] [address] CHEM 14 (METABOLIC PANEL) 99972 Albumin/Globulin Ratio 1759-0 1.3 024 [facility] [address] [place] [address] CHEM 14 (METABOLIC PANEL) 90302 ALK PHOS 6768-6 84.00 U/L 024 [facility] [address] [place] [address] CHEM 14 (METABOLIC PANEL) 28725 SGOT/AST 1920-8 23 U/L 024 [facility] [address] [place] [address] CHEM 14 (METABOLIC PANEL) 98659 SGPT/ALT 1743-4 26 U/L 024 [facility] [address] [place] [address] CHEM 14 (METABOLIC PANEL) 64892 Total Bilirubin 1975-2 0.6 mg/dL 024 [facility] [address] [place] [address] CHEM 14 (METABOLIC PANEL) 85369 Calcium 29803-0 9.7 mg/dL 024 [facility] [address] [place] [address] CHEM 14 (METABOLIC PANEL) 23476 Corrected Calcium 28619-4 9.9 mg/dL 024 [facility] [address] [place] [address] 85502 Hemoccult Screening Immunoassay G0328 Fecal Occult Blood Test (FOBT) Screening 47010-1 NO SPECIMEN RECEIVED 024 [facility] [address] [place] [address] 59550 [id number] IN 4548-4 Glyco HGB A1C 60373-3 7.4 % 024 [facility] [address] [place] [address] [id number] IN 4548-4 eAG 87710-3 166 mg/dL 024 [facility] [address] [place] [address] MICROALBUMIN (URINE) 01135 Microalbumin 80214-5 1.7 mg/dL 024 [facility] [address] [place] [address] MICROALBUMIN (URINE) 72578 Microalbumin/Cre atinine Ratio 05957-4 6 MCG/MGCREAT 024 [facility] [address] [place] [address] MICROALBUMIN (URINE) 83864 Urine Creatinine 2161-8 275.00 mg/dL 024 [facility] [address] [place] [address] CHEM 14 (METABOLIC PANEL) 48260 Glucose 2345-7 112 mg/dL [facility] [address] [place] [address] CHEM 14 (METABOLIC PANEL) 49399 BUN 3094-0 23 mg/dL [facility] [address] [place] [address] CHEM 14 (METABOLIC PANEL) 88217 Creatinine 2160-0 1.5 mg/dL [facility] [address] [place] [address] 84729 CHEM 14 (METABOLIC PANEL) 82252 BUN/Creat Ratio 3097-3 15.6 [facility] [address] [place] [address] 32827 CHEM 14 (METABOLIC PANEL) 52304 GFR Estimated 07429-1 54 mL/min/1.73 m2 024 [facility] [address] [place] [address] 41938 CHEM 14 (METABOLIC PANEL) 76561 Sodium 2951-2 138 mmol/L 024 [facility] [address] [place] [address] 54377 CHEM 14 (METABOLIC PANEL) 11595 Potassium 2823-3 4.8 mmol/L 024 [facility] [address] [place] [address] CHEM 14 (METABOLIC PANEL) 08545 Chloride 2075-0 99 mmol/L 024 [facility] [address] [place] [address] 40437 CHEM 14 (METABOLIC PANEL) 93058 Total CO2 2028-9 26 mmol/L [facility] [address] [place] [address] 26414 CHEM 14 (METABOLIC PANEL) 53251 Calculated Serum Osmolality 41537-6 290 mOsm/kg 024 [facility] [address] [place] [address] 99262 CHEM 14 (METABOLIC PANEL) 50919 Anion Gap 1863-0 17.8 mEq/L 024 [facility] [address] [place] [address] 29752 CHEM 14 (METABOLIC PANEL) 43404 Albumin 70341-0 4.3 g/dL 024 [facility] [address] [place] [address] 09338 CHEM 14 (METABOLIC PANEL) 11487 Total Protein 2885-2 6.8 g/dL 024 [facility] [address] [place] [address] 72644 CHEM 14 (METABOLIC PANEL) 90956 Globulin 2336-6 2.5 g/dL 024 [facility] [address] [place] [address] 26749 CHEM 14 (METABOLIC PANEL) 38675 Albumin/Globulin Ratio 1759-0 1.7 024 [facility] [address] [place] [address] 14760 CHEM 14 (METABOLIC PANEL) 97917 ALK PHOS 6768-6 58.00 U/L 024 [facility] [address] [place] [address] 80267 CHEM 14 (METABOLIC PANEL) 11111 SGOT/AST 1920-8 19 U/L 024 [facility] [address] [place] [address] 97086 CHEM 14 (METABOLIC PANEL) 47890 SGPT/ALT 1743-4 19 U/L 024 [facility] [address] [place] [address] 30519 CHEM 14 (METABOLIC PANEL) 24265 Total Bilirubin 1975-2 0.6 mg/dL 024 [facility] [address] [place] [address] 81938 CHEM 14 (METABOLIC PANEL) 33028 Calcium 98396-4 9.9 mg/dL 024 [facility] [address] [place] [address] 75164 CHEM 14 (METABOLIC PANEL) 44151 Corrected Calcium 02477-0 9.8 mg/dL 024 [facility] [address] [place] [address] 80192 [id number] IN 4548-4 Glyco HGB A1C 35325-0 NO SPECIMEN RECEIVED % 024 [facility] [address] [place] [address] 29368 [id number] IN 4548-4 eAG 70516-6 NO SPECIMEN RECEIVED mg/dL 024 [facility] [address] [place] [address] 18969 CBC 21814 WBC 6690-2 NO SPECIMEN RECEIVED K/ul 024 [facility] [address] [place] [address] 97655 CBC 88478 RBC 789-8 NO SPECIMEN RECEIVED M/uL 024 [facility] [address] [place] [address] CBC 00230 Hemoglobin 718-7 NO SPECIMEN RECEIVED g/dL 024 [facility] [address] [place] [address] CBC 59745 Hematocrit 4544-3 NO SPECIMEN RECEIVED % 024 [facility] [address] [place] [address] CBC 00943 MCV 787-2 NO SPECIMEN RECEIVED fL 024 [facility] [address] [place] [address] CBC 85319 MCH 785-6 NO SPECIMEN RECEIVED pg 024 [facility] [address] [place] [address] 33116 CBC 72346 MCHC 786-4 NO SPECIMEN RECEIVED g/dL 024 [facility] [address] [place] [address] 76977 CBC 40805 RDW 788-0 NO SPECIMEN RECEIVED % 024 [facility] [address] [place] [address] 48643 CBC 19409 Platelet Count 777-3 NO SPECIME N RECEIVED K/uL 024 [facility] [address] [place] [address] 45858 CBC 22531 MPV 49440-1 NO SPECIMEN RECEIVED fL 024 [facility] [address] [place] [address] 29633 CHEM 14 (METABOLIC PANEL) 07111 Glucose 2345-7 NO SPECIMEN RECEIVED mg/dL 024 [facility] [address] [place] [address] 02318 CHEM 14 (METABOLIC PANEL) 68964 BUN 3094-0 NO SPECIMEN RECEIVED mg/dL 024 [facility] [address] [place] [address] 46675 CHEM 14 (METABOLIC PANEL) 01021 Creatinine 2160-0 NO SPECIMEN RECEIVED mg/dL 12/29/ 024 [facility] [address] [place] [address] 15219 CHEM 14 (METABOLIC PANEL) 67860 BUN/Creat Ratio 3097-3 NO SPECIMEN RECEIVED 024 [facility] [address] [place] [address] 26435 CHEM 14 (METABOLIC PANEL) 51605 GFR Estimated 06878-8 NO SPECIMEN RECEIVED mL/min/1.73 m2 024 [facility] [address] [place] [address] CHEM 14 (METABOLIC PANEL) 21989 Sodium 2951-2 NO SPECIMEN RECEIVED mmol/L 03// 024 [facility] [address] [place] [address] 55374 CHEM 14 (METABOLIC PANEL) 17270 Potassium 2823-3 NO SPECIMEN RECEIVED mmol/L 12/29/ 024 [facility] [address] [place] [address] CHEM 14 (METABOLIC PANEL) 61505 Chloride 2075-0 NO SPECIMEN RECEIVED mmol/L // 024 [facility] [address] [place] [address] 69658 CHEM 14 (METABOLIC PANEL) 86601 Total CO2 2028-9 NO SPECIMEN RECEIVED mmol/L // 024 [facility] [address] [place] [address] 93488 CHEM 14 (METABOLIC PANEL) 81027 Anion Gap 1863-0 NO SPECIMEN RECEIVED mEq/L 12/29/ 024 [facility] [address] [place] [address] 05892 CHEM 14 (METABOLIC PANEL) 57841 Calculated Serum Osmolality 82602-4 NO SPECIMEN RECEIVED mOsm/kg 12/29/ 024 [facility] [address] [place] [address] 62738 CHEM 14 (METABOLIC PANEL) 08744 Albumin 46211-1 NO SPECIMEN RECEIVED g/dL 03// 024 [facility] [address] [place] [address] 03734 CHEM 14 (METABOLIC PANEL) 96621 Total Protein 2885-2 NO SPECIMEN RECEIVED g/dL 12/29/ 024 [facility] [address] [place] [address] 28847 CHEM 14 (METABOLIC PANEL) 00109 Globulin 2336-6 NO SPECIMEN RECEIVED g/dL // 024 [facility] [address] [place] [address] 77525 CHEM 14 (METABOLIC PANEL) 30473 Albumin/Globulin Ratio 1759-0 NO SPECIMEN RECEIVED 12/29/ 024 [facility] [address] [place] [address] 47992 CHEM 14 (METABOLIC PANEL) 64164 ALK PHOS 6768-6 NO SPECIMEN RECEIVED U/L // 024 [facility] [address] [place] [address] 48051 CHEM 14 (METABOLIC PANEL) 69760 SGOT/AST 1920-8 NO SPECIMEN RECEIVED U/L // 024 [facility] [address] [place] [address] 82997 CHEM 14 (METABOLIC PANEL) 46307 SGPT/ALT 1743-4 NO SPECIMEN RECEIVED U/L // 024 [facility] [address] [place] [address] 95917 CHEM 14 (METABOLIC PANEL) 06225 Total Bilirubin 1975-2 NO SPECIMEN RECEIVED mg/dL 024 [facility] [address] [place] [address] 25994 CHEM 14 (METABOLIC PANEL) 69319 Calcium 09144-2 NO SPECIMEN RECEIVED mg/dL 024 [facility] [address] [place] [address] 64231 CHEM 14 (METABOLIC PANEL) 19191 Corrected Calcium 66160-3 NO SPECIMEN RECEIVED mg/dL 024 [facility] [address] [place] [address] 88421 CHEM 14 (METABOLIC PANEL) 77949 Glucose 2345-7 173 mg/dL 023 [facility] [address] [place] [address] 63819 CHEM 14 (METABOLIC PANEL) 00922 BUN 3094-0 17 mg/dL 023 [facility] [address] [place] [address] 99082 CHEM 14 (METABOLIC PANEL) 62649 Creatinine 2160-0 1.1 mg/dL 023 [facility] [address] [place] [address] 11202 CHEM 14 (METABOLIC PANEL) 30868 BUN/Creat Ratio 3097-3 16.0 023 [facility] [address] [place] [address] 90983 CHEM 14 (METABOLIC PANEL) 59911 GFR Estimated 82464-7 81 mL/min/1.73 m2 023 [facility] [address] [place] [address] 77922 CHEM 14 (METABOLIC PANEL) 49354 Sodium 2951-2 143 mmol/L 023 [facility] [address] [place] [address] 46517 CHEM 14 (METABOLIC PANEL) 85825 Potassium 2823-3 4.4 mmol/L 023 [facility] [address] [place] [address] 65998 CHEM 14 (METABOLIC PANEL) 34754 Chloride 2075-0 109 mmol/L 023 [facility] [address] [place] [address] 71847 CHEM 14 (METABOLIC PANEL) 41289 Total CO2 2028-9 26 mmol/L 023 [facility] [address] [place] [address] 08786 CHEM 14 (METABOLIC PANEL) 47327 Anion Gap 1863-0 12.4 mEq/L 023 [facility] [address] [place] [address] 12321 CHEM 14 (METABOLIC PANEL) 00297 Calculated Serum Osmolality 74981-2 302 mOsm/kg 023 [facility] [address] [place] [address] CHEM 14 (METABOLIC PANEL) 42417 Albumin 88620-9 3.7 g/dL 023 [facility] [address] [place] [address] CHEM 14 (METABOLIC PANEL) 10101 Total Protein 2885-2 6.6 g/dL 023 [facility] [address] [place] [address] CHEM 14 (METABOLIC PANEL) 19002 Globulin 2336-6 2.9 g/dL 023 [facility] [address] [place] [address] CHEM 14 (METABOLIC PANEL) 37567 Albumin/Globulin Ratio 1759-0 1.3 023 [facility] [address] [place] [address] CHEM 14 (METABOLIC PANEL) 52785 ALK PHOS 6768-6 112.00 U/L 023 [facility] [address] [place] [address] 67163 CHEM 14 (METABOLIC PANEL) 83566 SGOT/AST 1920-8 33 U/L 023 [facility] [address] [place] [address] 82041 CHEM 14 (METABOLIC PANEL) 33195 SGPT/ALT 1743-4 37 U/L 023 [facility] [address] [place] [address] CHEM 14 (METABOLIC PANEL) 10829 Total Bilirubin 1975-2 0.5 mg/dL 023 [facility] [address] [place] [address] 57847 CHEM 14 (METABOLIC PANEL) 89447 Calcium 55665-7 9.3 mg/dL 023 [facility] [address] [place] [address] CHEM 14 (METABOLIC PANEL) 56058 Corrected Calcium 70406-3 9.7 mg/dL 023 [facility] [address] [place] [address] TSH 39139 TSH 99164-8 2.240 uIU/mL 023 [facility] [address] [place] [address] TRIGLYCERIDES 02961 Triglycerides 2571-8 206 mg/dL 023 [facility] [address] [place] [address] TRIGLYCERIDES 47417 VLDL 78043-5 41 mg/dL 023 [facility] [address] [place] [address] [id number] IN [facility]84 Glyco HGB A1C 20469-7 9.5 % 023 [facility] [address] [place] [address] [id number] IN [facility]4 eAG 97769-5 226 mg/dL 023 [facility] [address] [place] [address] HDL - CHOL 20599 HDL 2085-9 44 mg/dL 023 [facility] [address] [place] [address] HDL - CHOL 41388 CHD 50396-2 29 % 023 [facility] [address] [place] [address] DIRECT LDL - CHOL 87373 LDL-Direct 80728-8 83 mg/dL 0 023 [facility] [address] [place] [address] CHOLESTEROL 72598 Cholesterol 2093-3 154 mg/dL 023 [facility] [address] [place] [address] COMPLETE CBC W/ DIFF WBC 65678 WBC 6690-2 5.6 K/ul 023 [facility] [address] [place] [address] COMPLETE CBC W/ DIFF WBC 07232 RBC 789-8 5.33 M/uL 023 [facility] [address] [place] [address] COMPLETE CBC W/ DIFF WBC 21544 Hemoglobin 718-7 14.8 g/dL 023 [facility] [address] [place] [address] COMPLETE CBC W/ DIFF WBC 23352 Hematocrit 4544-3 46.2 % 023 [facility] [address] [place] [address] COMPLETE CBC W/ DIFF WBC 56316 MCV 787-2 86.8 fL 023 [facility] [address] [place] [address] COMPLETE CBC W/ DIFF WBC 67849 MCH 785-6 27.8 pg 023 [facility] [address] [place] [address] COMPLETE CBC W/ DIFF WBC 95827 MCHC 786-4 32.1 g/dL 023 [facility] [address] [place] [address] COMPLETE CBC W/ DIFF WBC 18332 RDW 788-0 17.4 % 023 [facility] [address] [place] [address] COMPLETE CBC W/ DIFF WBC 46763 Platelet Count 777-3 248 K/uL 023 [facility] [address] [place] [address] COMPLETE CBC W/ DIFF WBC 36398 MPV 57760-0 7.2 fL 023 [facility] [address] [place] [address] COMPLETE CBC W/ DIFF WBC 81695 Neutrophils % 770-8 48.7 % 023 [facility] [address] [place] [address] COMPLETE CBC W/ DIFF WBC 65651 Lymphocytes % 736-9 32.9 % 023 [facility] [address] [place] [address] COMPLETE CBC W/ DIFF WBC 56765 Monocytes % 5905-5 12.2 % 023 [facility] [address] [place] [address] 43471 COMPLETE CBC W/ DIFF WBC 78789 Eosinophils % 713-8 5.2 % 023 [facility] [address] [place] [address] 90255 COMPLETE CBC W/ DIFF WBC 47098 Basophils% 706-2 1.0 % 023 [facility] [address] [place] [address] 16880 COMPLETE CBC W/ DIFF WBC 63829 Absolute Neutrophil 751-8 2727 /ul 023 [facility] [address] [place] [address] 79527 COMPLETE CBC W/ DIFF WBC 24400 Absolute Lymphocyte 04810-7 1842 /ul 023 [facility] [address] [place] [address] 84918 COMPLETE CBC W/ DIFF WBC 50755 Absolute Monocyte 742-7 683 /ul 023 [facility] [address] [place] [address] 93350 COMPLETE CBC W/ DIFF WBC 32101 Absolute Eosinophil 711-2 291 /ul 023 [facility] [address] [place] [address] 81643 COMPLETE CBC W/ DIFF WBC 43365 Absolute Basophil 704-7 56 /ul 023 [facility] [address] [place] [address] 49609 Procedures Procedure Codes Date Most recent A1c = 7.0% and < 8.0% CPT-4: 3051F 08/25/2024 MED LIST DOCD IN [facility] CPT-4: 1159F 08/25/2024 [facility] MEDS BY RX/DR IN [facility] CPT-4: 1160F 2023 Discharge Meds Reconciled w/ Current Med list CP T-4: 1111F 08/25/2024 Amnt pain noted; none prsnt CPT-4: 1126F 07/29 Screening for clinical depre ssion is positive and follow up plan documented CPT-4: G8431 06/17/2024 MED LIST DOCD IN [facility] CPT-4: 1159F 06/17/2024 [facility] MEDS BY RX/DR IN [facility] CPT-4: 1160F 2023 Discharge Meds Reconciled w/ [...] CPT-4: 1125F 04/2024 MED LIST DOCD IN [facility] CPT-4: 1159F 04/02/2024 [facility] MEDS BY RX/DR IN [facility] CPT-4: 1160F 2023 Colorectal Screening Screening for Colorectal Cancer/Screened:/*Yes colonoscopy was performed:/Negative: DOS: CPT-4: CRSUnknown 023 [id number]-Uwymcsdoftabjcc CPT-4: 69981 Unknown J4A-Xcsyffzjtasualu CPT-4: 41879 Unknown K7Z-Euzyogoetaknijg CPT-4: 67092 Unknown [id number]-[id number] CPT-4: 53493 Unknown Fecal Occult Blood Test (FOBT) Screening CPT-4: G0328 Unknown Vital Signs Date Vital 08/25/2024 Blood Pressure 1: 134/60 Code: 8480-6 Heart Rate 1: 87 bpm Respiratory Rate: 17 bpm SpO2: 97% Temperature: 36.2 (C) / 97.2 (F) Weight: 184 lbs Code: 33008-7 06/17/2024 Blood Pressure 1: 100/70 Code: 8480-6 BMI: 34.8 Code: 64740-0 Heart Rate 1: 87 bpm Height: 5'1 Code: 8302-2 Respiratory Rate: 18 bpm SpO2: 97% Temperature: 35.9 (C) / 96.7 (F) Weight: 184 lbs 3 oz Code: 78264-9 04/02/2024 Blood Pressure 1: 115/70 Code: 8480-6 Blood Pressure 2: 115/70 Code: 8480-6 BMI: 36.5 Code: 34360-2 Heart Rate 1: 82 bpm Height: 5'1 Code: 8302-2 Respiratory Rate: 18 bpm SpO2: 97% Temperature: 36.4 (C) / 97.5 (F) Weight: 193 lbs 2 oz Code: 92171-3 12/09/2023 Blood Pressure 1: 152/84 Code: 8480-6 Blood Pressure 1: 138/80 Code: 8480-6 BMI: 38.4 Code: 25278-7 Heart Rate 1: 79 bpm Height: 5'1 Code: 8302-2 Respiratory Rate: 16 bpm SpO2: 97% Temperature: 36.3 (C) / 97.4 (F) Weight: 203 lbs Code: 17316-3 06/10/2023 Blood Pressure 1: 120/78 Code: 8480-6 Blood Pressure 2: 119/80 Code: 8480-6 Heart Rate 1: 82 bpm Respiratory Rate: 16 bpm SpO2: 97% Temperature: 36.7 (C) / 98.0 (F) Weight: 219 lbs 14 oz Code: 72152-3 Reason For Visit Reason For Visit Effective [...] Performer Location Location Address Codes Artie e ([id number]) Home or Residence Visit Est Pt - Moderate Level, 40 mins Diagnosis: HTN (hypertension)[I CD10: I10] Diagnosis: CAD (coronary artery disease)[ICD10: I25.10] Diagnosis: Bipolar disorder[ICD10: F31.9] Diagnosis: DM2 (diabetes mellitus, type 2)[ICD10: E11.9] Diagnosis: Seizure disorder[ICD10: G40.909] Hugo Rich [facility] [address] [place] [address] CPT-4: 01378 08/25/2024 ([id number]) Home or Residence Visit Est Pt - [...] R53.81] Diagnosis: Other fatigue[ICD10: R53.83] Karen Calero [facility] [address] [place] [address] CPT-4: 38971 06/17/2024 ([id number]) Home or Residence Visit Est Pt - [...] Diagnosis: Colon cancer screening[ICD10: Z12.11] Karen Calero [facility] [address] [id number] CPT-4: 14537 04/02/2024 ([id number]) Home or Residence Visit Est Pt - [...] E66.01] Diagnosis: 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] Marivel Lloyd [facility] [address] [place], [place] [id number] CPT-4: 16110 12/09/2023 ([id number]) Home or Residence Visit PEDIATRIC PHYSICAL THERAPIST - Moderate Level, 60 mins Diagnosis: Gout[ICD10: M10.9] Diagnosis: DM2 (diabetes mellitus, type 2)[ICD10: E11.9] Diagnosis: CAD (coronary artery disease)[ICD10: I25.10] Diagnosis: H/O heart artery stent[ICD10: Z95.5] Diagnosis: Bipolar disorder[ICD10: F31.9] Diagnosis: HTN (hypertension)[I CD10: I10] Diagnosis: Neuropathy[ICD10 : G62.9] Diagnosis: Leg edema[ICD10: R60.0] Diagnosis: HLD (hyperlipidemia) [ICD10: E78.5] Marivel Lloyd [facility] [address] [place] [address] CPT-4: 14608 06/10/2023 Plan of Care Planned Activity Notes Codes Status Date Patient Education: Patient Medication Summary Completed 02/11/2025 Patient Education: Patient Medication Summary Completed 08/27/2024 Visit Plan: I10-401.9 HTN (hyper tension) (good control--no medication changes) I25.10-414.00 CAD (coronary artery disease) (followed by cardiology) F31.9-296.80 Bipolar disorder (followed by [facility]) E11.9-250.00 DM2 (diabetes mellitus, type 2) (labs drawn today) 08/25/2024 Appointment: Hugo Rich WPtel: [address] [place] [address] E180 08/25/2024 Patient Education: Patient Medication Summary [...] Leg edema 06/17/2024 Appointment: Karen Calero WPtel: [address] [place] [address] E180 06/17/2024 Patient Education: Patient Medication Summary [...] supportive therapy. 04/02/2024 Appointment: Karen Calero WPtel: [address] [place], [place] [phone] E180 04/02/2024 Patient Education: Obesity Completed 04/02/2024 Patient Education: Heart Disease Completed 04/02/2024 Patient Education: Patient Medication Summary Completed 04/02/2024 Patient Education: Hypertension Completed 04/02/2024 Patient Education: Diabetes Complete d 04/02/2024 Care Plan: External Laboratory Tests Ordered 04/02/2024 Visit Plan: he will see mikaela gerard pcp this month 12/09/2023 Appointment: Marivel Lloyd WPtel: [address] [place], [place] [phone] [place] E180 12/09/2023 Patient Education: Patient Medication Summary Completed 12/09/2023 Patient Education: Obesity Completed 12/09/2023 Patient Education: lisinopril- [employer] Coupon [id number] [email or web address] Completed 12/09/2023 Patient Education: Diabetes Complete d 12/09/2023 Patient Education: Hypertension Completed 12/09/2023 Appointment: Marivel Lloyd WPtel: [address] [place] [address] E180 09/24/2023 Appointment: Marivel Lloyd WPtel: [address] [place] [address] N180 06/10/2023 Patient Education: Anxiety Completed 06/10/2023 Patient Education: Hypertension Completed 06/10/2023 Patient Education: Patient Medication Summary Completed 06/10/2023 Patient Education: Heart Disease Completed 06/10/2023 Appointment: Marivel Lloyd WPtel: [address] [place] [address] N180 05/15/2023 Referral: Housing Coordination Referral Initiated Referral: Pending Medical Records Information faxed MR request Order Faxed Referral: Pending Medical Records Information FAXED [facility] [phone] Order Faxed Instructions Comment Date . I10-401.9 HTN (hypertensio n) (good control--no medication changes) I25.10-414.00 CAD (coronary artery disease) (followed by cardiology) F31.9-296.80 Bipolar disorder (followed by [facility]) E11.9-250.00 DM2 (diabetes mellitus, type 2) (labs drawn today) 08/25/2024 ?? Keep all scheduled appts with providers and f/u as needed. 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 Notify provider for any issues via [email or web address] 24 hour line. [phone]. Z91.81-V15.88 At high risk for falls F31.9-296.80 [...] ?? Notify provider for any issues via [email or web address] 24 hour line. [phone]. F31.9-296.80 Bipolar disorder--- ---cont buspirone, citalopram, duloxetine, [...] nervous system--- ---keep scheduled appt with neurology. R51-797 Frailty---- ---cont supportive therapy. 04/02/2024 . 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
--- OUTSIDE RECORDS SUMMARY | 2025-02-25 22:50 | XMS_ITS | Data Portability ---
Author Organization [employer], Kate segundo Office Address [address] [place] [address] Care Team Providers Care Stem Maker Name Role Phone RENETTA GRIGGS Primary Care Provider CHAD CHURCH OTHER LIZETTE ARMSTRONG OTHER ANDRA RUIZ Life Enrichment Manager EMILEE MATA Internal Medicine ARMIDA RANDOLPH Nurse Monitoring Assessment Encounter Date Assessment Date Assessment LastModified by Organization Details LastModified Time 03/23/2024 03/23/2024 25 min 15 min health promotion with DM, HTN and prevention of worsening s/s with dizziness, syncope by discussion of need to comply with diet and exercise. [email or web address] Not available 03/28/2024 12:34:49 04/26/2024 04/26/2024 25 [...] diet and need to comply with exercise. [facility] Not available 07/01/2024 14:03:13 06/23/2024 06/23/2024 25 min 15 min health promotion with DM, HTN and prevention of worsening s/s with discussion of diet and need to comply with exercise. [facility] Not available 07/01/2024 14:31:36 Plan of Treatment Reminders Order Date Submit Date Provider Last Modified By Organization Details Last Modified Time Details Appointments None record ed. Lab glucos e, finger stick, blood 2023 024 [facility], [address] [place] [address], [address], 4 15:46:30 glucos e, finger stick, blood 2023 024 [facility], [address] [place] [address], [address], 4 15:30:04 glucos e, finger stick, blood 2023 024 [facility], [address] [place] [address], [address], 4 20:51:21 glucos e, finger stick, blood 2023 024 [facility], [address] [place] [address], [address], 4 16:10:09 vitami n D, 25-hyd rodrigue, total, serum 2023 024 [facility], [address] [place] [address] , [address], [place], [address], 4 09:09:50 CMP, serum or plasma 2023 024 [facility] [address] , [address], [place], [address], 4 14:16:18 CBC w/ auto diff 2023 024 [facility], [address], [address], [place], [address], 4 14:16:18 urinal ysis, dipsti ck 2023 024 [facility] Main Office, [address] [place] [address], [address], 4 04:25:54 glucos e, finger stick, blood 2023 024 [facility], [address] [place] [address], [address], 4 16:19:19 Referral home health referr al [...] assist ance and aid servic es.Arturo segundo, CASH APPLICATIONS COORDINATOR-BC /Dr. Huber , [facility] ([facility]) 2023 024 [email or web address] Summer, [address], [address], [place], [address], 4 14:53:59 neurol ogist referr al 2023 024 [email or web address] Damion Ibarra ([facility]), [address], [place], [address], 4 10:43:04 diabet ic ophtha lmolog y referr al - Please contac t patien t for evalua tion of DM retina screen ing. Englis h second langua ge Thank KAT Beatty-BC /Markus Lowery [facility] 2023 024 [id number] Sandoval Payne MD, [address] [facility], [facility] [address], [place], [address], 12:56:22 diabet ic nutrit ion educat ion referr al - Please contac t patien t for nutrit ional educat ion. Patien t only eat 1 meal daily with freque nt syncop e. Patien t trigly ceride level 409 mg/Aguila ethan KAT Beatty-VIC /[facility] [email or web address] [facility], [facility], [facility] 2nd Level, [place], [address], Ph [phone] 4 10:43:06 Procedures None record ed. Surgeries None record ed. Imaging None record ed. Medication Orders Mirala x 17 gram/d ose oral powder 2023 024 [facility], [address], [place], [address], 4 14:31:56 Fleet Minera l Oil enema 2023 024 [facility] [address], [address], [place], [address], 4 14:31:54 docusa te sodium 100 mg capsul e 2023 024 [facility] [address], [address] [place], [address], 4 14:31:58 Vitami n D3 125 mcg (5,000 unit) tablet 2023 024 [facility] [address], [address], [place], [address], 4 04:30:05 ezetim kate 10 mg tablet 2023 024 [facility] [address], [address], [place], [address], 4 13:15:44 Patient Targets Encounter Date Encounter [...] available Not available Not available ASCVD Risk [id number] risk of atherosclerotic cardiovascular disease: 17.7%10-year risk [...] Not available Not parish ilable Not available halfway goal o f Blood Pressure Not available Not available Not available 6 months of Weight Not available Not available Not available halfway goal o f HDL Not available Not available Not available halfway goal o f Cholesterol, Total Not available Not available Not available halfway goal o f Triglycerides Not available Not available Not available 06/01/2024 8875 Next visit of BMI 25 Not available Not a vailable Not available Blood Pressure Not available Not availab le Not available Next visit of Weight Not available Not available Not available halfway goal o f Hemoglobin A1C Not available Not available Not available long term care administrator goal o f Glucose, Random Not available Not available Not available long term care administrator goal o f HDL Not available Not available Not available long term care administrator goal o f Cholesterol, Total Not available Not available Not available long term care administrator goal o f Triglycerides Not available Not [...] EDT Office Visit [facility] [address], [address] [place] [address], Damion Ibarra MD [address] [facility], [address], [place] [address], Diabetes: Monitor A1c level 6.3% is observed [...] 80-90 or you feel less symptoms. Diabetic Word Processor Technician Referral: [facility] [address] [place] [address] Ph. [phone] Diabetic Vision screening referral: Sandoval Payne MD [address] [place] [address] Ph. [email or web address] Not available 03/28/2024 13:56:58 04/26/2024 [...] as directed and follow up with Diabetic Word Processor Technician as scheduled. Return to to the office [...] ca re 7 to 14 days follow-up* [email or web address] Not available 06/09/2024 14:53:41 Weight loss diet [...] Consider use of topical analgesics such as [facility] [place]. If use of OTC is not working [...] services will determine need for medications. [facility] Not available 05/24/2024 20:53:46 06/01/2024 8875 diabetes [...] or friend to do this for you. [facility] Not available 07/02/2024 15:38:11 Medication and dietary compliance [facility] Not available 07/02/2024 15:31:18 06/23/2024 8987 constipation: ca re instructions [facility] Not available 07/01/2024 14:35:07 learning about type [address] [facility] [facility] Not available 06/23/2024 14:31:44 type 2 diabetes: care instructions [facility] Not available 06/23/2024 14:31:44 dizziness: care instructions [facility] Not available 06/23/2024 14:31:44 High [...] medications. Continue to follow up with your crown pouncer and keep a blood glucose log. For [...] and improvement of constipation. Please inform your crown pouncer of your bile changes for monitoring. 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 Moldovan second language Thank ANGIE [facility] Referring Physician: Renetta Griggs, [facility], Encounter Date: 03/23/2024 Diabetic Nutrition Education Referral for Hypertension in chronic kidney disease stage 2 due to type 2 diabetes mellitus insufficient dietary intake, syncopye and elevated triglyceride. Please contact patient for nutritional education. Patient only eat 1 meal daily with frequent syncope. Patient triglyceride level 409 mg/dlThank ANGIE Warren/[facility] Referring Physician: Renetta Griggs [facility], Encounter Date: 03/23/2024 Home Health Referral for [...] nursing assistance and aid services.Thank Brianna Griggs, [facility]/Dr. Huber, [facility] ([facility]) Referring Physician: Renetta Griggs, Family Medicine, Encounter [...] with a follo w-up test. Not Available [facility] [address] [place], [address], 03/24/2024 09:09:49 03/23/20 24 03/24/2024 COMPR EHENS HASMUKH METAB OLIC PANEL urea nitrogen (BUN) 18 mg/dL 7-25 normal Not Available [facility] [address] [place], [address], 03/24/2024 09:09:49 03/23/20 24 03/24/2024 COMPR EHENS HASMUKH METAB OLIC PANEL creatinine 1.13 mg/dL 0.70-1 .35 normal Not Available [facility] [address] [place], [address], 03/24/2024 09:09:49 03/23/20 24 03/24/2024 COMPR EHENS HASMUKH METAB OLIC PANEL eGFR 74 mL/mi n/1.7 3m2 > or = 60 normal Not Available [facility] [address] [place], [address], 03/24/2024 09:09:49 03/23/20 24 03/24/2024 COMPR EHENS HASMUKH METAB OLIC PANEL BUN/creatini ne ratio SEE NOTE: (calc ) 6-22 Not Repor ti: BUN and Creat inine are withi n refer ence range . Not Available [facility] [address] [place], [address], 03/24/2024 09:09:49 03/23/20 24 03/24/2024 COMPR EHENS HASMUKH METAB OLIC PANEL sodium 137 mmol/ L 135-14 6 normal Not Available [facility] [address] [place], [address], 03/24/2024 09:09:49 03/23/20 24 03/24/2024 COMPR EHENS HASMUKH METAB OLIC PANEL potassium 5.0 mmol/ L 3.5-5. 3 normal Not Available [facility] [address] [place], [address], 03/24/2024 09:09:49 03/23/20 24 03/24/2024 COMPR EHENS HASMUKH METAB OLIC PANEL chloride 102 mmol/ L 98-110 normal Not Available [facility] [address] [place], [address], 03/24/2024 09:09:49 03/23/20 24 03/24/2024 COMPR EHENS HASMUKH METAB OLIC PANEL carbon dioxide 24 mmol/ L 20-32 normal Not Available [facility] [address] [place], [address], 03/24/2024 09:09:49 03/23/20 24 03/24/2024 COMPR EHENS HASMUKH METAB OLIC PANEL calcium 9.7 mg/dL 8.6-10 .3 normal Not Available [facility] [address] [place], [address], 03/24/2024 09:09:49 03/23/20 24 03/24/2024 COMPR EHENS HASMUKH METAB OLIC PANEL protein, total 6.7 g/dL 6.1-8. 1 normal Not Available [facility] [address] [place] [address], [address], 03/24/2024 09:09:49 03/23/20 24 03/24/2024 COMPR EHENS HASMUKH METAB OLIC PANEL albumin 4.4 g/dL 3.6-5. 1 normal Not Available [facility] [address] [place], [address], 03/24/2024 09:09:49 03/23/20 24 03/24/2024 COMPR EHENS HASMUKH METAB OLIC PANEL globulin 2.3 g/dL_ (calc ) 1.9-3. 7 normal Not Available [facility] [address] [place], [address], 03/24/2024 09:09:49 03/23/20 24 03/24/2024 COMPR EHENS HASMUKH METAB OLIC PANEL albumin/glob ulin ratio 1.9 (calc ) 1.0-2. 5 normal Not Available [facility] [address] [place] [address], [address], 03/24/2024 09:09:49 03/23/20 24 03/24/2024 COMPR EHENS HASMUKH METAB OLIC PANEL bilirubin, total 0.5 mg/dL 0.2-1. 2 normal Not Available [facility] [address] [place] [address], [address], 03/24/2024 09:09:49 03/23/20 24 03/24/2024 COMPR EHENS HASMUKH METAB OLIC PANEL alkaline phosphatase 50 U/L 35-144 normal Not Available [facility] [employer] [facility] [address] [place], [address], 03/24/2024 09:09:49 03/23/20 24 03/24/2024 COMPR EHENS HASMUKH METAB OLIC PANEL AST 12 U/L 10-35 normal Not Available [facility] [address] [place] [address], [address], 03/24/2024 09:09:49 03/23/20 24 03/24/2024 COMPR EHENS HASMUKH METAB OLIC PANEL ALT 10 U/L 9-46 normal Not Available [facility] [address] [place], [address], 03/24/2024 09:09:49 03/23/20 24 03/24/2024 CBC (INCL UDES DIFF/ PLT) white blood cell count 5.2 thous and/u L 3.8-10 .8 normal Not Available [facility] [address] [place], [address], 03/24/2024 09:09:50 03/23/20 24 03/24/2024 CBC (INCL UDES DIFF/ PLT) red blood cell count 4.32 lupillo on/uL 4.20-5 .80 normal Not Available [facility] [address] [place] [address], [address], 03/24/2024 09:09:50 03/23/20 24 03/24/2024 CBC (INCL UDES DIFF/ PLT) hemoglobin 12.8 g/dL 13.2-1 7.1 low Not Available [facility] [address] [place], [address], 03/24/2024 09:09:50 03/23/20 24 03/24/2024 CBC (INCL UDES DIFF/ PLT) hematocrit 36.6 % 38.5-5 0.0 low Not Available [facility] [address] [place] [address], [address], 03/24/2024 09:09:50 03/23/20 24 03/24/2024 CBC (INCL UDES DIFF/ PLT) MCV 84.7 fL 80.0-1 00.0 normal Not Available [facility] [address] [place] [address], [address], 03/24/2024 09:09:50 03/23/20 24 03/24/2024 CBC (INCL UDES DIFF/ PLT) MCH 29.6 pg 27.0-3 3.0 normal Not Available [facility] [address] [place] [address], [address], 03/24/2024 09:09:50 03/23/20 24 03/24/2024 CBC (INCL UDES DIFF/ PLT) MCHC 35.0 g/dL 32.0-3 6.0 normal Not Available [facility] [address] [place], [address], 03/24/2024 09:09:50 03/23/20 24 03/24/2024 CBC (INCL UDES DIFF/ PLT) RDW 17.3 % 11.0-1 5.0 high Not Available [facility] [address] [place] [address], [address], 03/24/2024 09:09:50 03/23/20 24 03/24/2024 CBC (INCL UDES DIFF/ PLT) platelet count 204 thous and/u L 140-40 0 normal Not Available [facility] [address] [place] [address], [address], 03/24/2024 09:09:50 03/23/20 24 03/24/2024 CBC (INCL UDES DIFF/ PLT) MPV 9.0 fL 7.5-12 .5 normal Not Available [facility] [address] [place] [address], [address], 03/24/2024 09:09:50 03/23/20 24 03/24/2024 CBC (INCL UDES DIFF/ PLT) absolute neutrophils 2122 cells /uL 1500-7 800 normal Not Available [facility] [address] [place] [address], [address], 03/24/2024 09:09:50 03/23/20 24 03/24/2024 CBC (INCL UDES DIFF/ PLT) absolute lymphocytes 2012 cells /uL 850-39 00 normal Not Available [facility] [address] [place] [address], [address], 03/24/2024 09:09:50 03/23/20 24 03/24/2024 CBC (INCL UDES DIFF/ PLT) absolute monocytes 619 cells /uL 200-95 0 normal Not Available [facility] [address] [place] [address], [address], 03/24/2024 09:09:50 03/23/20 24 03/24/2024 CBC (INCL UDES DIFF/ PLT) absolute eosinophils 390 cells /uL 15-500 normal Not Available [facility] [address] [place] [address], [address], 03/24/2024 09:09:50 03/23/20 24 03/24/2024 CBC (INCL UDES DIFF/ PLT) absolute basophils 57 cells /uL 0-200 normal Not Available [facility] [address] [place] [address], [address], 03/24/2024 09:09:50 03/23/20 24 03/24/2024 CBC (INCL UDES DIFF/ PLT) neutrophils 40.8 % normal Not Available [facility] [address] [place] [address], [address], 03/24/2024 09:09:50 03/23/20 24 03/24/2024 CBC (INCL UDES DIFF/ PLT) lymphocytes 38.7 % normal Not Available [facility] [address] [place] [address], [address], 03/24/2024 09:09:50 03/23/20 24 03/24/2024 CBC (INCL UDES DIFF/ PLT) monocytes 11.9 % normal Not Available [facility] [address] [place] [address], [address], 03/24/2024 09:09:50 03/23/20 24 03/24/2024 CBC (INCL UDES DIFF/ PLT) eosinophils 7.5 % normal Not Available [facility] [address] [place] [address], [address], 03/24/2024 09:09:50 03/23/20 24 03/24/2024 CBC (INCL UDES DIFF/ PLT) basophils 1.1 % normal Not Available [facility] [address] [place], [address], 03/24/2024 09:09:50 03/23/20 24 03/24/2024 VITAM IN [...] /MS is recom nhan d: order code 29787 (cj ents >2yrs ). See Note 1 Note 1 For addit ional infor liban miller e refer to http: //[facility]o segundo.Que stDia gnost ics.c om/fa q/FAQ 199 (This link is being provi ded for infor aubrey osn/ educrashawn gerard purpo ses only. ) Not Available [facility] [address] [place], [address], 03/24/2024 09:09:50 03/23/20 24 03/23/2024 gluco se, finge rstic k, blood Blood Glucose: mg/dl 160 Not Available Main O ffice [address] [place], [address], 03/23/2024 15:32:35 03/24/20 24 03/24/2024 urina lysis , dipst ick Leukocytes Negati ve Not Available Main Office [address] [place], [address], 03/24/2024 09:28:06 03/24/20 24 03/24/2024 urina lysis , dipst ick Nitrite negati ve Not Available Main Office [address] [place] [address], [address], 03/24/2024 09:28:06 03/24/20 24 03/24/2024 urina lysis , dipst ick Urobilinogen 4 Not Available Main Office [address] [place] [address], [address], 03/24/2024 09:28:06 03/24/20 24 03/24/2024 urina lysis , dipst ick Protein Negati ve Not Available Main Office [address] [place] [address], [address], 03/24/2024 09:28:06 03/24/20 24 03/24/2024 urina lysis , dipst ick pH 6.5 Not Available Main Offic e [address] [place] [address], [address], 03/24/2024 09:28:06 03/24/20 24 03/24/2024 urina lysis , dipst ick Blood Negati ve Not Available Main Office [address] [place] [address], [address], 03/24/2024 09:28:06 03/24/20 24 03/24/2024 urina lysis , dipst ick Specific [place] 1.015 Not Available Main O ffice [address] [place] [address], [address], 03/24/2024 09:28:06 03/24/20 24 03/24/2024 urina lysis , dipst ick Ketone Negati ve Not Available Main Office [address] [place] [address], [address], 03/24/2024 09:28:06 03/24/20 24 03/24/2024 urina lysis , dipst ick Bilirubin Negati ve Not Available Main Office [address] [place] [address], [address], 03/24/2024 09:28:06 03/24/20 24 03/24/2024 urina lysis , dipst ick Glucose Negati ve Not Available Main Office [address] [place] [address], [address], 03/24/2024 09:28:06 03/24/20 24 03/24/2024 urina lysis , dipst ick Appearance Slight ly Cloudy Not Available Main Office [address] [place] [address], [address], 03/24/2024 09:28:06 03/24/20 24 03/24/2024 urina lysis , dipst ick Color Yellow Not Available Main Offic e [address] [place] [address], [address], 03/24/2024 09:28:06 04/26/20 24 04/26/2024 weigh t check * Weight Measure abnorm al Not Available Main Office [address] [place] [address], [address], 04/26/2024 16:59:50 04/26/20 24 04/26/2024 weigh t check * Weight/BMI 190.8l bs/38. 5% Not Available Main Office [address] [place] [address], [address], 04/26/2024 16:59:50 04/26/20 24 04/26/2024 blood press ure check * Unknown Analyte 122 Not Available Main O ffice [address] [place] [address], [address], 04/26/2024 15:51:31 04/26/20 24 04/26/2024 blood press ure check * Unknown Analyte 60 Not Available Main O ffice [address] [place] [address], [address], 04/26/2024 15:51:31 04/26/20 24 04/26/2024 gluco se, finge rstic k, blood Blood Glucose: mg/dl 145 Not Available Main O ffice [address] [place], [address], 04/26/2024 15:21:57 05/24/20 24 05/24/2024 gluco se, finge rstic k, blood Blood Glucose: mg/dl 161 Not Available Main O ffice [address] [place], [address], 05/24/2024 15:27:34 06/01/20 24 06/01/2024 gluco se, finge rstic k, blood Blood Glucose: mg/dl 137 Not Available Main O ffice [address] [place] [address], [address], 06/01/2024 15:19:57 07/02/20 24 07/02/2024 gluco se, finge rstic k, blood Blood Glucose: mg/dl 122 Not Available Main O ffice [address] [place] [address], [address], 07/02/2024 15:44:34 Result Notes None recorded. Problems Name Problem SNOMED Code Status Onset Date Resolution Date Notes Provider Name and Address Organization Details Recorded Time Type 2 diabetes mellitus 50470546 Active 2022 Renetta slaughter [address], [address] , [employer] 21:55:00 Dental abscess 368066807 Completed 202209/01/2023 Removal Reason: Resolved Renetta slaughter [address], [address] , [employer] 07:39:25 Morbid obesity 238349590 Completed 202212/22/2023 Removal Reason: improved Renetta slaughter, [address], [address] , [facility] 4 09:22:18 Hyperlip idemia screenin g Active 2022 Renetta Zabala-Lynn slaughter, [address], [address] , [facility] 3 05:04:07 Cerebral arteriov enous malforma tion 535127610 Active 2020 Renetta Zabala-Lynn slaughter, [address], [address] [place] [address] , [facility] 3 05:01:31 Phimosis 652662978 Active 2020 Renetta Zabala-Lynn slaughter, [address], [address] [place] [address] , [facility] 3 05:02:07 History of cocaine abuse 44990054928 9106 Active 2019 Renetta slaughter, [address], [address] , [facility] 3 05:03:25 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 42343513941 9102 Active 2015 Renetta slaughter, [address], [address] , [facility] 3 05:07:31 Recurren t major depressi on 04543327 Active 2022 Renetta Zabala-Gas sukhjinder, [address], [address] , [facility] 3 05:21:40 Anxiety attack 040263831 Active 2022 Renetta Zabala-Gas sukhjinder, [address], [address] , [employer], [facility] 3 05:23:11 Low back pain 536445919 Active 2022 Renetta Zabala-Lynn slaughter, [address], [address] , [employer], [facility] 3 21:41:30 Dental caries 64857809 Active 2022 Renetta Zabala-Gas ton, [address], [address] , [employer], [facility] 3 11:31:03 Atopic dermatit is 52717609 Active 2022 Renetta Zabala-Gas sukhjinder, [address], [address] , [employer], [facility] 3 11:31:36 Essentia l hyperten yvrose 52857382 Completed 202212/22/2023 Removal Reason: duplicat ion Renetta slaughter, [address], [address] , [employer], [facility] 4 09:23:02 Hyperlip idemia 98957619 Active 2022 Renetta Zabala-Gas sukhjinder, [address], [address] , [employer], [facility] 3 06:53:36 Congesti ve heart failure 72112308 Completed 202212/22/2023 Removal Reason: duplicat ion Renetta Zabala-Gas ton, [address], [address] , [employer], [facility] 4 09:27:01 Angina co-occur rent and due to coronary arterios clerosis 20193400325 134632 Active 2022 eRnetta Loboall-Gas ton, [address], [address] , [facility] [employer] [facility] 3 16:07:15 Chronic kidney disease 729953652 Active 2022 Renetta slaughter, [address] [address], [address] , [facility] [employer] [facility] 3 20:49:26 Bleeding from nose 781447008 Completed 202212/22/2023 Removal Reason: resolved Renetta slaughter, [address], [address] , [employer] [facility] 4 09:22:34 Pain of bilatera l knee joints 58087531846 4104 Active 2023 Renetta slaughter, [address], [address] , [facility] [employer] [facility] 4 16:45:25 Benign hyperten sive heart disease without congesti ve heart failure 07752473 Active 2023 Renetta slaughter, [address], [address] , [facility] [employer] [facility] 4 09:25:43 Depressi ve disorder 06462803 Active 2023 Renetta slaughter, [address], [address] , [facility] [employer], [facility] 4 09:25:36 Dizzines s 791499966 Active 2023 Chastity melvin, [facility], [facility] 4 14:08:11 Tremor 07325587 Active 2023 Chastity melvin, [facility], [facility] 4 14:11:58 Falls 656459326 Active 2023 Renetta slaughter, [address], [address] , [address], [facility] 4 17:21:51 Chronic kidney disease due to type 2 diabetes mellitus 14564082830 8 Active 2023 Renetta slaughter, [address], [address] , [address], [facility] 4 18:30:26 Vitamin D deficien cy 55891932 Active 2023 Renetta Zabala-Lynn slaughter, [address], [address] , [address], [employer] 4 12:38:05 Body mass index 30+ - obesity 157777630 Active 2023 Renetta Zabala-Lynn slaughter, [address], [address] , [address], [employer] 4 17:00:47 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 [...] /min 16 /min 97.3 [degF] 39.2 kg/m2 65114.6 4 g 97 % 97 % 122 mm[Hg] 78 mm[Hg] [facility] 4 15:32:08 Date Recorded Body height Body temperature Body mass index (BMI) Body weight Oxygen saturation Oxygen saturation in Arterial blood by Pulse oximetry Heart rate Respiratory rate Provider Name and Address Organization Details Last Updated DateTime 4 149.86 cm 97.3 [degF] 38.5 kg/m2 83462.4 2 g 95 % 95 % 97 /min 18 /min [facility] 4 15:12:51 Date Recorded Systolic blood pressure Diastolic blood pressure Provider Name and Address Organization Details Last Updated DateTime 04/26/2024 122 mm[Hg] 60 mm[Hg] Renetta Griggs , [facility]- [address] [place], [address], [facility], [facility] 04/26/2024 15:41:17 Date Recorded Body height Heart rate Respiratory rate Body temperature Body mass index (BMI) Body weight Oxygen saturation Oxygen saturation in Arterial blood by Pulse oximetry Systolic blood pressure Diastolic blood pressure Provider Name and Address Organization Details Last Updated DateTime 4 149.86 cm 96 /min 16 /min 97.3 [degF] 38.1 kg/m2 50041.5 2 g 96 % 96 % 110 mm[Hg] 60 mm[Hg] Jose Gabino [place] [employer] 4 15:16:02 Date Recorded Body height Body mass index (BMI) Body weight Body temperature Heart rate Oxygen saturation Oxygen saturation in Arterial blood by Pulse oximetry Respiratory rate Systolic blood pressure Diastolic blood pressure Provider Name and Address Organization Details Last Updated DateTime 4 149.86 cm 37.8 kg/m2 95366.4 9 g 97.9 [degF] 100 /min 93 % 93 % 16 /min 100 mm[Hg] 60 mm[Hg] [facility], [employer]- [address] [place], [address] [place], [place] [employer] [facility] 4 15:29:44 Date Recorded Body height Heart rate Respiratory rate Body temperature Body mass index (BMI) Body weight Oxygen saturation Oxygen saturation in Arterial blood by Pulse oximetry Systolic blood pressure Diastolic blood pressure Provider Name and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 2 [place] Justin Garrido [id number] Justin Garrido 05/24/2024 1 [employer] (MEDICARE REPLACEMENT HMO) Justin Garrido [id number] Justin Garrido 05/24/2024 2 [place] Justin Garrido [id number] Justin Garrido 06/01/2024 1 [employer] (MEDICARE REPLACEMENT HMO) Justin Garrido [id number] Justin Garrido 06/01/2024 2 [place] Justin Garrido [id number] Justin Garrido 06/23/2024 1 [employer] (MEDICARE REPLACEMENT HMO) Justin Garrido [id number] Justin Garrido 06/23/2024 2 [place] Justin Garrido [id number] Justin Garrido Notes Date Note Type Note [...] becoming dizzy) Prior opinioncardiology Renetta Alvarado n, [facility] [address] [place], [address], [facility] [employer]hands [facility] 03/28/2024 13:58:49 4 text/htm l DiabetesReported [...] reports only miss lunch daily. Renetta segundo, [facility] [address] [place] [address], [phone], [facility] [employer] [facility] 04/26/2024 17:02:17 4 text/htm l DiabetesReported bypatient.Review [...] right arm pain r/t Renetta Alvarado n, [facility]- [address] [place], [address], [facility], [facility] 05/24/2024 20:54:31 4 text/htm l DiabetesReported [...] thinner right arm pain r/t Renetta segundo, [facility]- [address] [place], [address], [facility] CLAUDE JIMENEZ 07/02/2024 15:39:38 4 text/htm [...] had evaluations by back specialist Renetta segundo, [facility] [facility] [address] [place], [address], [facility] CLAUDE JIMENEZ 07/02/2024 15:50:52
--- OUTSIDE RECORDS SUMMARY | 2025-02-25 22:50 | XMS_ITS | CCD ---
Author Name Jimmie Montes De Ocaratna Address [address] [place] [address] Phone Organization [facility] Phone Care Team Providers Care Clinical Training Coordinator Name Role Phone Alycia Weaver NP Primary Care Provider Unavailabl e Unavailable Chronic Care Management Unavaila ble Summary Purpose DataExchange Insurance Providers Payer name Policy type / Coverage type Covered republican ID Effective Begin Date Effective End Date [place] [id number] Unknown Unknown NO COPAY HOLD [id number] Unknown Unknown Family History Family History data [...] Fill Instructions quetiapine 300 mg tablet RxNorm: 983316 Take 1 Tablet(s) Oral every night at bedtime 08/25/20 Active benztropine 0.5 mg tablet RxNorm: 369633 Take 1 Tablet(s) Oral every day 08/25/20 Active buspirone 15 mg tablet RxNorm: 127993 Take 1 Tablet(s) Oral two times a day 08/25/20 Active trazodone 150 mg tablet RxNorm: 826593 Take 1 Tablet(s) Oral every night at bedtime 08/25/20 Active nitroglycerin 0.4 mg sublingual tablet RxNorm: 934899 Take 1 Tablet(s) Sublingual every 5 minutes as needed for chest pain. Do not exceed 3 doses in 15 minutes 04/02/20 24 Inactive albuterol sulfate HFA 90 mcg/actuation aerosol inhaler RxNorm: 2640425 Administer 2 Puff(s) Inhalation every 6 hours as needed 04/02/20 24 Inactive Toujeo Max U-300 SoloStar 300 unit/mL (3 mL) subcutaneous insulin pen RxNorm: 9318366 Administer 13 Unit(s) Subcutaneous two times a day 13 units in the morning and 13 units in the evening 04/02/20 No Stop Date Active Flonase Allergy Relief 50 mcg/actuation nasal spray,suspension RxNorm: 6370080 Wheeler 2 Wheeler Nasal every day 04/02/20 24 024 Inactive isosorbide mononitrate ER 30 mg tablet,extended release 24 hr RxNorm: 826852 Take 1 Tablet(s) Oral every morning 04/02/20 025 Active Ozempic 2 mg/dose (8 mg/3 mL) subcutaneous pen injector RxNorm: 7748893 Administer 2 Milligram(s) Subcutaneous once a week 04/02/20 No Stop Date Active duloxetine 30 mg capsule,delayed release RxNorm: 809333 Take 3 Capsule(s) Oral once daily 04/02/20 025 Active olanzapine 7.5 mg tablet RxNorm: 660640 Take 1 Tablet(s) Oral every night at bedtime 04/02/20 025 Active metformin 1,000 mg tablet RxNorm: 980206 Take 1 Tablet(s) Oral two times a day 04/02/20 025 Active allopurinol 100 mg tablet RxNorm: 556883 Take 1 Tablet(s) Oral 2 times a week 04/02/20 025 Active loratadine 10 mg tablet RxNorm: 078314 Take 1 Tablet(s) Oral every day 04/02/20 025 Active lisinopril 20 mg tablet RxNorm: 577268 Take 1 Tablet(s) Oral every day 04/02/20 025 Active buspirone 10 mg tablet RxNorm: 850074 Take 1 Tablet(s) Oral two times a day 04/02/20 24 024 Inactive lisinopril 20 mg tablet RxNorm: 398250 Take 1 Tablet(s) Oral every day 12/09/19 24 024 Inactive aspirin 81 mg tablet,delayed release RxNorm: 563663 Take 1 Tablet(s) Oral every day 06/10/20 023 Inactive ranolazine ER 500 mg tablet,extended release,12 hr RxNorm: 577792 Take 1 Tablet(s) Oral two times a day 06/10/20 No Stop Date Active furosemide 20 mg tablet RxNorm: 736147 Take 1 Tablet(s) Oral every day 06/10/20 No Stop Date Active hydrochlorothiazide 12.5 mg tablet RxNorm: 646268 Take 1 Tablet(s) Oral every day 06/10/20 No Stop Date Active pantoprazole 40 mg tablet,delayed release RxNorm: 222992 Take 1 Tablet(s) Oral every morning 06/10/20 No Stop Date Active divalproex 500 mg tablet,delayed release RxNorm: 2189866 Take 1 Tablet(s) Oral two times a day for mood 06/10/20 No Stop Date Active atorvastatin 40 mg tablet RxNorm: 636716 Take 1 Tablet(s) Oral every evening 06/10/20 023 Inactive gabapentin 600 mg tablet RxNorm: 651526 Take 1 Tablet(s) Oral two times a day 06/10/20 No Stop Date Active citalopram 20 mg tablet RxNorm: 576953 Take 1 Tablet(s) Oral every day 06/10/20 No Stop Date Active clopidogrel 75 mg tablet RxNorm: 979527 Take 1 Tablet(s) Oral every day 06/10/20 No Stop Date Active hydroxyzine HCl 25 mg tablet RxNorm: 408450 Take 1 Tablet(s) Oral two times a day as needed for anxiety 06/10/20 No Stop Date Active buspirone 15 mg tablet RxNorm: 310064 Take 1 Tablet(s) Oral two times a day for anxiety 06/10/20 024 Inactive Ozempic 1 mg/dose (4 mg/3 mL) subcutaneous pen injector RxNorm: 4736238 Inject 1 Milligram(s) Subcutaneous once a week 06/10/20 024 Inactive duloxetine 60 mg capsule,delayed release RxNorm: 375110 Take 1 Capsule(s) Oral every day 06/10/20 024 Inactive metformin 500 mg tablet RxNorm: 904444 Take 1 Tablet(s) Oral two times a day 06/10/20 023 Inactive quetiapine 400 mg tablet RxNorm: 190285 Take 1 Tablet(s) Oral every evening for sleep and pspychosis 06/10/20 024 Inactive lisinopril 10 mg tablet RxNorm: 343292 Take 1 Tablet(s) Oral every day 06/10/20 024 Inactive Toujeo SoloStar U-300 Insulin 300 unit/mL (1.5 mL) subcutaneous pen RxNorm: 6440832 Administer 60 Unit(s) Subcutaneous every morning and 30 Units every evening 06/10/20 024 Inactive allopurinol 100 mg tablet RxNorm: 663021 Take 1 Tablet(s) Oral every day 06/10/20 024 Inactive Toujeo Max U-300 SoloStar subcutaneous RxNorm: 1448930 subcutaneous 06/10/20 023 Inactive Medication Administered No Medication Administered data Procedures Procedure Codes Date Screening for clinical depre ssion is positive and follow up plan documented CPT-4: G8431 06/17/2024 O5M-Mbodomjkqjrvhyl CPT-4: 55423 Unknown M7Z-Dubuqatmomkdmxo CPT-4: 64928 Unknown Y8H-Svenhqjlaowvnxx CPT-4: 89071 Unknown L3I-Wekrjqwmjiujtlo CPT-4: 48862 Unknown Fecal Occult Blood Test (FOBT) Screening CPT-4: G0328 Unknown Reason For Visit No Reason For Visit data Plan of Care Planned Activity Notes Codes Status Date Patient Education: Patient Medication Summary Completed 02/11/2025 Appointment: Hugo Rich WPtel: [address] [place] [address] E180 08/25/2024 Appointment: Karen Calero WPtel: [address] [place] [address] E180 06/17/2024 Appointment: Karen Calero WPtel: [address] [place] [address] E180 04/02/2024 Appointment: Marivel Lloyd WPtel: [address] [place] [address] E180 12/09/2023 Appointment: Marivel Lloyd WPtel: [address] E180 09/24/2023 Appointment: Marivel Lloyd WPtel: [address] N180 06/10/2023 Appointment: Marivel Lloyd WPtel: [address] [place] [address] N180 05/15/2023 Referral: Housing Coordination Referral Initi ated Referral: Pending Medical Records Information faxed MR request Order Faxed Referral: Pending Medical Records Information FAXED [facility] [phone] Order Faxed Medical Equipment No Medical Equipment [...]
[2025-02-26] MEDS: Cyclobenzaprine HCl 10 MG TABLET PO (01:03)
[2025-02-26] MEDS: Morphine Sulfate Immed Release 15 MG TABLET PO (01:03)
[2025-02-26 03:15] VITALS: BP 118/79; PULSE 77; RESP 16; TEMP 36.1; O2SAT 98
== END 2025-02-26 03:16 | disposition home or self-care (01) ==
PROVIDERS: Nurse Practitioner Family; Emergency Provider Internal Medicine
DX: M54.40 Lumbago with sciatica, unspecified side (principal); R07.9 Chest pain, unspecified; I25.10 Atherosclerotic heart disease of native coronary artery without angina pectoris; Z03.818 Encounter for observation for suspected exposure to other biological agents ruled out
CPT/HCPCS: 0241U; 71046; 74176; 80053; 81003; 83690; 83735; 83880; 84484; 85025; 93005; 99284; 99285

== ENCOUNTER → 2025-02-25 18:38 | Outpatient (BNV) | payer OTHER, SELFPAY | PROVIDERS: Emergency Provider Internal Medicine; Visit Provider Internal Medicine Cardiovascular Disease | DX: I45.10 Unspecified right bundle-branch block (principal) | CPT/HCPCS: 93010 ==

== ENCOUNTER → 2025-02-25 18:59 | Outpatient (BNV) | payer OTHER, SELFPAY | PROVIDERS: Visit Provider Radiology Neuroradiology | DX: J98.11 Atelectasis (principal) | CPT/HCPCS: 71046 ==

== ENCOUNTER → 2025-02-26 00:22 | Outpatient (BNV) | payer OTHER, SELFPAY | PROVIDERS: Emergency Provider Internal Medicine; Visit Provider Radiology Neuroradiology | DX: N20.0 Calculus of kidney (principal); R19.5 Other fecal abnormalities; R91.8 Other nonspecific abnormal finding of lung field | CPT/HCPCS: 74176 ==